=== PATIENT | female | born 1945 | race Caucasian/White ===

== ENCOUNTER 2018-05-18 19:21 | Inpatient (IN) ==
--- NOTE | 2018-05-18 20:25 | XR ---
EXAM DATE: 05/18/2018 7:31 PM EDT AGE/SEX: 73 years / Female INDICATIONS: Short of breath. CLINICAL DATA: This is the patient's initial encounter. Patient reports that signs and symptoms have been present for 1 day and indicates a pain score of 0/10. MEDICAL/SURGICAL HISTORY: Non-responsive. . COMPARISON: No prior exams available for comparison. FINDINGS: Mild left base consolidation noted. No pleural effusion seen. No pneumothorax. Heart size within normal limits. Thoracic aorta is mildly tortuous. CONCLUSION: Mild left base consolidation. Electronically signed by: Kyler García MD 05/18/2018 8:24 PM EDT
[2018-05-18 20:28] LABS: Baso # (Auto) 0.1 th/mm3 (0.0-0.2); Baso % (Auto) 0.7 % (0.0-2.0); Eos % (Auto) 0.2 % (0.0-4.0); Hematocrit 36.1 % (35.0-46.0); Hemoglobin 11.9 gm/dL (11.6-15.3); Lymph % (Auto) 5.8 % (9.0-44.0); Mean Corpuscular HGB Conc 33.1 % (32.0-36.0); Mean Corpuscular Hemoglobin 30.9 pg (27.0-34.0); Mean Corpuscular Volume 93.6 fL (80.0-100.0); Mean Platelet Volume 9.9 fL (7.0-11.0); Neut # (Auto) 14.6 th/mm3 (1.8-7.7); Neut % (Auto) 87.3 % (16.0-70.0); Platelet Count 238 th/mm3 (150-450); Red Blood Count 3.86 mil/mm3 (4.00-5.30); Red Cell Distribution Width 16.6 % (11.6-17.2); White Blood Count 16.7 th/mm3 (4.0-11.0)
[2018-05-18] MEDS ORDERED: Azithromycin Inj 500 MG in Sodium Chlor 0.9% Inj 250 ML IV.SIG ONE (20:41)
[2018-05-18 20:49] LABS: Calcium 8.8 mg/dL (8.5-10.1); Carbon Dioxide 23.5 meq/L (21.0-32.0); Potassium 5.3 meq/L (3.5-5.1)
--- NOTE | 2018-05-18 20:49 | ED ---
HPI General Chief Complaint: Shortness of Breath/Dyspnea Stated Complaint: [facility] [place] Time Seen by Provider: 05/18/18 19:31 Source: patient, EMS and RN notes reviewed Mode of arrival: EMS Limitations: altered mental status History of Present Illness 73-year-old female that presents to the ED via [facility] for evaluation of shortness of breath. Patient lives in an [place]. Patient apparently was found to have a low oxygenation in the 80s. Patient has a chronic history of COPD. She uses inhalers. Apparently EVAC gave her inhalers as well as oxygen. She uses 2 L of oxygen at home. She apparently was still low even after breathing treatments. The brought her here for evaluation. Patient oxygenation per EVAC was in the 90s low 90s. Patient herself does not complain of anything but she does have a history of dementia. Per history I was given by EVAC she has been more confused than usual. He has been having cough and congestion. Symptoms started today. Patient was given Solu-Medrol on the way here. No other medical issues. No chest pain. Patient herself does not really complain of anything and is a hard historian. Related Data Allergies Allergy/AdvReac Type Severity Reaction Status Date / Time penicillin G Allergy Unknown Rash Unverified 05/18/18 19:30 Review of Systems ROS: all other systems reviewed are negative PMFSH History History Provided By: Patient Medical History Medical History COPD (chronic obstructive pulmonary disease) (Acute) Dementia (Acute) Diabetes (Acute) Hypertension (Acute) Rheumatoid arthritis (Acute) Social History Social History Substance History: No History of Abuse Smoking Status: Former smoker How Often Do You Have a Drink Containing Alcohol: Never Recent Travel in [facility] within the Last 8 Weeks: No Recent Out of Country Travel within the Last 8 Weeks: No Exam Narrative Exam Narrative: GENERAL: Well groomed in some distress. SKIN: Focused skin assessment warm/dry. HEAD: Atraumatic. Normocephalic. EYES: Pupils equal and round. No scleral icterus. No injection or drainage. ENT: No nasal bleeding or discharge. Mucous membranes pink and moist. Tongue is midline. No uvula deviation. NECK: Trachea midline. No JVD. CARDIOVASCULAR: Regular rate and rhythm. No murmur appreciated. RESPIRATORY: No accessory muscle use. Clear to auscultation. Breath sounds equal bilaterally. GASTROINTESTINAL: Abdomen soft, non-tender, nondistended. Hepatic and splenic margins not palpable. MUSCULOSKELETAL: No obvious deformities. No clubbing. No cyanosis. No edema. Full range of the upper and lower extremities bilaterally. 2+ pulses bilaterally. NEUROLOGICAL: Awake and alert. No obvious cranial nerve deficits. Motor grossly within normal limits. Normal speech. PSYCHIATRIC: Appropriate mood and affect; insight and judgment normal. Course Initial Documented Vital Signs Temperature 99.9 F H 05/18/18 19:31 Pulse Rate 121 H 05/18/18 19:31 Respiratory Rate 22 05/18/18 19:31 Blood Pressure 147/67 H 05/18/18 19:31 Pulse Oximetry 94 L 05/18/18 19:31 Last Documented Vital Signs Temperature 99.9 F H 05/18/18 19:31 Pulse Rate 111 H 05/18/18 21:41 Respiratory Rate 21 05/18/18 21:41 Blood Pressure 105/58 L 05/18/18 21:41 Pulse Oximetry 97 05/18/18 21:41 Medical Decision Making YOBANI Attestation YOBANI supervised visit: Yes Attestation: I, Dr. Wei, have reviewed the advance practice practitioner's documentation and am in agreement, met with the patient face to face, made the diagnosis, and the medical decision making was done by me. The patient was initially evaluated by Carl, the YOBANI. Please see their complete history and physical. *My assessment and Findings: The patient presents with a history of shortness of breath noted by her assisted living facility staff prior to arrival. The patient unfortunately is a poor historian with a history of dementia. The patient's O2 saturations were noted to be in the 80s prior to arrival. On arrival, patient was noted to have increased work of breathing, tachypnea in spite of nebulizer treatments, therefore the patient was placed on BiPAP. The patient is DNR. The patient after reassessment on BiPAP reports that her shortness of breath is improved. She denies having any complaints of chest pain or pressure. During the course of the patient's emergency department visit, the patient's history, examination, and differential diagnosis were reviewed with the patient. The patient was placed on a conveyor monitor with oximetry and frequent blood pressure monitoring. The patient had IV access obtained and blood work sent for analysis. The patient was initially provided normal saline IV fluid bolus, albuterol nebulizer treatment, placement on BiPAP. The patient's laboratory studies were reviewed and remarkable for a white count of 16.7, hemoglobin 11.9, platelets 237 with 87.3 Neutrophils ABG done prior to BiPAP administration reveals a PO2 of 8.7, pH is 7.35, PCO2 42, PO2 66, hemoglobin 11.8, bicarb 23. Chemistry is remarkable for a potassium of 5.3, BUN 30, creatinine 1.83, lactic acid is 4.1. The patient will be continued on IV fluid resuscitation. The chest x-ray reveals mild left base consolidation. The patient on reexamination on BiPAP is improved regarding her shortness of breath, however she is tachycardic with a heart rate in the 120s and a blood pressure systolic 195/130. This appears to be atrial flutter. The patient will be given a dose of Cardizem IV. The patient's results were discussed with the patient, including the plan of care. I explained that further testing and/ or monitoring is indicated based on the patient's history, examination, and/ or laboratory findings. Therefore, I recommended admission for additional evaluation. The patient expressed understanding and was agreeable with this plan. The patient was admitted to the hospital in guarded condition and sent to a bed under the care of the [facility] service. [facility] Narrative Medical decision making narrative: 73-year-old female that presents to the ED for evaluation of shortness of breath. Patient was properly examined and was found to have signs and symptoms concerning for COPD exacerbation. Labs and imaging were ordered. Labs and imaging were positive for pneumonia and what appears to be respiratory distress. Patient was put on BiPAP as she could not do well with the oxygen and breathing treatments. She seems to be doing better. Chest x-ray did show pneumonia and elevated white blood cell count as well as lactic acidosis. Patient was started on antibiotics. ABG was recheck and oxygenation appears to have improved but patient started to become more acidotic. Settings for the BiPAP were changed from 10/5 to 15/5. Patient was given IV fluids as well. Overall patient herself looks better. Because of her possible pneumonia and lactic acidosis and need for BiPAP recommendations for admission. My attending Dr. Wei herself evaluate the patient agrees the patient can be admitted to medicine. Dr. Stark agreed to admission to her service. Medical Screen Exam Complete: Yes Emergency Medical Condition: Yes Differential Diagnosis Differential Diagnosis: Pneumonia versus COPD exacerbation versus respiratory failure versus respiratory distress Medical Records Medical records reviewed: Yes I reviewed the patient's medical records. Lab Data Lab results reviewed: Yes I reviewed the patient's lab results. Lab results narrative: Lactic acid elevated Result diagrams: 05/18/18 19:44 05/18/18 19:44 Lab Results 05/18/18 05/18/18 05/18/18 Range/Units 19:44 19:44 19:44 WBC 16.7 H (4.0-11.0) th/mm3 RBC 3.86 L (4.00-5.30) mil/mm3 Hgb 11.9 (11.6-15.3) gm/dL Hct 36.1 (35.0-46.0) % MCV 93.6 (80.0-100.0) fL MCH 30.9 (27.0-34.0) pg MCHC 33.1 (32.0-36.0) % RDW 16.6 (11.6-17.2) % Plt Count 238 (150-450) th/mm3 MPV 9.9 (7.0-11.0) fL Neut % (Auto) 87.3 H (16.0-70.0) % Lymph % (Auto) 5.8 L (9.0-44.0) % [place] % (Auto) 6.0 (0.0-8.0) % Eos % (Auto) 0.2 (0.0-4.0) % Baso % (Auto) 0.7 (0.0-2.0) % Neut # (Auto) 14.6 H (1.8-7.7) th/mm3 Lymph # (Auto) 1.0 (1.0-4.8) th/mm3 [place] # (Auto) 1.0 H (0.0-0.9) th/mm3 Eos # (Auto) 0.0 (0.0-0.4) th/mm3 Baso # (Auto) 0.1 (0.0-0.2) th/mm3 WBC Differential . Differential Comment Auto diff final Puncture Site Patient Temperature O2 Saturation (90-100) % ABG pH (7.380-7.420) ABG pCO2 (38-42) mmHg ABG pO2 (61-120) mmHg ABG HCO3 (22-26) mmol/L ABG O2 Content (12.0-20.0) Vol % ABG Base Excess (-2-2) mmol/L ABG Methemoglobin (0-2) % Laz Test Hemoglobin (12.0-16.0) G/DL Carboxyhemoglobin (0-4) % O2 Delivery Device Liter Flow L/M Vent Setting Inspired O2 % Critical Value Sodium 136 (136-145) meq/L Potassium 5.3 H (3.5-5.1) meq/L Chloride 99 (98-107) meq/L Carbon Dioxide 23.5 (21.0-32.0) meq/L Anion Gap 14 (5-15) meq/L BUN 30 H (7-18) mg/dL Creatinine 1.83 H (0.50-1.00) mg/dL Estimated GFR 27 L (>89) mL/min Random Glucose 251 H (74-106) mg/dL Lactic Acid 4.1 H* (0.4-2.0) mmol/L Calcium 8.8 (8.5-10.1) mg/dL 05/18/18 05/18/18 Range/Units 20:00 21:14 WBC (4.0-11.0) th/mm3 RBC (4.00-5.30) mil/mm3 Hgb (11.6-15.3) gm/dL Hct (35.0-46.0) % MCV (80.0-100.0) fL MCH (27.0-34.0) pg MCHC (32.0-36.0) % RDW (11.6-17.2) % Plt Count (150-450) th/mm3 MPV (7.0-11.0) fL Neut % (Auto) (16.0-70.0) % Lymph % (Auto) (9.0-44.0) % [place] % (Auto) (0.0-8.0) % Eos % (Auto) (0.0-4.0) % Baso % (Auto) (0.0-2.0) % Neut # (Auto) (1.8-7.7) th/mm3 Lymph # (Auto) (1.0-4.8) th/mm3 [place] # (Auto) (0.0-0.9) th/mm3 Eos # (Auto) (0.0-0.4) th/mm3 Baso # (Auto) (0.0-0.2) th/mm3 WBC Differential Differential Comment Puncture Site Right radial Left radial Patient Temperature 98.6 98.6 O2 Saturation 87 L* 91 (90-100) % ABG pH 7.35 L 7.27 L* (7.380-7.420) ABG pCO2 42 44 H (38-42) mmHg ABG pO2 66 82 (61-120) mmHg ABG HCO3 23 20 L (22-26) mmol/L ABG O2 Content 14.6 14.7 (12.0-20.0) Vol % ABG Base Excess -1.9 -6.0 L (-2-2) mmol/L ABG Methemoglobin 0.6 0.7 (0-2) % Laz Test Present Present Hemoglobin 11.8 L 11.4 L (12.0-16.0) G/DL Carboxyhemoglobin 1.7 1.4 (0-4) % O2 Delivery Device Mask Bipap Liter Flow 8.00 L/M Vent Setting Ipap10/epap5 Inspired O2 50 % Critical Value Yes Yes Sodium (136-145) meq/L Potassium (3.5-5.1) meq/L Chloride (98-107) meq/L Carbon Dioxide (21.0-32.0) meq/L Anion Gap (5-15) meq/L BUN (7-18) mg/dL Creatinine (0.50-1.00) mg/dL Estimated GFR (>89) mL/min Random Glucose (74-106) mg/dL Lactic Acid (0.4-2.0) mmol/L Calcium (8.5-10.1) mg/dL Imaging Data Attestation: I personally reviewed and interpreted this imaging study as follows : Radiologist's impression: Chest X-Ray 05/18/18 19:31 CONCLUSION: Mild left base consolidation. ECG Data Attestation: I personally reviewed and interpreted this ECG as follows: Interpretation: The patient had an EKG done that shows what appears to be atrial flutter with a heart rate of 127, QRS duration 119ms with a moderate intraventricular conduction delay, QTC [address] segment elevation. Discharge Plan Discharge Disposition Patient Disposition: 30 Still Patient Discharge Details Diagnosis: Respiratory failure, COPD exacerbation, Pneumonia Physicians Team ED Provider: Joie Wei ED Midlevel Provider: Carl Olivera Primary Care Provider: Carlos Broussard Attending Provider: Antonia Stark Status ED Status: Admitted Patient
[2018-05-18] MEDS ORDERED: Sod Chloride 0.9% Inj 1,000 ML IV.SIG SCH ×2 (20:56→21:30)
[2018-05-18 21:07] LABS: ABG Base Excess -1.9 mmol/L (-2-2); ABG PCO2 42 mmHg (38-42); ABG PO2 66 mmHg (61-120)
[2018-05-18 21:48] LABS: ABG PCO2 44 mmHg (38-42); ABG PO2 82 mmHg (61-120)
[2018-05-18] MEDS ORDERED: Dextrose 50% in Water 50 ML Vial IV.PUSH PRN (23:14)
[2018-05-18] MEDS ORDERED: Bisacodyl 10 MG Supp RECTAL PRN (23:15)
[2018-05-18] MEDS ORDERED: Acetaminophen 325 MG Tablet PO PRN (23:15)
[2018-05-18] MEDS ORDERED: MethylPREDNISolone Sod Succinate Inj 125 MG/2 ML Vial IV.PUSH ONE (23:19)
[2018-05-18] MEDS ORDERED: Vancomycin Consult Pharmacy OTHER PRN (23:26)
--- NOTE | 2018-05-18 23:34 | P.HP ---
History of Present Illness Service: [facility] Primary Care Physician: Carlos Broussard MD History of Present Illness: 73-year-old female with past medical history significant for COPD, dementia, diabetes mellitus, hypertension and rheumatoid arthritis presents to the emergency department for increased work of breathing and confusion. The patient 's daughter reports that staff from [facility] called and stated that her mother had been confused, short of breath and had increased work of breathing despite multiple breathing treatments at the [facility]. The patient denies any fever/chills. No chest pain. No abdominal pain. No nausea/vomiting/diarrhea. No lateralizing signs/symptoms. Cough is at baseline. Patient remains hypoxic despite 8 L nasal cannula and was placed on BiPAP in the emergency department with good response. Inpatient Certification: I certify that the inpatient services were ordered in accordance with Medicare regulations governing the order. This includes certification that hospital inpatient services are reasonable and necessary and in the case of services not specified as inpatient-only under 42 CFR 419.22(n), that they are appropriately provided as inpatient services in accordance to with the 2-midnight benchmark under 43 CFR 412.3(e) Estimated Total Length of Stay (Days): 2 Plans for Post Hospital Care: SNF Review of Systems All other systems reviewed negative except as stated in HPI PMFSH - History History Provided By: Patient - Medical History Medical History: Medical History (Last Reviewed 05/18/18 @ 20:51 by DULCE Hare) COPD (chronic obstructive pulmonary disease) Dementia Diabetes Hypertension Rheumatoid arthritis - Surgical History Surgical History: Surgical History (Last Updated 05/18/18 @ 23:23 by Antonia Stark MD) History of hip surgery Hx of cholecystectomy - Family History Family History: Family History (Last Updated 05/18/18 @ 23:23 by Antonia Stark MD) Other Diabetes mellitus - Tobacco History Smoking Status: Former smoker - Alcohol History How Often Do You Have a Drink Containing Alcohol: Never - Substance Use History Substance History: No History of Abuse - Travel History Recent Travel in the [place] Within the Last 8 Weeks: No Recent Travel Out of the Country Within the Last 8 Weeks: No - Immunization History Tetanus Immunization: Unsure Hx Influenza Vaccine This Season: No Medications and Allergies Active Medications: Active Medications Sodium Chloride (Ns Inj) 1,000 mls @ 0 mls/hr IV.SIG BOLUS CHARISSE Last Infusion: 05/18/18 22:07 Dose: Infused Sodium Chloride (Ns Inj) 1,000 mls @ 0 mls/hr IV.SIG BOLUS CHARISSE Last Infusion: 05/18/18 23:16 Dose: Infused Allergies Allergy/AdvReac Type Severity Reaction Status Date / Time penicillin G Allergy Unknown Rash Unverified 05/18/18 19:30 Exam Vital signs: Vital Signs 05/18/18 19:31 05/18/18 19:43 05/18/18 19:53 Temperature 99.9 F H Pulse Rate 121 H 122 H 124 H Respiratory Rate 22 22 22 Blood Pressure 147/67 H Pulse Oximetry 94 L 05/18/18 20:03 05/18/18 20:30 05/18/18 20:34 Temperature Pulse Rate 123 H 126 H Respiratory Rate 20 22 Blood Pressure 125/56 L Pulse Oximetry 96 96 05/18/18 21:00 05/18/18 21:31 05/18/18 21:41 Temperature Pulse Rate 126 H 111 H Respiratory Rate 20 21 Blood Pressure 195/131 H 105/58 L Pulse Oximetry 97 97 97 Intake & Output 05/18/18 05/18/18 05/19/18 06:59 18:59 06:59 Intake Total 2099 Balance 2099 Weight 74.843 kg Intake: IV 2099 NS Inj 1,000 ML @ Wide Open IV. 1999 SIG BOLUS CHARISSE Rx#:[id number] Rocephin Inj 1,000 MG In NS Inj 100 / 100 100 ML @ 200 mls/hr IV.SIG ONCE ONE Rx#:[id number] Narrative: Gen.: No acute distress Head: Normocephalic. Atraumatic. EENT: Pupils equal round and reactive to light. Nose without drainage. Airway intact. Throat without injection. Cardiovascular: Regular rate and rhythm. No murmurs, rubs or gallops. Respiratory: Lungs clear to auscultation bilaterally. Extremely poor air movement. Abdomen: Soft, nontender, nondistended. No peritoneal signs. Musculoskeletal: No gross deformities. No edema. Skin: No obvious rashes or erythema. Neuro: Sensory and motor grossly intact. Cranial nerves II through XII grossly intact. Results - Labs CBC & Chem 7: 05/18/18 19:44 05/18/18 19:44 Labs: Laboratory Results - last 24 hr 05/18/18 05/18/1805/18/18 19:44 19:44 19:44 WBC 16.7 H RBC 3.86 L Hgb 11.9 Hct 36.1 MCV 93.6 MCH 30.9 MCHC 33.1 RDW 16.6 Plt Count 238 MPV 9.9 Neut % (Auto) 87.3 H Lymph % (Auto) 5.8 L [place] % (Auto) 6.0 Eos % (Auto) 0.2 Baso % (Auto) 0.7 Neut # (Auto) 14.6 H Lymph # (Auto) 1.0 [place] # (Auto) 1.0 H Eos # (Auto) 0.0 Baso # (Auto) 0.1 WBC Differential . Differential Comment Auto diff final Puncture Site Patient Temperature O2 Saturation ABG pH ABG pCO2 ABG pO2 ABG HCO3 ABG O2 Content ABG Base Excess ABG Methemoglobin Laz Test Hemoglobin Carboxyhemoglobin O2 Delivery Device Liter Flow Vent Setting Inspired O2 Critical Value Sodium 136 Potassium 5.3 H Chloride 99 Carbon Dioxide 23.5 Anion Gap 14 BUN 30 H Creatinine 1.83 H Estimated GFR 27 L Random Glucose 251 H Lactic Acid 4.1 H* Calcium 8.8 05/18/18 05/18/18 20:00 21:14 WBC RBC Hgb Hct MCV MCH MCHC RDW Plt Count MPV Neut % (Auto) Lymph % (Auto) [place] % (Auto) Eos % (Auto) Baso % (Auto) Neut # (Auto) Lymph # (Auto) [place] # (Auto) Eos # (Auto) Baso # (Auto) WBC Differential Differential Comment Puncture Site Right radial Left radial Patient Temperature 98.6 98.6 O2 Saturation 87 L* 91 ABG pH 7.35 L 7.27 L* ABG pCO2 42 44 H ABG pO2 66 82 ABG HCO3 23 20 L ABG O2 Content 14.6 14.7 ABG Base Excess -1.9 -6.0 L ABG Methemoglobin 0.6 0.7 Laz Test Present Present Hemoglobin 11.8 L 11.4 L Carboxyhemoglobin 1.7 1.4 O2 Delivery Device Mask Bipap Liter Flow 8.00 Vent Setting Ipap10/epap5 Inspired O2 50 Critical Value Yes Yes Sodium Potassium Chloride Carbon Dioxide Anion Gap BUN Creatinine Estimated GFR Random Glucose Lactic Acid Calcium - Imaging Impressions Chest X-Ray 05/18/18 19:31 CONCLUSION: Mild left base consolidation. Caprini VTE Risk Assessment Caprini VTE Risk Assessment: Moderate/High Risk (score >= 2) Caprini Risk Assessment Model: Point Value = 1 Point Value = 2 Point Value = 3 Point Value = 5 Age 41-60 Minor surgery BMI > 25 kg/m2 Swollen legs Varicose veins or History of unexplained or recurrent spontaneous Oral contraceptives or hormone replacement Sepsis (< 1 month) Serious lung disease, including pneumonia (< 1 month) Abnormal pulmonary function Acute myocardial infarction Congestive heart failure (< 1 month) History of inflammatory bowel disease Medical patient at bed rest Age 61-74 Arthroscopic surgery Major open surgery (> 45 min) Laparoscopic surgery (> 45 min) Malignancy Confined to bed (> 72 hours) Immobilizing plaster cast Central venous access Age >= 75 History of VTE Family history of VTE Factor V Leiden Prothrombin [id number] Lupus anticoagulant Anticardiolipin antibodies Elevated serum homocysteine Heparin-induced thrombocytopenia Other congenital or acquired thrombophilia Stroke (< 1 month) Elective arthroplasty Hip, pelvis, or leg fracture Acute spinal cord injury (< 1 month) Prophylaxis Regimen: Total Risk Factor Score Risk Level Prophylaxis Regimen 0-1 Low Early ambulation 2 Moderate Order ONE of the following: *Sequential Compression Device (SCD) *Heparin 5000 units SQ BID 3-4 Higher Order ONE of the following medications: *Heparin 5000 units SQ TID *Enoxaparin/Lovenox 40 mg SQ daily (WT < 150 kg, CrCl > 30 mL/min) *Enoxaparin/Lovenox 30 mg SQ daily (WT < 150 kg, CrCl > 10-29 mL/min) *Enoxaparin/Lovenox 30 mg SQ BID (WT < 150 kg, CrCl > 30 mL/min) AND/OR *Sequential Compression Device (SCD) 5 or more Highest Order ONE of the following medications: *Heparin 5000 units SQ TID (Preferred with Epidurals) *Enoxaparin/Lovenox 40 mg SQ daily (WT < 150 kg, CrCl > 30 mL/min) *Enoxaparin/Lovenox 30 mg SQ daily (WT < 150 kg, CrCl > 10-29 mL/min) *Enoxaparin/Lovenox 30 mg SQ BID (WT < 150 kg, CrCl > 30 mL/min) AND *Sequential Compression Device (SCD) Assessment and Plan - Plan Assessment/plan: 1. Shortness of breath/COPD exacerbation/healthcare associated pneumonia/sepsis Patient with leukocytosis, elevated lactic acid, tachycardia and hypoxia Chest x-ray significant for left base consolidation, personally reviewed Vancomycin, aztreonam and azithromycin given penicillin allergy Continue home BiPAP, wean as tolerated Duo nebs IV steroids IV fluids Repeat lactic acid pending 2. Diabetes mellitus Sliding scale insulin Monitor blood glucose 3. Hypertension/dementia/rheumatoid arthritis Continue home medications once reconciled 4. Acute kidney injury Creatinine 1.83, no recent baseline for comparison Likely chronic component Monitor renal function IV fluid hydration FEN: Regular diet Electrolytes: Monitor and replete as needed NS at 84 cc/hour Heparin
[2018-05-19] MEDS ORDERED: Sod Chloride 0.9% Inj 1,000 ML IV.SIG SCH (00:15)
[2018-05-19] MEDS: Heparin - SQ 10,000 UNITS/ML Vial SQ SCH ×3 (00:20→22:40)
[2018-05-19] MEDS: Aztreonam Inj 2 GM in Sodium Chloride 0.9% Inj 100 ML IV.SIG SCH ×3 (00:21→17:13)
[2018-05-19] MEDS ORDERED: Sodium Bicarbonate 8.4% Inj 50 MEQ/50 ML Syringe IV.PUSH ONE (00:46)
[2018-05-19] MEDS: Sod Chloride 0.9% Inj 1,000 ML IV.CONT SCH ×3 (00:58→12:23)
[2018-05-19] MEDS ORDERED: Vancomycin Inj 1,000 MG in Sodium Chlor 0.9% Inj 250 ML IV.SIG ONE (01:00)
[2018-05-19 01:48] LABS: ABG Base Excess -9.9 mmol/L (-2-2); ABG PCO2 45 mmHg (38-42); ABG PO2 92 mmHg (61-120)
[2018-05-19 03:33] LABS: ABG Base Excess -9.1 mmol/L (-2-2); ABG PCO2 40 mmHg (38-42); ABG PO2 59 mmHG (61-120)
[2018-05-19] MEDS: Insulin NovoLOG Aspart Correctional Sugar Inj SQ SCH ×5 (04:02→20:41)
[2018-05-19] MEDS ORDERED: Morphine Inj 4 MG/ML Vial IV.PUSH PRN (05:00)
[2018-05-19 05:34] LABS: Baso % (Auto) 0.2 % (0.0-2.0); Eos % (Auto) 0.2 % (0.0-4.0); Hemoglobin 10.1 gm/dL (11.6-15.3); Lymph # (Auto) 0.4 th/mm3 (1.0-4.8); Lymph % (Auto) 3.3 % (9.0-44.0); Mean Corpuscular Hemoglobin 30.5 pg (27.0-34.0); Mean Corpuscular Volume 99.4 fL (80.0-100.0); Mean Platelet Volume 9.2 fL (7.0-11.0); Mono # (Auto) 0.2 th/mm3 (0.0-0.9); Mono % (Auto) 1.8 % (0.0-8.0); Neut # (Auto) 11.6 th/mm3 (1.8-7.7); Neut % (Auto) 94.5 % (16.0-70.0); Platelet Count 162 th/mm3 (150-450); Red Blood Count 3.32 mil/mm3 (4.00-5.30); Red Cell Distribution Width 16.9 % (11.6-17.2); White Blood Count 12.3 th/mm3 (4.0-11.0)
[2018-05-19 05:37] LABS: Mean Corpuscular HGB Conc 30.7 % (32.0-36.0)
[2018-05-19 05:55] LABS: Calcium 6.9 mg/dL (8.5-10.1); Potassium 4.8 meq/L (3.5-5.1)
[2018-05-19] MEDS ORDERED: MethylPREDNISolone Sod Succinate Inj 40 MG/ML Vial IV.PUSH SCH (06:00)
[2018-05-19 06:10] LABS: Total Protein 6.1 g/dL (6.4-8.2)
[2018-05-19 06:25] LABS: ABG Base Excess -5.4 mmol/L (-2-2); ABG PCO2 43 mmHg (38-42); ABG PO2 64 mmHG (61-120)
[2018-05-19] MEDS: Insulin Detemir Inj 1,000 UNIT/10 ML Vial SQ SCH ×3 (07:00→20:40)
[2018-05-19] MEDS ORDERED: clonazePAM 0.5 MG Tablet PO SCH (09:00)
[2018-05-19] MEDS: Senna/Docusate Sodium 8.6/50 MG Tablet PO SCH ×2 (10:39→20:39)
[2018-05-19] MEDS: Sertraline 100 MG Tablet PO SCH (10:40)
--- NOTE | 2018-05-19 10:47 | P.PNIM ---
Subjective Interval history: The patient was resting comfortably in bed. She complained of some right leg tenderness after a fall a few days ago. She said her breathing was under control. She did not want the facemask. Her family was at the bedside and their questions were answered. Also discussed with nursing. Physical Exam Vital signs: Vital Signs 05/18/18 19:31 05/18/18 19:43 05/18/18 19:53 Temperature 99.9 F H Pulse Rate 121 H 122 H 124 H Respiratory Rate 22 22 22 Blood Pressure 147/67 H Pulse Oximetry 94 L 05/18/18 20:03 05/18/18 20:30 05/18/18 20:34 Temperature Pulse Rate 123 H 126 H Respiratory Rate 20 22 Blood Pressure 125/56 L Pulse Oximetry 96 96 05/18/18 21:00 05/18/18 21:31 05/18/18 21:41 Temperature Pulse Rate 126 H 111 H Respiratory Rate 20 21 Blood Pressure 195/131 H 105/58 L Pulse Oximetry 97 97 97 05/19/18 00:03 05/19/18 00:20 05/19/18 00:27 Temperature Pulse Rate 103 H 98 H Respiratory Rate Blood Pressure 109/55 L 106/50 L Pulse Oximetry 97 99 98 05/19/18 01:20 05/19/18 01:30 05/19/18 01:45 Temperature 97 F L Pulse Rate 102 H Respiratory Rate 22 Blood Pressure 101/70 Pulse Oximetry 100 90 L 93 L 05/19/18 02:00 05/19/18 02:48 05/19/18 03:00 Temperature 98.4 F Pulse Rate 102 H 94 H Respiratory Rate 20 Blood Pressure 107/56 L Pulse Oximetry 93 L 91 L 05/19/18 04:00 05/19/18 05:00 05/19/18 06:00 Temperature Pulse Rate 90 90 88 Respiratory Rate Blood Pressure Pulse Oximetry 05/19/18 07:00 05/19/18 08:00 05/19/18 08:32 Temperature Pulse Rate 86 Respiratory Rate Blood Pressure Pulse Oximetry 99 99 98 Intake & Output 05/18/18 05/19/18 05/19/18 18:59 06:59 18:59 Intake Total 3700 / 3700 Balance 3700 / 3700 Weight 74.843 kg Intake: IV 3700 / 3700 Azactam Inj 2 GM In NS Inj 100 100 / 100 ML @ 200 mls/hr IV.SIG Q8H [facility] Rx#:[id number] NS Inj 1,000 ML @ Wide Open IV. 3000 / 3000 SIG BOLUS [facility] Rx#:[id number] Vancomycin Inj 1,000 MG In NS 250 / 250 Inj 250 ML @ 250 mls/hr IV.SIG ONCE ONE Rx#:[id number] Rocephin Inj 1,000 MG In NS Inj 100 / 100 100 ML @ 200 mls/hr IV.SIG ONCE ONE Rx#:[id number] Other: # Incontinent Voids 1 # Bowel Movements 0 Narrative: Gen.: No acute distress Head: Normocephalic. Atraumatic. EENT: Pupils equal round and reactive to light. Nose without drainage. Airway intact. Throat without injection. Cardiovascular: Regular rate and rhythm. No murmurs, rubs or gallops. Respiratory: Mild wheezing. Poor air movement. Abdomen: Soft, nontender, nondistended. No peritoneal signs. Musculoskeletal: No gross deformities. No edema. Skin: No obvious rashes or erythema. Neuro: Sensory and motor grossly intact. Cranial nerves II through XII grossly intact. Results - Labs CBC & Chem 7: 05/19/18 04:12 05/19/18 04:12 Laboratory Results - last 24 hr 05/18/18 05/18/18 05/18/18 19:44 19:44 19:44 WBC 16.7 H RBC 3.86 L Hgb 11.9 Hct 36.1 MCV 93.6 MCH 30.9 MCHC 33.1 RDW 16.6 Plt Count 238 MPV 9.9 Neut % (Auto) 87.3 H Lymph % (Auto) 5.8 L [place] % (Auto) 6.0 Eos % (Auto) 0.2 Baso % (Auto) 0.7 Neut # (Auto) 14.6 H Lymph # (Auto) 1.0 [place] # (Auto) 1.0 H Eos # (Auto) 0.0 Baso # (Auto) 0.1 WBC Differential . Differential Comment Auto diff final Puncture Site Patient Temperature O2 Saturation ABG pH ABG pCO2 ABG pO2 ABG HCO3 ABG O2 Content ABG Base Excess ABG Methemoglobin Laz Test Hemoglobin Carboxyhemoglobin O2 Delivery Device Liter Flow Vent Setting Inspired O2 Critical Value Sodium 136 Potassium 5.3 H Chloride 99 Carbon Dioxide 23.5 Anion Gap 14 BUN 30 H Creatinine 1.83 H Estimated GFR 27 L POC Glucose Random Glucose 251 H Lactic Acid 4.1 H* Calcium 8.8 Prot Corrected Calcium Total Protein 05/18/18 05/18/18 05/18/18 20:00 21:14 23:15 WBC RBC Hgb Hct MCV MCH MCHC RDW Plt Count MPV Neut % (Auto) Lymph % (Auto) [place] % (Auto) Eos % (Auto) Baso % (Auto) Neut # (Auto) Lymph # (Auto) [place] # (Auto) Eos # (Auto) Baso # (Auto) WBC Differential Differential Comment Puncture Site Right radial Left radial Patient Temperature 98.6 98.6 O2 Saturation 87 L* 91 ABG pH 7.35 L 7.27 L* ABG pCO2 42 44 H ABG pO2 66 82 ABG HCO3 23 20 L ABG O2 Content 14.6 14.7 ABG Base Excess -1.9 -6.0 L ABG Methemoglobin 0.6 0.7 Alz Test Present Present Hemoglobin 11.8 L 11.4 L Carboxyhemoglobin 1.7 1.4 O2 Delivery Device Mask Bipap Liter Flow 8.00 Vent Setting [id number] Inspired O2 50 Critical Value Yes Yes Sodium Potassium Chloride Carbon Dioxide Anion Gap BUN Creatinine Estimated GFR POC Glucose Random Glucose Lactic Acid 6.2 H* Calcium Prot Corrected Calcium Total Protein 05/19/18 05/19/18 05/19/18 00:07 03:17 03:29 WBC RBC Hgb Hct MCV MCH MCHC RDW Plt Count MPV Neut % (Auto) Lymph % (Auto) [place] % (Auto) Eos % (Auto) Baso % (Auto) Neut # (Auto) Lymph # (Auto) [place] # (Auto) Eos # (Auto) Baso # (Auto) WBC Differential Differential Comment Puncture Site Right radial Right radial Patient Temperature 98.6 98.6 O2 Saturation 92 82 L* ABG pH 7.20 L* 7.25 L* ABG pCO2 45 H 40 ABG pO2 92 59 L* ABG HCO3 17 L 17 L ABG O2 Content 13.5 11.5 L ABG Base Excess -9.9 L -9.1 L ABG Methemoglobin 0.6 1.5 Laz Test Present Present Hemoglobin 10.3 L 9.9 L Carboxyhemoglobin 1.1 1.1 O2 Delivery Device Bipap Bipap Liter Flow Vent Setting [id number] See comments Inspired O2 50 65 Critical Value Yes Yes Sodium Potassium Chloride Carbon Dioxide Anion Gap BUN Creatinine Estimated GFR POC Glucose 524 H* Random Glucose Lactic Acid Calcium Prot Corrected Calcium Total Protein 05/19/18 05/19/18 05/19/18 03:31 04:12 04:12 WBC 12.3 H RBC 3.32 L Hgb 10.1 L Hct 33.0 L MCV 99.4 D MCH 30.5 MCHC 30.7 L RDW 16.9 Plt Count 162 D MPV 9.2 Neut % (Auto) 94.5 H Lymph % (Auto) 3.3 L [place] % (Auto) 1.8 Eos % (Auto) 0.2 Baso % (Auto) 0.2 Neut # (Auto) 11.6 H Lymph # (Auto) 0.4 L [place] # (Auto) 0.2 Eos # (Auto) 0.0 Baso # (Auto) 0.0 WBC Differential . Differential Comment Auto diff final Puncture Site Patient Temperature O2 Saturation ABG pH ABG pCO2 ABG pO2 ABG HCO3 ABG O2 Content ABG Base Excess ABG Methemoglobin Laz Test Hemoglobin Carboxyhemoglobin O2 Delivery Device Liter Flow Vent Setting Inspired O2 Critical Value Sodium 143 Potassium 4.8 Chloride 108 H D Carbon Dioxide 18.0 L Anion Gap 17 H BUN 34 H Creatinine 2.34 H Estimated GFR 20 L POC Glucose 475 H* Random Glucose 536 H* D Lactic Acid Calcium 6.9 L* D Prot Corrected Calcium 7.4 L* Total Protein 6.1 L 05/19/18 05/19/18 05:45 06:45 WBC RBC Hgb Hct MCV MCH MCHC RDW Plt Count MPV Neut % (Auto) Lymph % (Auto) [place] % (Auto) Eos % (Auto) Baso % (Auto) Neut # (Auto) Lymph # (Auto) [place] # (Auto) Eos # (Auto) Baso # (Auto) WBC Differential Differential Comment Puncture Site Right radial Patient Temperature 98.6 O2 Saturation 87 L* ABG pH 7.29 L* ABG pCO2 43 H ABG pO2 64 ABG HCO3 20 L ABG O2 Content 12.2 ABG Base Excess -5.4 L ABG Methemoglobin 1.5 Laz Test Present Hemoglobin 10.0 L Carboxyhemoglobin 1.1 O2 Delivery Device Bipap Liter Flow Vent Setting Ipap 5, epap 15 Inspired O2 75 Critical Value Yes Sodium Potassium Chloride Carbon Dioxide Anion Gap BUN Creatinine Estimated GFR POC Glucose 517 H* Random Glucose Lactic Acid Calcium Prot Corrected Calcium Total Protein - Imaging Impressions Chest X-Ray 05/18/18 19:31 CONCLUSION: Mild left base consolidation. Assessment and Plan - Plan Shortness of breath/COPD exacerbation/healthcare associated pneumonia/sepsis Patient with leukocytosis, elevated lactic acid, tachycardia and hypoxia. Chest x-ray significant for left base consolidation. -Vancomycin, aztreonam and azithromycin given penicillin allergy. -Continue home BiPAP, wean as tolerated. -Duo nebs. -IV fluids. -the pt is DNR. Consider hospice if no improvement. Diabetes mellitus ? DKA. -Sliding scale and long acting insulin. -Monitor blood glucose. -transfer to ICU and start insulin gtt if no improvement. Hypertension/dementia/rheumatoid arthritis -Continue home medications. Acute kidney injury Creatinine 1.83, no recent baseline for comparison Likely chronic component Monitor renal function IV fluid hydration PPx: Heparin
[2018-05-19] MEDS: amLODIPine 10 MG Tablet PO SCH (11:07)
[2018-05-19] MEDS: Lisinopril 10 MG Tablet PO SCH (11:07)
[2018-05-19 13:45] LABS: Calcium 7.5 mg/dL (8.5-10.1); Carbon Dioxide 24.6 meq/L (21.0-32.0); Potassium 4.2 meq/L (3.5-5.1)
[2018-05-19] MEDS: clonazePAM 0.5 MG Tablet PO PRN (17:48)
[2018-05-19] MEDS ORDERED: Azithromycin Inj 500 MG in Sodium Chlor 0.9% Inj 250 ML IV.SIG SCH (20:00)
--- NOTE | 2018-05-19 20:19 | MB ---
cc: Tony Quintana MD DATE: 05/19/2018 REASON FOR CONSULTATION: Respiratory failure and pneumonia. HISTORY OF PRESENT ILLNESS: This is a 73-year-old lady who has been admitted through the emergency room with complaints of shortness of breath, hypoxemia and respiratory failure. The patient has been at the [facility] and apparently was previously treated for COPD, dementia, diabetes and hypertension, as well as rheumatoid arthritis. She was noted to have altered mental status and respiratory distress. Upon arrival in the emergency room, blood gases showed mild hypercapnia with hypoxemia and she was placed on a partial rebreather mask and subsequently on a BiPAP mask at 10/5 and 50%. The patient did improve over the next several hours and this morning, she has been switched to a nasal cannula at 5 liters. The patient is alert and cooperative, answers most questions appropriately. Denies chest pains, but does have a persistent cough and brings up very little mucus. Chest x-ray upon arrival did demonstrate a left basilar infiltrate and she is on IV Rocephin and Zithromax. PAST MEDICAL HISTORY: As mentioned above, significant for diabetes, dementia, hypertension, rheumatoid arthritis, COPD. PAST SURGICAL HISTORY: She has had a right hip surgery for fracture and a previous cholecystectomy. HABITS: The patient smoked 1 pack per day for over 50 years and then quit. Occasional alcohol use. FAMILY HISTORY: Noncontributory. REVIEW OF SYSTEMS: The patient has joint pains, wheezing, shortness of breath, epigastric distress and reflux. She has urinary frequency. She denies any headaches or blackout spells. No skin lesions. MEDICATIONS: 1. Levemir insulin 10 units at bedtime. 2. NovoLog insulin 3 units t.i.d. 3. Presently on heparin 5000 units subcutaneous b.i.d. 4. Aztreonam 2 grams IV every 8 hours. 5. Zithromax 500 mg daily. 6. Nebulized DuoNeb solution q.i.d. 7. Amlodipine 10 mg a day. FAMILY HISTORY: Essentially noncontributory. PHYSICAL EXAMINATION: GENERAL: This obese, elderly white female is alert and face is flushed. VITAL SIGNS: Blood pressure is 130/70, pulse is 112, respirations 22, temperature 99.2. HEENT: Head is normocephalic. Pupils are reactive. Tongue is dry. Throat is injected. Nasal mucosa is edematous. NECK: Supple, no bruits or thyroid enlargement or lymphadenopathy. CHEST: Equal movements with crackles at both lung bases with diffuse wheezes bilaterally. HEART: Regular, S1 and S2 with no murmur, no S3. ABDOMEN: Soft, protuberant without masses. No organomegaly or tenderness. Bowel sounds are active. EXTREMITIES: No edema. There is scar from previous surgery on the right hip area. No calf tenderness on either side. Reflexes are 1+ with no gross motor deficits. Cranial nerves grossly intact. SKIN: Dry and warm. ASSESSMENT: 1. Left basilar pneumonia and hypoxemia. 2. Acute kidney injury with chronic kidney disease. 3. Diabetes mellitus type 2. 4. Chronic obstructive pulmonary disease with acute exacerbation. 5. Hypertension. 6. Rheumatoid arthritis. 7. Exogenous obesity and possible sleep apnea. PLAN: The patient will be maintained on O2 at 4 liters nasal cannula. We will also place on BiPAP at night, and she will be continued on IV fluids for hydration at 75 mL an hour. Continue with IV Zithromax 500 mg daily and aztreonam 2 grams IV every 12 hours. A followup chest x-ray to be done in a.m. Sputum will be sent for Gram stain and culture. The patient will be maintained on insulin per sliding scale. The patient will be sent for a pulmonary function study when she is clinically stable and we will try to wean her oxygen down to [address]. [address] Stark for this consultation. MD SANDY Holman/lilia , 06:54 PM , 07:10 PM
[2018-05-19] MEDS: Mirtazapine 15 MG Tablet PO SCH (20:39)
[2018-05-19] MEDS: Melatonin 5 MG Tablet PO SCH (20:40)
[2018-05-19] MEDS: Azithromycin Inj 500 MG in Sodium Chlor 0.9% Inj 250 ML IV.SIG SCH (20:42)
--- NOTE | 2018-05-19 21:15 | ECG ---
Date Performed: 05/18/2018 Time Performed: 21:02:06 PTAGE: 73 years EKG: SINUS TACHYCARDIA WITH PACS MARKED LEFT AXIS DEVIATION MODERATE INTRAVENTRICULAR CONDUCTION DELAY MINIMAL ST DEPRESSION ABNORMAL ECG Compared to PREVIOUS TRACING , ST, left axis and IVCD present. DOCTOR: Henrique Edmondson Interpretating Date/Time 05/19/2018 21:14:03
[2018-05-20] MEDS: Aztreonam Inj 2 GM in Sodium Chloride 0.9% Inj 100 ML IV.SIG SCH ×3 (00:39→16:08)
[2018-05-20] MEDS: Sod Chloride 0.9% Inj 1,000 ML IV.CONT SCH ×2 (03:19→04:14)
[2018-05-20] MEDS: Insulin NovoLOG Aspart Correctional Sugar Inj SQ SCH ×4 (03:27→17:47)
[2018-05-20 05:12] LABS: Baso % (Auto) 0.2 % (0.0-2.0); Hematocrit 31.7 % (35.0-46.0); Lymph # (Auto) 0.4 th/mm3 (1.0-4.8); Mean Corpuscular HGB Conc 31.5 % (32.0-36.0); Mean Corpuscular Volume 95.5 fL (80.0-100.0); Mean Platelet Volume 9.9 fL (7.0-11.0); Mono # (Auto) 0.6 th/mm3 (0.0-0.9); Mono % (Auto) 2.9 % (0.0-8.0); Neut # (Auto) 21.2 th/mm3 (1.8-7.7); Neut % (Auto) 94.9 % (16.0-70.0); Platelet Count 183 th/mm3 (150-450); Red Blood Count 3.32 mil/mm3 (4.00-5.30); Red Cell Distribution Width 17.3 % (11.6-17.2); White Blood Count 22.4 th/mm3 (4.0-11.0)
[2018-05-20 05:45] LABS: Calcium 7.4 mg/dL (8.5-10.1); Carbon Dioxide 26.2 meq/L (21.0-32.0); Phosphorus 2.4 mg/dL (2.5-4.9); Potassium 4.4 meq/L (3.5-5.1); Vancomycin,Random 11.7 Comment
[2018-05-20 05:59] LABS: Total Protein 5.9 g/dL (6.4-8.2)
[2018-05-20] MEDS ORDERED: Sodium Chloride 0.9% 2 ML Flush PRN IV.FLUSH (08:31)
[2018-05-20] MEDS: amLODIPine 10 MG Tablet PO SCH (09:30)
[2018-05-20] MEDS: Senna/Docusate Sodium 8.6/50 MG Tablet PO SCH ×2 (09:30→22:24)
[2018-05-20] MEDS: Insulin Detemir Inj 1,000 UNIT/10 ML Vial SQ SCH ×2 (09:32→22:25)
[2018-05-20] MEDS: Lisinopril 10 MG Tablet PO SCH (09:35)
[2018-05-20] MEDS: Sodium Chloride 0.9% 2 ML Flush BID IV.FLUSH SCH ×2 (09:36→22:24)
[2018-05-20] MEDS: Sertraline 100 MG Tablet PO SCH (09:36)
--- NOTE | 2018-05-20 10:28 | P.PNIM ---
Subjective Interval history: The patient was resting in bed. She was on nasal cannula. She says she was having some right-sided hip pain that would shoot down to her right knee. She said she choked on her food earlier. Discussed with nursing. Physical Exam Vital signs: Vital Signs 05/19/18 11:00 05/19/18 12:00 05/19/18 13:00 Temperature 98.2 F Pulse Rate 92 H 90 91 H Respiratory Rate 18 Blood Pressure 123/69 Pulse Oximetry 96 05/19/18 13:05 05/19/18 14:00 05/19/18 15:00 Temperature Pulse Rate 96 H 98 H Respiratory Rate Blood Pressure Pulse Oximetry 100 05/19/18 16:00 05/19/18 17:00 05/19/18 18:00 Temperature 98.3 F Pulse Rate 92 H 92 H 88 Respiratory Rate Blood Pressure 123/69 Pulse Oximetry 94 L 05/19/18 19:00 05/19/18 19:43 05/19/18 19:46 Temperature Pulse Rate 92 H 94 H Respiratory Rate 22 Blood Pressure Pulse Oximetry 99 05/19/18 20:00 05/19/18 21:00 05/19/18 22:00 Temperature 98.6 F Pulse Rate 94 H 110 H 102 H Respiratory Rate 20 Blood Pressure 118/62 Pulse Oximetry 100 05/19/18 23:00 05/20/18 00:00 05/20/18 00:10 Temperature 96.7 F L Pulse Rate 90 86 Respiratory Rate 16 Blood Pressure 124/73 Pulse Oximetry 100 100 05/20/18 04:00 05/20/18 04:51 05/20/18 07:40 Temperature 96.5 F L Pulse Rate 78 Respiratory Rate 16 Blood Pressure 115/60 Pulse Oximetry 100 94 L 87 L 05/20/18 07:52 05/20/18 08:03 Temperature 98.1 F Pulse Rate 86 Respiratory Rate 17 Blood Pressure 122/73 Pulse Oximetry 95 95 Intake & Output 05/19/18 05/20/18 05/20/18 18:59 06:59 18:59 Intake Total 1820 / 1820 1690 / 1690 500 / 500 Output Total 300 / 300 Balance 1820 / 1820 1390 / 1390 500 / 500 Weight 74.8 kg Intake: IV 1200 / 1200 1450 / 1450 500 / 500 NS Inj 1,000 ML @ 125 mls/hr IV 1000 / 1000 1000 / 1000 500 / 500 .CONT .Q8H [facility] Rx#:[id number] Azithromycin Inj 500 MG In NS 250 / 250 Inj 250 ML @ 250 mls/hr IV.SIG Q24H [facility] Rx#:[id number] Azactam Inj 2 GM In NS Inj 100 100 / 100 200 / 200 ML @ 200 mls/hr IV.SIG Q8H [facility] Rx#:[id number] Vancomycin Inj 500 MG In NS Inj 100 / 100 100 ML @ 200 mls/hr IV.SIG ONCE ONE Rx#:[id number] Oral 620 / 620 240 / 240 Output: Urine Amount (Catheter) 300 / 300 Indwelling Urethral Catheter 300 / 300 Other: # Voids 3 3 # Incontinent Voids 1 Date of Last Bowel Movement 05/19/18 # Bowel Movements 0 Narrative: Gen.: No acute distress Head: Normocephalic. Atraumatic. EENT: Pupils equal round and reactive to light. Nose without drainage. Airway intact. Throat without injection. Cardiovascular: Regular rate and rhythm. No murmurs, rubs or gallops. Respiratory: Diffuse wheezing. Poor air movement. Abdomen: Soft, nontender, nondistended. No peritoneal signs. Musculoskeletal: No gross deformities. No edema. Skin: No obvious rashes or erythema. Neuro: Sensory and motor grossly intact. Cranial nerves II through XII grossly intact. - Urinary Catheter Management Indwelling Urethral Catheter Cath placed during this visit: no Results - Labs CBC & Chem 7: 05/20/18 04:31 05/20/18 04:31 Laboratory Results - last 24 hr 05/19/18 05/19/18 05/19/18 10:38 12:49 19:54 WBC RBC Hgb Hct MCV MCH MCHC RDW Plt Count MPV Neut % (Auto) Lymph % (Auto) [place] % (Auto) Eos % (Auto) Baso % (Auto) Neut # (Auto) Lymph # (Auto) [place] # (Auto) Eos # (Auto) Baso # (Auto) WBC Differential Differential Comment Sodium 142 Potassium 4.2 Chloride 107 Carbon Dioxide 24.6 Anion Gap 10 BUN 38 H Creatinine 2.08 H Estimated GFR 23 L POC Glucose 446 H Random Glucose 389 H D Lactic Acid 2.3 H Calcium 7.5 L Prot Corrected Calcium Phosphorus Magnesium Total Protein Random Vancomycin 05/19/18 05/20/18 05/20/18 20:07 03:15 04:31 WBC RBC Hgb Hct MCV MCH MCHC RDW Plt Count MPV Neut % (Auto) Lymph % (Auto) [place] % (Auto) Eos % (Auto) Baso % (Auto) Neut # (Auto) Lymph # (Auto) [place] # (Auto) Eos # (Auto) Baso # (Auto) WBC Differential Differential Comment Sodium 147 H Potassium 4.4 Chloride 114 H Carbon Dioxide 26.2 Anion Gap 7 BUN 43 H Creatinine 1.37 H Estimated GFR 38 L POC Glucose 283 H 191 H Random Glucose 166 H D Lactic Acid Calcium 7.4 L* Prot Corrected Calcium 8.1 L Phosphorus 2.4 L Magnesium 2.0 Total Protein 5.9 L Random Vancomycin 11.7 05/20/18 05/20/18 04:31 08:07 WBC 22.4 H RBC 3.32 L Hgb 10.0 L Hct 31.7 L MCV 95.5 D MCH 30.0 MCHC 31.5 L RDW 17.3 H Plt Count 183 MPV 9.9 Neut % (Auto) 94.9 H Lymph % (Auto) 2.0 L [place] % (Auto) 2.9 Eos % (Auto) 0.0 Baso % (Auto) 0.2 Neut # (Auto) 21.2 H Lymph # (Auto) 0.4 L [place] # (Auto) 0.6 Eos # (Auto) 0.0 Baso # (Auto) 0.0 WBC Differential . Differential Comment Auto diff final Sodium Potassium Chloride Carbon Dioxide Anion Gap BUN Creatinine Estimated GFR POC Glucose 135 H Random Glucose Lactic Acid Calcium Prot Corrected Calcium Phosphorus Magnesium Total Protein Random Vancomycin Microbiology 05/18/18 19:39 Blood - Peripheral Aerobic Blood Culture - Preliminary No growth in 1 day 05/18/18 19:39 Blood - Peripheral Anaerobic Blood Culture - Preliminary No growth in 1 day 05/18/18 19:44 Blood - Peripheral Aerobic Blood Culture - Preliminary No growth in 1 day 05/18/18 19:44 Blood - Peripheral Anaerobic Blood Culture - Preliminary No growth in 1 day Assessment and Plan - Plan Shortness of breath/COPD exacerbation/healthcare associated pneumonia/sepsis Patient with leukocytosis, elevated lactic acid, tachycardia and hypoxia. Chest x-ray significant for left base consolidation. Pulmonology consult appreciated. -Vancomycin, aztreonam and azithromycin given penicillin allergy. -Continue home BiPAP, wean as tolerated. -Duo nebs. -IV fluids. -repeat CXR. -PT, incentive spirometry. -the pt is DNR. Consider hospice if no improvement. Aspiration Nursing concerned that the pt choked on her food 05/20. -NPO except for meds. -speech therapy eval. -antibiotics. Diabetes mellitus Glucose better controlled now that steroids have been d/c. -Sliding scale and long acting insulin BID. Adjust as needed. Hypertension/dementia/rheumatoid arthritis -Continue home medications. Acute kidney injury Creatinine 1.83, no recent baseline for comparison. Improved with IVFs. -Monitor renal function -IV fluid hydration PPx: Heparin Discharge Planning: Await clinical improvement
--- NOTE | 2018-05-20 11:08 | XR ---
EXAM DATE: 05/20/2018 10:22 AM EDT AGE/SEX: 73 years / Female INDICATIONS: Dyspnea. CLINICAL DATA: This is the patient's initial encounter. Patient reports that signs and symptoms have been present for 3 days and indicates a pain score of 0/10. MEDICAL/SURGICAL HISTORY: Chronic obstructive pulmonary disease. diabetes,hypertension,dementia None. COMPARISON: [facility] [place], CHEST 1V SINGLE AP, 05/18/2018. . FINDINGS: Bibasilar and right perihilar patchiness is noted consistent with probable pneumonia. Clinical correl ation is recommended. The heart is enlarged. CONCLUSION: 1. Bibasilar and right perihilar patchiness is noted consistent with probable pneumonia. Clinical co rrelation is recommended. 2. Cardiomegaly. Electronically signed by: Levy Escamilla MD 05/20/2018 11:07 AM EDT
--- NOTE | 2018-05-20 11:15 | US ---
EXAM DATE: 05/20/2018 12:00 AM EDT AGE/SEX: 73 years / Female INDICATIONS: Increased lab values. CLINICAL DATA: This is the patient's initial encounter. Patient reports that signs and symptoms have been present for 1 day and indicates a pain score of 0/10. MEDICAL/SURGICAL HISTORY: Chronic obstructive pulmonary disease. Diabetes. Hypertension. Dem entia. Rheumatoid arthritis. Cholecystectomy. Hip surgery. COMPARISON: No prior exams available for comparison. MEASUREMENTS: Right Kidney:__9.4 x 4.4 x 5.2 cm Left Kidney:__9.1 x 4.4 x 4.1 cm FINDINGS: Right Kidney: Increased echotexture. No mass or hydronephrosis. Left Kidney: Increased echotexture. No mass or hydronephrosis. Bladder: Decompressed. Not well evaluated. Other: None. CONCLUSION: 1. Small echogenic kidneys consistent with probable medical renal disease. Electronically signed by: Levy Escamilla MD 05/20/2018 11:13 AM EDT
[2018-05-20] MEDS ORDERED: Vancomycin Inj 1,250 MG in Sodium Chlor 0.9% Inj 250 ML IV.SIG ONE (12:00)
[2018-05-20] MEDS: Sodium Chloride 0.45 % Inj 1,000 ML IV.CONT SCH (12:52)
[2018-05-20] MEDS: Heparin - SQ 10,000 UNITS/ML Vial SQ SCH (12:53)
[2018-05-20 15:14] LABS: Bacteria,Urine Occasional /hpf; Bilirubin,Urine Negative (Negative); Clarity,Urine Hazy (Clear); Color,Urine Yellow (Yellw/Straw); Glucose,Urine (UA) Negative (Negative); Leukocyte Esterase,Urine Moderate (Negative); Nitrite,Urine Negative (Negative); Specific Gravity,Urine 1.017 (1.002-1.035); Squamous Epithelial Cell,Urine <1 /hpf (0-5)
[2018-05-20 15:56] LABS: Creatinine,Urine Random 95 mg/dL (27-300)
--- NOTE | 2018-05-20 17:41 | P.PN ---
Subjective Interval history: Feels better. Has no fever. Choked on some food today. Will have swallow study. O2 sat 97 on 5 L Still has a cough. WBC ic >22. Physical Exam Vital signs: Vital Signs 05/19/18 18:00 05/19/18 19:00 05/19/18 19:43 Temperature Pulse Rate 88 92 H 94 H Respiratory Rate 22 Blood Pressure Pulse Oximetry 05/19/18 19:46 05/19/18 20:00 05/19/18 21:00 Temperature 98.6 F Pulse Rate 94 H 110 H Respiratory Rate 20 Blood Pressure 118/62 Pulse Oximetry 99 100 05/19/18 22:00 05/19/18 23:00 05/20/18 00:00 Temperature 96.7 F L Pulse Rate 102 H 90 86 Respiratory Rate 16 Blood Pressure 124/73 Pulse Oximetry 100 05/20/18 00:10 05/20/18 04:00 05/20/18 04:51 Temperature 96.5 F L Pulse Rate 78 Respiratory Rate 16 Blood Pressure 115/60 Pulse Oximetry 100 100 94 L 05/20/18 07:00 05/20/18 07:40 05/20/18 07:52 Temperature Pulse Rate 77 Respiratory Rate Blood Pressure Pulse Oximetry 87 L 95 05/20/18 08:03 05/20/18 11:04 05/20/18 12:17 Temperature 98.1 F 97.8 F Pulse Rate 86 99 H Respiratory Rate 17 17 17 Blood Pressure 122/73 121/70 Pulse Oximetry 95 94 L 05/20/18 12:50 05/20/18 14:32 05/20/18 15:33 Temperature Pulse Rate 99 H 95 H Respiratory Rate 18 17 18 Blood Pressure Pulse Oximetry 95 05/20/18 16:00 05/20/18 16:12 Temperature 97.1 F L Pulse Rate 92 H 94 H Respiratory Rate 17 Blood Pressure 113/66 Pulse Oximetry 93 L Intake & Output 05/19/18 05/20/18 05/20/18 18:59 06:59 18:59 Intake Total 1820 / 1820 1690 / 1690 862.5 / 862.5 Output Total 300 / 300 Balance 1820 / 1820 1390 / 1390 862.5 / 862.5 Weight 74.8 kg Intake: IV 1200 / 1200 1450 / 1450 862.5 / 862.5 NS Inj 1,000 ML @ 125 mls/hr IV 1000 / 1000 1000 / 1000 500 / 500 .CONT .Q8H [facility] Rx#:[id number] Azithromycin Inj 500 MG In NS 250 / 250 Inj 250 ML @ 250 mls/hr IV.SIG Q24H [facility] Rx#:[id number] Azactam Inj 2 GM In NS Inj 100 100 / 100 200 / 200 100 / 100 ML @ 200 mls/hr IV.SIG Q8H [facility] Rx#:[id number] Vancomycin Inj 1,250 MG In NS 262.5 / 262.5 Inj 250 ML @ 250 mls/hr IV.SIG ONCE ONE Rx#:[id number] Vancomycin Inj 500 MG In NS Inj 100 / 100 100 ML @ 200 mls/hr IV.SIG ONCE ONE Rx#:[id number] Oral 620 / 620 240 / 240 Output: Urine Amount (Catheter) 300 / 300 Indwelling Urethral Catheter 300 / 300 Other: # Voids 3 3 # Incontinent Voids 1 Date of Last Bowel Movement 05/19/18 # Bowel Movements 0 Narrative: Gen.: Elderly W/F in No acute distress Head: Normocephalic. Atraumatic. EENT: Pupils equal round and reactive to light. Nose without drainage. Airway intact. Throat without injection. Cardiovascular: Regular rate and rhythm. No murmurs, rubs or gallops. Respiratory: Diffuse wheezing. Basal crackles. Poor air movement. Abdomen: Soft, nontender, nondistended. No peritoneal signs. Musculoskeletal: No gross deformities. Has healing abrasions over right arm and hand , and No edema. Skin: rash over arm. Neuro: Sensory and motor grossly intact. Cranial nerves II through XII grossly intact. - Urinary Catheter Management Indwelling Urethral Catheter Cath placed during this visit: yes Reason for continuing: Acute urinary retention Insertion date: 05/19/18 Results - Labs CBC & Chem 7: 05/20/18 04:31 05/20/18 04:31 Laboratory Results - last 24 hr 05/19/18 05/19/18 05/20/18 19:54 20:07 03:15 WBC RBC Hgb Hct MCV MCH MCHC RDW Plt Count MPV Neut % (Auto) Lymph % (Auto) [place] % (Auto) Eos % (Auto) Baso % (Auto) Neut # (Auto) Lymph # (Auto) [place] # (Auto) Eos # (Auto) Baso # (Auto) WBC Differential Differential Comment Sodium Potassium Chloride Carbon Dioxide Anion Gap BUN Creatinine Estimated GFR POC Glucose 283 H 191 H Random Glucose Lactic Acid 2.3 H Calcium Prot Corrected Calcium Phosphorus Magnesium Total Protein Urine Color Urine Clarity Urine pH Ur Specific [place] Urine Protein Urine Glucose (UA) Urine Ketones Urine Occult Blood Urine Nitrate Urine Bilirubin Urine Urobilinogen Ur Leukocyte Esterase Urine RBC Urine WBC Ur Squamous Epith Cells Urine Bacteria Micro UA Comment Ur Microscopic Review Urine Culture Comments Ur Random Creatinine Ur Random Sodium Random Vancomycin 05/20/18 05/20/18 05/20/18 04:31 04:31 08:07 WBC 22.4 H RBC 3.32 L Hgb 10.0 L Hct 31.7 L MCV 95.5 D MCH 30.0 MCHC 31.5 L RDW 17.3 H Plt Count 183 MPV 9.9 Neut % (Auto) 94.9 H Lymph % (Auto) 2.0 L [place] % (Auto) 2.9 Eos % (Auto) 0.0 Baso % (Auto) 0.2 Neut # (Auto) 21.2 H Lymph # (Auto) 0.4 L [place] # (Auto) 0.6 Eos # (Auto) 0.0 Baso # (Auto) 0.0 WBC Differential . Differential Comment Auto diff final Sodium 147 H Potassium 4.4 Chloride 114 H Carbon Dioxide 26.2 Anion Gap 7 BUN 43 H Creatinine 1.37 H Estimated GFR 38 L POC Glucose 135 H Random Glucose 166 H D Lactic Acid Calcium 7.4 L* Prot Corrected Calcium 8.1 L Phosphorus 2.4 L Magnesium 2.0 Total Protein 5.9 L Urine Color Urine Clarity Urine pH Ur Specific [place] Urine Protein Urine Glucose (UA) Urine Ketones Urine Occult Blood Urine Nitrate Urine Bilirubin Urine Urobilinogen Ur Leukocyte Esterase Urine RBC Urine WBC Ur Squamous Epith Cells Urine Bacteria Micro UA Comment Ur Microscopic Review Urine Culture Comments Ur Random Creatinine Ur Random Sodium Random Vancomycin 11.7 05/20/18 05/20/18 05/20/18 13:01 14:20 14:20 WBC RBC Hgb Hct MCV MCH MCHC RDW Plt Count MPV Neut % (Auto) Lymph % (Auto) [place] % (Auto) Eos % (Auto) Baso % (Auto) Neut # (Auto) Lymph # (Auto) [place] # (Auto) Eos # (Auto) Baso # (Auto) WBC Differential Differential Comment Sodium Potassium Chloride Carbon Dioxide Anion Gap BUN Creatinine Estimated GFR POC Glucose 187 H Random Glucose Lactic Acid Calcium Prot Corrected Calcium Phosphorus Magnesium Total Protein Urine Color Yellow Urine Clarity Hazy H Urine pH 5.0 Ur Specific [place] 1.017 Urine Protein 30 H Urine Glucose (UA) Negative Urine Ketones Negative Urine Occult Blood Moderate H Urine Nitrate Negative Urine Bilirubin Negative Urine Urobilinogen Less than 2 Ur Leukocyte Esterase Moderate H Urine RBC 34 H Urine WBC 33 H Ur Squamous Epith Cells <1 Urine Bacteria Occasional H Micro UA Comment Cath-culture ind Ur Microscopic Review Not Reportable Urine Culture Comments Cath-cult indicated Ur Random Creatinine 95 Ur Random Sodium 26 Random Vancomycin 05/20/18 16:22 WBC RBC Hgb Hct MCV MCH MCHC RDW Plt Count MPV Neut % (Auto) Lymph % (Auto) [place] % (Auto) Eos % (Auto) Baso % (Auto) Neut # (Auto) Lymph # (Auto) [place] # (Auto) Eos # (Auto) Baso # (Auto) WBC Differential Differential Comment Sodium Potassium Chloride Carbon Dioxide Anion Gap BUN Creatinine Estimated GFR POC Glucose 141 H Random Glucose Lactic Acid Calcium Prot Corrected Calcium Phosphorus Magnesium Total Protein Urine Color Urine Clarity Urine pH Ur Specific [place] Urine Protein Urine Glucose (UA) Urine Ketones Urine Occult Blood Urine Nitrate Urine Bilirubin Urine Urobilinogen Ur Leukocyte Esterase Urine RBC Urine WBC Ur Squamous Epith Cells Urine Bacteria Micro UA Comment Ur Microscopic Review Urine Culture Comments Ur Random Creatinine Ur Random Sodium Random Vancomycin Microbiology 05/18/18 19:39 Blood - Peripheral Aerobic Blood Culture - Preliminary No growth in 2 days 05/18/18 19:39 Blood - Peripheral Anaerobic Blood Culture - Preliminary No growth in 2 days 05/18/18 19:44 Blood - Peripheral Aerobic Blood Culture - Preliminary No growth in 2 days 05/18/18 19:44 Blood - Peripheral Anaerobic Blood Culture - Preliminary No growth in 2 days - Imaging Impressions Abdomen/Bladder Ultrasound 05/20/18 00:00 CONCLUSION: 1. Small echogenic kidneys consistent with probable medical renal disease. Chest X-Ray 05/20/18 10:22 CONCLUSION: 1. Bibasilar and right perihilar patchiness is noted consistent with probable pneumonia. Clinical correlation is recommended. 2. Cardiomegaly. Assessment and Plan - Assessment (1) Aspiration pneumonia Code(s): J69.0 - Pneumonitis due to inhalation of food and vomit Status: Acute (2) Dementia Code(s): F03.90 - Unspecified dementia without behavioral disturbance Status: Acute (3) Sepsis Code(s): A41.9 - Sepsis, unspecified organism Status: Acute (4) Respiratory failure Code(s): J96.90 - Respiratory failure, unspecified, unspecified whether with hypoxia or hypercapnia Status: Acute (5) COPD exacerbation Code(s): J44.1 - Chronic obstructive pulmonary disease with (acute) exacerbation Status: Acute (6) Pneumonia Code(s): J18.9 - Pneumonia, unspecified organism Status: Acute - Plan 1. Continue antibiotics Vanco/Azactam/Zithro 2. Duoneb nebs qid. 3. Wean O2 to 3 L N/C 4. Symbicort 160/4.5 mcg, 2puffs BID 5. CT chest and PFt in am 6. Add Solumedrol 40 mg BID X 2 days 7. CBC,BMP in am (4) Respiratory failure Qualifiers: Chronicity: acute Respiratory failure complication: hypoxia Qualified Code(s ): J96.01 - Acute respiratory failure with hypoxia (6) Pneumonia Qualifiers: Pneumonia type: due to unspecified organism Laterality: left Lung location: lower lobe of lung Qualified Code(s): J18.1 - Lobar pneumonia, unspecified organism
[2018-05-20] MEDS: Melatonin 5 MG Tablet PO SCH (22:24)
[2018-05-20] MEDS: Mirtazapine 15 MG Tablet PO SCH (22:24)
[2018-05-20] MEDS: Azithromycin Inj 500 MG in Sodium Chlor 0.9% Inj 250 ML IV.SIG SCH (22:25)
[2018-05-20] MEDS: MethylPREDNISolone Sod Succinate Inj 40 MG/ML Vial IV.PUSH SCH (22:27)
[2018-05-20] MEDS: clonazePAM 0.5 MG Tablet PO PRN (23:02)
[2018-05-21] MEDS: Insulin Detemir Inj 1,000 UNIT/10 ML Vial SQ SCH ×2 (03:03→09:27)
[2018-05-21] MEDS: Insulin NovoLOG Aspart Correctional Sugar Inj SQ SCH ×6 (03:03→21:02)
[2018-05-21] MEDS: Heparin - SQ 10,000 UNITS/ML Vial SQ SCH ×3 (03:04→23:10)
[2018-05-21] MEDS ORDERED: Atropine Inj 1 MG/10 ML Syringe ONE (04:25)
--- NOTE | 2018-05-21 06:01 | CT ---
EXAM DATE: 05/21/2018 4:41 AM EDT AGE/SEX: 73 years / Female INDICATIONS: Evaluate infiltrate. CLINICAL DATA: This is the patient's initial encounter. Patient reports that signs and symptoms have been present for 1 day and indicates a pain score of 5/10. MEDICAL/SURGICAL HISTORY: Diabetes mellitus type II. Chronic obstructive pulmonary disease. Demen tia. Cholecystectomy. RADIATION DOSE: 18.31 CTDI (mGy) COMPARISON: No prior exams available for comparison. TECHNIQUE: Multiple contiguous axial images were obtained through the chest without contrast. Image s were obtained in suspended respiration using multiple row detector helical technique. Using automa carmen exposure control and adjustment of the mA and/or kV according to patient size, radiation dose was kept as low as reasonably achievable to obtain optimal diagnostic quality images. DICOM format imag e data is available electronically for review and comparison. FINDINGS: There are centrilobular emphysematous changes in both upper lobes. There is bilateral lower lobe atel ectasis versus pneumonia right greater than left. Small bilateral pleural effusions are present right greater than left. Examination of the mediastinum demonstrates no abnormally enlarged lymph nodes by CT criteria. No axillary or hilar abnormalities are identified. Coronary artery calcifications are p resent. CONCLUSION: Bilateral lower lobe atelectasis versus pneumonia. Small bilateral effusions Electronically signed by: Sam Callejas MD 05/21/2018 6:00 AM EDT
[2018-05-21] MEDS: Sodium Chloride 0.45 % Inj 1,000 ML IV.CONT SCH (06:29)
[2018-05-21 07:17] LABS: Baso # (Auto) 0.1 th/mm3 (0.0-0.2); Baso % (Auto) 0.3 % (0.0-2.0); Hematocrit 32.3 % (35.0-46.0); Hemoglobin 10.3 gm/dL (11.6-15.3); Lymph # (Auto) 0.4 th/mm3 (1.0-4.8); Mean Corpuscular Hemoglobin 30.4 pg (27.0-34.0); Mean Corpuscular Volume 95.2 fL (80.0-100.0); Mean Platelet Volume 9.8 fL (7.0-11.0); Mono # (Auto) 0.4 th/mm3 (0.0-0.9); Mono % (Auto) 1.9 % (0.0-8.0); Neut # (Auto) 18.6 th/mm3 (1.8-7.7); Neut % (Auto) 95.8 % (16.0-70.0); Platelet Count 201 th/mm3 (150-450); Red Blood Count 3.39 mil/mm3 (4.00-5.30); Red Cell Distribution Width 17.4 % (11.6-17.2); White Blood Count 19.5 th/mm3 (4.0-11.0)
[2018-05-21 07:48] LABS: Calcium 7.5 mg/dL (8.5-10.1); Carbon Dioxide 22.8 meq/L (21.0-32.0); Potassium 4.9 meq/L (3.5-5.1)
[2018-05-21 07:50] LABS: Vancomycin,Random 17.5 Comment
[2018-05-21] MEDS: Sodium Chloride 0.9% 2 ML Flush BID IV.FLUSH SCH ×2 (09:22→20:55)
[2018-05-21] MEDS: amLODIPine 10 MG Tablet PO SCH (09:23)
[2018-05-21] MEDS: Sertraline 100 MG Tablet PO SCH (09:23)
[2018-05-21] MEDS: Lisinopril 10 MG Tablet PO SCH (09:26)
[2018-05-21] MEDS: Senna/Docusate Sodium 8.6/50 MG Tablet PO SCH ×2 (09:30→21:03)
[2018-05-21] MEDS: MethylPREDNISolone Sod Succinate Inj 40 MG/ML Vial IV.PUSH SCH ×2 (09:30→20:56)
[2018-05-21] MEDS: Aztreonam Inj 2 GM in Sodium Chloride 0.9% Inj 100 ML IV.SIG SCH ×5 (09:39→23:08)
--- NOTE | 2018-05-21 11:35 | P.PNIM ---
Subjective Interval history: The patient was resting in bed. She said she was tired. She denied any acute complaints. She said the arm rests on the bed were irritating. Physical Exam Vital signs: Vital Signs 05/20/18 12:17 05/20/18 12:50 05/20/18 14:32 Temperature 97.8 F Pulse Rate 99 H 99 H Respiratory Rate 17 18 17 Blood Pressure 121/70 Pulse Oximetry 94 L 95 05/20/18 15:33 05/20/18 16:00 05/20/18 16:12 Temperature 97.1 F L Pulse Rate 95 H 92 H 94 H Respiratory Rate 18 17 Blood Pressure 113/66 Pulse Oximetry 93 L 05/20/18 19:00 05/20/18 20:00 05/20/18 22:36 Temperature 98.3 F Pulse Rate 82 100 H Respiratory Rate 20 17 16 Blood Pressure 102/58 L Pulse Oximetry 96 98 05/21/18 00:00 05/21/18 04:00 05/21/18 08:00 Temperature 98.3 F 98.2 F 97.4 F L Pulse Rate 97 H 87 96 H Respiratory Rate 17 16 16 Blood Pressure 111/56 L 118/71 135/63 Pulse Oximetry 98 100 96 05/21/18 08:11 Temperature Pulse Rate 80 Respiratory Rate 18 Blood Pressure Pulse Oximetry 94 L Intake & Output 05/20/18 05/21/18 05/21/18 18:59 06:59 18:59 Intake Total 1442.5 / 1442.5 2030 / 2030 818 / 818 Output Total 450 / 450 950 / 950 Balance 992.5 / 992.5 1080 / 1080 818 / 818 Weight 75.8 kg Intake: IV 962.5 / 962.5 1350 / 1350 818 / 818 NS Inj 1,000 ML @ 125 mls/hr IV 500 / 500 .CONT .Q8H [facility] Rx#:[id number] 1/2 Normal Saline Inj 1,000 ML 1000 / 1000 818 / 818 @ 50 mls/hr IV.CONT .Q20H [facility] Rx#:[id number] Azithromycin Inj 500 MG In NS 250 / 250 Inj 250 ML @ 250 mls/hr IV.SIG Q24H [facility] Rx#:[id number] Azactam Inj 2 GM In NS Inj 100 200 / 200 100 / 100 ML @ 200 mls/hr IV.SIG Q8H [facility] Rx#:[id number] Vancomycin Inj 1,250 MG In NS 262.5 / 262.5 Inj 250 ML @ 250 mls/hr IV.SIG ONCE ONE Rx#:[id number] Oral 480 / 480 680 / 680 Output: Urine Amount (Catheter) 450 / 450 950 / 950 Indwelling Urethral Catheter 450 / 450 950 / 950 Other: Date of Last Bowel Movement 05/19/18 05/19/18 05/19/18 Narrative: Gen.: No acute distress Head: Normocephalic. Atraumatic. EENT: Pupils equal round and reactive to light. Nose without drainage. Airway intact. Throat without injection. Cardiovascular: Regular rate and rhythm. No murmurs, rubs or gallops. Respiratory: Diffuse wheezing. Poor air movement. Abdomen: Soft, nontender, nondistended. No peritoneal signs. Musculoskeletal: No gross deformities. 1-2+ edema. Neuro: Sensory and motor grossly intact. Cranial nerves II through XII grossly intact. - Urinary Catheter Management Indwelling Urethral Catheter Cath placed during this visit: yes Reason for continuing: Hourly intake/output Insertion date: 05/19/18 Results - Labs CBC & Chem 7: 05/21/18 06:50 05/21/18 06:50 Laboratory Results - last 24 hr 05/20/18 05/20/18 05/20/18 13:01 14:20 14:20 WBC RBC Hgb Hct MCV MCH MCHC RDW Plt Count MPV Neut % (Auto) Lymph % (Auto) [place] % (Auto) Eos % (Auto) Baso % (Auto) Neut # (Auto) Lymph # (Auto) [place] # (Auto) Eos # (Auto) Baso # (Auto) WBC Differential Differential Comment Sodium Potassium Chloride Carbon Dioxide Anion Gap BUN Creatinine Estimated GFR POC Glucose 187 H Random Glucose Calcium Urine Color Yellow Urine Clarity Hazy H Urine pH 5.0 Ur Specific [place] 1.017 Urine Protein 30 H Urine Glucose (UA) Negative Urine Ketones Negative Urine Occult Blood Moderate H Urine Nitrate Negative Urine Bilirubin Negative Urine Urobilinogen Less than 2 Ur Leukocyte Esterase Moderate H Urine RBC 34 H Urine WBC 33 H Ur Squamous Epith Cells <1 Urine Bacteria Occasional H Micro UA Comment Cath-culture ind Ur Microscopic Review Not Reportable Urine Culture Comments Cath-cult indicated Ur Random Creatinine 95 Ur Random Sodium 26 Random Vancomycin 05/20/18 05/20/18 05/21/18 16:22 22:41 03:09 WBC RBC Hgb Hct MCV MCH MCHC RDW Plt Count MPV Neut % (Auto) Lymph % (Auto) [place] % (Auto) Eos % (Auto) Baso % (Auto) Neut # (Auto) Lymph # (Auto) [place] # (Auto) Eos # (Auto) Baso # (Auto) WBC Differential Differential Comment Sodium Potassium Chloride Carbon Dioxide Anion Gap BUN Creatinine Estimated GFR POC Glucose 141 H 77 160 H Random Glucose Calcium Urine Color Urine Clarity Urine pH Ur Specific [place] Urine Protein Urine Glucose (UA) Urine Ketones Urine Occult Blood Urine Nitrate Urine Bilirubin Urine Urobilinogen Ur Leukocyte Esterase Urine RBC Urine WBC Ur Squamous Epith Cells Urine Bacteria Micro UA Comment Ur Microscopic Review Urine Culture Comments Ur Random Creatinine Ur Random Sodium Random Vancomycin 05/21/18 05/21/18 05/21/18 06:50 06:50 08:13 WBC 19.5 H RBC 3.39 L Hgb 10.3 L Hct 32.3 L MCV 95.2 MCH 30.4 MCHC 32.0 RDW 17.4 H Plt Count 201 MPV 9.8 Neut % (Auto) 95.8 H Lymph % (Auto) 2.0 L [place] % (Auto) 1.9 Eos % (Auto) 0.0 Baso % (Auto) 0.3 Neut # (Auto) 18.6 H Lymph # (Auto) 0.4 L [place] # (Auto) 0.4 Eos # (Auto) 0.0 Baso # (Auto) 0.1 WBC Differential . Differential Comment Auto diff final Sodium 142 Potassium 4.9 Chloride 111 H Carbon Dioxide 22.8 Anion Gap 8 BUN 37 H Creatinine 1.14 H Estimated GFR 46 L POC Glucose 170 H Random Glucose 167 H Calcium 7.5 L Urine Color Urine Clarity Urine pH Ur Specific [place] Urine Protein Urine Glucose (UA) Urine Ketones Urine Occult Blood Urine Nitrate Urine Bilirubin Urine Urobilinogen Ur Leukocyte Esterase Urine RBC Urine WBC Ur Squamous Epith Cells Urine Bacteria Micro UA Comment Ur Microscopic Review Urine Culture Comments Ur Random Creatinine Ur Random Sodium Random Vancomycin 17.5 05/21/18 09:21 WBC RBC Hgb Hct MCV MCH MCHC RDW Plt Count MPV Neut % (Auto) Lymph % (Auto) [place] % (Auto) Eos % (Auto) Baso % (Auto) Neut # (Auto) Lymph # (Auto) [place] # (Auto) Eos # (Auto) Baso # (Auto) WBC Differential Differential Comment Sodium Potassium Chloride Carbon Dioxide Anion Gap BUN Creatinine Estimated GFR POC Glucose 188 H Random Glucose Calcium Urine Color Urine Clarity Urine pH Ur Specific [place] Urine Protein Urine Glucose (UA) Urine Ketones Urine Occult Blood Urine Nitrate Urine Bilirubin Urine Urobilinogen Ur Leukocyte Esterase Urine RBC Urine WBC Ur Squamous Epith Cells Urine Bacteria Micro UA Comment Ur Microscopic Review Urine Culture Comments Ur Random Creatinine Ur Random Sodium Random Vancomycin Microbiology 05/18/18 19:39 Blood - Peripheral Aerobic Blood Culture - Preliminary No growth in 3 days 05/18/18 19:39 Blood - Peripheral Anaerobic Blood Culture - Preliminary No growth in 3 days 05/18/18 19:44 Blood - Peripheral Aerobic Blood Culture - Preliminary No growth in 3 days 05/18/18 19:44 Blood - Peripheral Anaerobic Blood Culture - Preliminary No growth in 3 days - Imaging Impressions Chest CT 05/21/18 00:00 CONCLUSION: Bilateral lower lobe atelectasis versus pneumonia. Small bilateral effusions Assessment and Plan - Plan Shortness of breath/COPD exacerbation/healthcare associated pneumonia/sepsis Patient with leukocytosis, elevated lactic acid, tachycardia and hypoxia. Chest x-ray significant for left base consolidation. Pulmonology consult appreciated. CT showed lower lobe atx vs consolidation and effusions. -Vancomycin, aztreonam and azithromycin given penicillin allergy. -Continue home BiPAP, wean as tolerated. -Duo nebs. -d/c IV fluids. -PT, incentive spirometry. -the pt is DNR. Consider hospice if no improvement. Aspiration Nursing concerned that the pt choked on her food 05/20. -diet per speech therapy. -antibiotics. Diabetes mellitus Glucose better controlled now that steroids have been d/c. -Sliding scale and long acting insulin BID. Adjust as needed. Edema S/t IVFs. -d/c IVFs. -Lasix 20 mg IV x 1 and monitor. Acute kidney injury Creatinine 1.83, no recent baseline for comparison. Improved with IVFs. -Monitor renal function off of fluids. -avoid nephrotoxins. PPx: Heparin Discharge Planning: Await clinical improvement
[2018-05-21] MEDS: Vancomycin Inj 1,250 MG in Sodium Chlor 0.9% Inj 250 ML IV.SIG SCH (16:05)
--- NOTE | 2018-05-21 16:47 | XR ---
EXAM DATE: 05/21/2018 4:01 PM EDT AGE/SEX: 73 years / Female INDICATIONS: Dyspnea. CLINICAL DATA: This is the patient's subsequent encounter. Patient reports that signs and symptoms h ave been present for 4 - 6 days and indicates a pain score of 0/10. MEDICAL/SURGICAL HISTORY: . Chronic obstructive pulmonary disease. diabetes,hypertension,nelida ia None. COMPARISON: [facility], CHEST 1V SINGLE AP, 05/20/2018. . FINDINGS: Interstitial prominence mainly in the lower lung zones. Streaky alveolar opacity in the bases. Cardia c contours are unchanged. CONCLUSION: No significant interval change Electronically signed by: Kyler Blood MD 05/21/2018 4:46 PM EDT
[2018-05-21] MEDS: Mirtazapine 15 MG Tablet PO SCH (20:54)
[2018-05-21] MEDS: Melatonin 5 MG Tablet PO SCH (20:54)
[2018-05-21] MEDS: Azithromycin Inj 500 MG in Sodium Chlor 0.9% Inj 250 ML IV.SIG SCH (21:00)
[2018-05-22] MEDS: Insulin NovoLOG Aspart Correctional Sugar Inj SQ SCH ×5 (04:23→20:47)
[2018-05-22] MEDS: Aztreonam Inj 2 GM in Sodium Chloride 0.9% Inj 100 ML IV.SIG SCH ×3 (09:14→23:10)
[2018-05-22] MEDS: Senna/Docusate Sodium 8.6/50 MG Tablet PO SCH ×2 (09:17→21:44)
[2018-05-22] MEDS: MethylPREDNISolone Sod Succinate Inj 40 MG/ML Vial IV.PUSH SCH (09:17)
[2018-05-22] MEDS: Insulin Detemir Inj 1,000 UNIT/10 ML Vial SQ SCH (09:18)
[2018-05-22] MEDS: amLODIPine 10 MG Tablet PO SCH (09:18)
[2018-05-22] MEDS: Sertraline 100 MG Tablet PO SCH (09:18)
[2018-05-22] MEDS: Lisinopril 10 MG Tablet PO SCH (09:21)
[2018-05-22] MEDS: Sodium Chloride 0.9% 2 ML Flush BID IV.FLUSH SCH ×2 (09:22→20:58)
--- NOTE | 2018-05-22 11:25 | P.PNIM ---
Subjective Interval history: The patient stated that her breathing was about the same. She denied any pain. Discussed with nursing, who reported that the patient desaturates with movement. Physical Exam Vital signs: Vital Signs 05/21/18 11:30 05/21/18 13:00 05/21/18 13:01 Temperature 97.8 F Pulse Rate 86 114 H 82 Respiratory Rate 16 16 Blood Pressure 117/67 Pulse Oximetry 91 L 05/21/18 14:00 05/21/18 15:00 05/21/18 16:00 Temperature 98.1 F Pulse Rate 105 H 105 H 105 H Respiratory Rate 24 Blood Pressure 145/54 H Pulse Oximetry 81 L 05/21/18 16:07 05/21/18 19:00 05/21/18 19:16 Temperature Pulse Rate 107 H 100 H Respiratory Rate 16 Blood Pressure Pulse Oximetry 92 L 05/21/18 20:00 05/21/18 21:00 05/21/18 22:00 Temperature 98.3 F Pulse Rate 100 H 106 H 106 H Respiratory Rate 20 Blood Pressure 139/76 Pulse Oximetry 95 05/21/18 23:00 05/21/18 23:35 05/22/18 00:00 Temperature Pulse Rate 98 H 94 H Respiratory Rate 20 Blood Pressure 122/74 Pulse Oximetry 92 L 94 L 05/22/18 01:00 05/22/18 02:00 05/22/18 03:00 Temperature Pulse Rate 94 H 90 83 Respiratory Rate Blood Pressure Pulse Oximetry 05/22/18 04:00 05/22/18 05:00 05/22/18 06:00 Temperature Pulse Rate 90 80 82 Respiratory Rate 18 Blood Pressure 126/76 Pulse Oximetry 100 05/22/18 07:00 05/22/18 07:32 05/22/18 07:40 Temperature Pulse Rate 96 H 97 H Respiratory Rate 18 Blood Pressure Pulse Oximetry 98 96 05/22/18 08:00 05/22/18 09:00 05/22/18 10:00 Temperature 98.8 F Pulse Rate 80 102 H 101 H Respiratory Rate 16 Blood Pressure 142/79 H Pulse Oximetry 98 Intake & Output 05/21/18 05/22/18 05/22/18 18:59 06:59 18:59 Intake Total 1967 / 1967 1012 / 1012 Output Total 1450 / 1450 1200 / 1200 Balance 518 / 518 -188 / -188 Weight 75.8 kg Intake: IV 1268 / 1268 532 / 532 1/2 Normal Saline Inj 1,000 ML 818 / 818 @ 50 mls/hr IV.CONT .Q20H [facility] Rx#:[id number] Azithromycin Inj 500 MG In NS 250 / 250 Inj 250 ML @ 250 mls/hr IV.SIG Q24H [facility] Rx#:[id number] Azactam Inj 2 GM In NS Inj 100 200 / 200 100 / 100 ML @ 200 mls/hr IV.SIG Q8H [facility] Rx#:[id number] Vancomycin Inj 1,250 MG In NS 250 / 250 Inj 250 ML @ 250 mls/hr IV.SIG Q24H [facility] Rx#:[id number] Oral 700 / 700 480 / 480 Output: Urine Amount (Catheter) 1450 / 1450 1200 / 1200 Indwelling Urethral Catheter 1450 / 1450 1200 / 1200 Other: Date of Last Bowel Movement 05/19/18 05/19/18 05/19/18 # Bowel Movements 0 0 Narrative: Gen.: No acute distress Head: Normocephalic. Atraumatic. EENT: Pupils equal round and reactive to light. Nose without drainage. Airway intact. Throat without injection. Cardiovascular: Regular rate and rhythm. No murmurs, rubs or gallops. Respiratory: Mild crackles. Poor air movement. Abdomen: Soft, nontender, nondistended. No peritoneal signs. Musculoskeletal: No gross deformities. 1-2+ edema. Neuro: Sensory and motor grossly intact. Cranial nerves II through XII grossly intact. - Urinary Catheter Management Indwelling Urethral Catheter Cath placed during this visit: yes Reason for continuing: Hourly intake/output Insertion date: 05/19/18 Results - Labs CBC & Chem 7: 05/21/18 06:50 05/21/18 06:50 Laboratory Results - last 24 hr 05/21/18 05/21/18 05/21/18 12:38 17:08 20:30 POC Glucose 224 H 168 H 202 H 05/22/18 05/22/18 03:53 07:43 POC Glucose 147 H 130 H Microbiology 05/18/18 19:39 Blood - Peripheral Aerobic Blood Culture - Preliminary No growth in 4 days 05/18/18 19:39 Blood - Peripheral Anaerobic Blood Culture - Preliminary No growth in 4 days 05/18/18 19:44 Blood - Peripheral Aerobic Blood Culture - Preliminary No growth in 4 days 05/18/18 19:44 Blood - Peripheral Anaerobic Blood Culture - Preliminary No growth in 4 days 05/20/18 14:20 Catheterized Urine Urine Culture - Preliminary No growth in 24 hours - Imaging Impressions Chest X-Ray 05/21/18 16:01 CONCLUSION: No significant interval change Assessment and Plan - Plan Shortness of breath/COPD exacerbation/healthcare associated pneumonia/sepsis Patient with leukocytosis, elevated lactic acid, tachycardia and hypoxia. Chest x-ray significant for left base consolidation. Pulmonology consult appreciated. CT showed lower lobe atx vs consolidation and effusions. Still desaturating with minimal exertion. -Vancomycin, aztreonam and azithromycin given penicillin allergy. -Continue BiPAP, wean as tolerated. -Duonebs. -d/c IV fluids. Start IV Lasix. -PT daily, incentive spirometry. -pulmonology following. -the pt is DNR. Consider hospice if no improvement. Aspiration Nursing concerned that the pt choked on her food 05/20. -diet per speech therapy. -antibiotics as above. Diabetes mellitus Glucose better controlled now that steroids have been d/c. -Sliding scale and long acting insulin BID. Adjust as needed. Edema S/t IVFs. -d/c IVFs. -Lasix 20 mg IV BID. Acute kidney injury Creatinine 1.83, no recent baseline for comparison. Improved with IVFs. -Monitor renal function while diuresing. -avoid nephrotoxins. PPx: Heparin Discharge Planning: Await clinical improvement
[2018-05-22] MEDS: Heparin - SQ 10,000 UNITS/ML Vial SQ SCH ×2 (11:49→23:12)
[2018-05-22 13:02] LABS: Hematocrit 32.5 % (35.0-46.0); Hemoglobin 10.4 gm/dL (11.6-15.3); Mean Corpuscular HGB Conc 32.1 % (32.0-36.0); Mean Corpuscular Hemoglobin 30.6 pg (27.0-34.0); Mean Corpuscular Volume 95.3 fL (80.0-100.0); Mean Platelet Volume 9.9 fL (7.0-11.0); Platelet Count 232 th/mm3 (150-450); Red Blood Count 3.41 mil/mm3 (4.00-5.30); Red Cell Distribution Width 17.3 % (11.6-17.2); White Blood Count 16.8 th/mm3 (4.0-11.0)
[2018-05-22 13:25] LABS: Calcium 7.9 mg/dL (8.5-10.1); Carbon Dioxide 26.2 meq/L (21.0-32.0); Magnesium 1.9 mg/dL (1.5-2.5); Phosphorus 2.9 mg/dL (2.5-4.9)
[2018-05-22 13:27] LABS: Potassium 5.6 meq/L (3.5-5.1)
[2018-05-22] MEDS ORDERED: Pharmacy Ordered Lab Info OTHER ONE (14:25)
[2018-05-22] MEDS: Vancomycin Inj 1,250 MG in Sodium Chlor 0.9% Inj 250 ML IV.SIG SCH (16:54)
[2018-05-22] MEDS: Melatonin 5 MG Tablet PO SCH (20:57)
[2018-05-22] MEDS: Mirtazapine 15 MG Tablet PO SCH (20:58)
[2018-05-22] MEDS: Azithromycin Inj 500 MG in Sodium Chlor 0.9% Inj 250 ML IV.SIG SCH (21:01)
[2018-05-23] MEDS: Insulin NovoLOG Aspart Correctional Sugar Inj SQ SCH ×4 (03:52→17:41)
[2018-05-23 07:08] LABS: Baso # (Auto) 0.1 th/mm3 (0.0-0.2); Baso % (Auto) 0.3 % (0.0-2.0); Eos # (Auto) 0.1 th/mm3 (0.0-0.4); Eos % (Auto) 0.3 % (0.0-4.0); Hematocrit 34.2 % (35.0-46.0); Lymph # (Auto) 1.3 th/mm3 (1.0-4.8); Lymph % (Auto) 7.3 % (9.0-44.0); Mean Corpuscular HGB Conc 32.1 % (32.0-36.0); Mean Corpuscular Hemoglobin 30.2 pg (27.0-34.0); Mean Corpuscular Volume 94.3 fL (80.0-100.0); Mean Platelet Volume 9.2 fL (7.0-11.0); Mono % (Auto) 5.4 % (0.0-8.0); Neut # (Auto) 15.7 th/mm3 (1.8-7.7); Neut % (Auto) 86.7 % (16.0-70.0); Platelet Count 253 th/mm3 (150-450); Red Blood Count 3.63 mil/mm3 (4.00-5.30); Red Cell Distribution Width 17.4 % (11.6-17.2); White Blood Count 18.1 th/mm3 (4.0-11.0)
[2018-05-23 07:39] LABS: Calcium 8.6 mg/dL (8.5-10.1); Carbon Dioxide 27.6 meq/L (21.0-32.0); Potassium 4.5 meq/L (3.5-5.1)
[2018-05-23 08:29] LABS: Lymphocytes 4 % (9-44); Monocytes 6 % (0-8); Myelocytes 3 % (0-0); Platelet Estimate Normal (Normal); Platelet Morphology Normal (Normal); RBC Morphology Normal (Normal); Tallied Nucleated RBC 1 (0-0)
[2018-05-23] MEDS: Sertraline 100 MG Tablet PO SCH (08:58)
[2018-05-23] MEDS: Lisinopril 10 MG Tablet PO SCH (08:59)
[2018-05-23] MEDS: amLODIPine 10 MG Tablet PO SCH (09:00)
[2018-05-23] MEDS ORDERED: MethylPREDNISolone Sod Succinate Inj 40 MG/ML Vial IV.PUSH SCH (09:00)
[2018-05-23] MEDS ORDERED: Insulin Detemir Inj 1,000 UNIT/10 ML Vial SQ SCH (09:00)
[2018-05-23] MEDS: Aztreonam Inj 2 GM in Sodium Chloride 0.9% Inj 100 ML IV.SIG SCH (10:21)
[2018-05-23] MEDS: Senna/Docusate Sodium 8.6/50 MG Tablet PO SCH ×2 (10:22→21:40)
[2018-05-23] MEDS: Heparin - SQ 10,000 UNITS/ML Vial SQ SCH (10:22)
[2018-05-23] MEDS: Sodium Chloride 0.9% 2 ML Flush BID IV.FLUSH SCH ×2 (10:23→21:40)
--- NOTE | 2018-05-23 13:13 | P.PNIM ---
Subjective Interval history: The patient feels constipated. She continues to have shortness of breath. She has not been eating much. Discussed with nursing at the bedside. Physical Exam Vital signs: Vital Signs 05/22/18 14:00 05/22/18 15:00 05/22/18 16:00 Temperature 98.3 F Pulse Rate 101 H 100 H 97 H Respiratory Rate 16 Blood Pressure 127/64 Pulse Oximetry 99 05/22/18 17:00 05/22/18 18:00 05/22/18 19:00 Temperature Pulse Rate 99 H 101 H 99 H Respiratory Rate Blood Pressure Pulse Oximetry 05/22/18 19:45 05/22/18 20:00 05/22/18 21:00 Temperature 98.5 F Pulse Rate 100 H 102 H Respiratory Rate 20 Blood Pressure 135/71 Pulse Oximetry 97 98 05/22/18 22:00 05/22/18 23:00 05/22/18 23:39 Temperature Pulse Rate 100 H 97 H 97 H Respiratory Rate 18 Blood Pressure 135/80 Pulse Oximetry 99 05/23/18 00:00 05/23/18 01:00 05/23/18 02:00 Temperature Pulse Rate 94 H 92 H 88 Respiratory Rate Blood Pressure Pulse Oximetry 05/23/18 03:00 05/23/18 03:54 05/23/18 04:00 Temperature Pulse Rate 86 85 90 Respiratory Rate 20 Blood Pressure 139/76 Pulse Oximetry 100 05/23/18 05:00 05/23/18 06:00 05/23/18 07:00 Temperature Pulse Rate 90 92 H 86 Respiratory Rate Blood Pressure Pulse Oximetry 05/23/18 08:00 05/23/18 09:04 05/23/18 12:00 Temperature 98.0 F 98.4 F Pulse Rate 104 H 108 H 113 H Respiratory Rate 20 15 18 Blood Pressure 156/91 H 160/102 H Pulse Oximetry 90 L 90 L 100 Intake & Output 05/22/18 05/23/18 05/23/18 18:59 06:59 18:59 Intake Total 1072.5 / 1072.5 690 / 690 Output Total 1700 / 1700 800 / 800 Balance -627.5 / -627.5 -110 / -110 Weight 76 kg Intake: IV 372.5 / 372.5 450 / 450 Azithromycin Inj 500 MG In NS 250 / 250 Inj 250 ML @ 250 mls/hr IV.SIG Q24H [facility] Rx#:[id number] Azactam Inj 2 GM In NS Inj 100 100 / 100 200 / 200 ML @ 200 mls/hr IV.SIG Q8H [facility] Rx#:[id number] Vancomycin Inj 1,250 MG In NS 272.5 / 272.5 Inj 250 ML @ 250 mls/hr IV.SIG Q24H [facility] Rx#:[id number] Oral 700 / 700 240 / 240 Output: Urine Amount (Catheter) 1700 / 1700 800 / 800 Indwelling Urethral Catheter 1700 / 1700 800 / 800 Other: Date of Last Bowel Movement 05/19/18 05/19/18 05/21/18 # Bowel Movements 0 # Incontinent Bowel Movements 0 Narrative: Gen.: No acute distress Head: Normocephalic. Atraumatic. EENT: Pupils equal round and reactive to light. Nose without drainage. Airway intact. Throat without injection. Cardiovascular: Regular rate and rhythm. No murmurs, rubs or gallops. Respiratory: Poor air movement. CTAB. Abdomen: Soft, nontender, nondistended. No peritoneal signs. Musculoskeletal: No gross deformities. 2+ edema. Neuro: Sensory and motor grossly intact. Cranial nerves II through XII grossly intact. - Urinary Catheter Management Indwelling Urethral Catheter Cath placed during this visit: yes Reason for continuing: Hourly intake/output Insertion date: 05/19/18 Results - Labs CBC & Chem 7: 05/23/18 05:52 05/23/18 05:52 Laboratory Results - last 24 hr 05/22/18 05/22/18 05/22/18 12:20 16:12 16:57 WBC RBC Hgb Hct MCV MCH MCHC RDW Plt Count MPV Prelim Diff (Auto) Neut % (Auto) Lymph % (Auto) [place] % (Auto) Eos % (Auto) Baso % (Auto) Neut # (Auto) Lymph # (Auto) [place] # (Auto) Eos # (Auto) Baso # (Auto) WBC Differential Seg Neuts % (Manual) Band Neuts % (Manual) Lymphocytes % (Manual) Monocytes % (Manual) Myelocytes % (Man) Abs Neuts (Manual) Nucleated RBCs/100 WBC Differential Comment Platelet Estimate Platelet Morphology RBC Morphology Sodium 140 Potassium 5.6 H Chloride 108 H Carbon Dioxide 26.2 Anion Gap 6 BUN 34 H Creatinine 1.04 H Estimated GFR 52 L POC Glucose 177 H Random Glucose 220 H Calcium 7.9 L Phosphorus 2.9 Magnesium 1.9 Vancomycin Trough 17.4 H 05/22/18 05/23/18 05/23/18 20:41 03:34 05:52 WBC RBC Hgb Hct MCV MCH MCHC RDW Plt Count MPV Prelim Diff (Auto) Neut % (Auto) Lymph % (Auto) [place] % (Auto) Eos % (Auto) Baso % (Auto) Neut # (Auto) Lymph # (Auto) [place] # (Auto) Eos # (Auto) Baso # (Auto) WBC Differential Seg Neuts % (Manual) Band Neuts % (Manual) Lymphocytes % (Manual) Monocytes % (Manual) Myelocytes % (Man) Abs Neuts (Manual) Nucleated RBCs/100 WBC Differential Comment Platelet Estimate Platelet Morphology RBC Morphology Sodium 144 Potassium 4.5 D Chloride 108 H Carbon Dioxide 27.6 Anion Gap 8 BUN 38 H Creatinine 1.08 H Estimated GFR 49 L POC Glucose 157 H 100 Random Glucose 40 L* D Calcium 8.6 Phosphorus Magnesium Vancomycin Trough 05/23/18 05/23/18 05/23/18 05:52 08:35 09:48 WBC 18.1 H RBC 3.63 L Hgb 11.0 L Hct 34.2 L MCV 94.3 MCH 30.2 MCHC 32.1 RDW 17.4 H Plt Count 253 MPV 9.2 Prelim Diff (Auto) Slide review pending Neut % (Auto) 86.7 H Lymph % (Auto) 7.3 L [place] % (Auto) 5.4 Eos % (Auto) 0.3 Baso % (Auto) 0.3 Neut # (Auto) 15.7 H Lymph # (Auto) 1.3 [place] # (Auto) 1.0 H Eos # (Auto) 0.1 Baso # (Auto) 0.1 WBC Differential Manual diff final Seg Neuts % (Manual) 77 H Band Neuts % (Manual) 10 H Lymphocytes % (Manual) 4 L Monocytes % (Manual) 6 Myelocytes % (Man) 3 H Abs Neuts (Manual) 16.3 H Nucleated RBCs/100 WBC 1 H Differential Comment . Platelet Estimate Normal Platelet Morphology Normal RBC Morphology Normal Sodium Potassium Chloride Carbon Dioxide Anion Gap BUN Creatinine Estimated GFR POC Glucose 46 L* 137 H Random Glucose Calcium Phosphorus Magnesium Vancomycin Trough 05/23/18 11:59 WBC RBC Hgb Hct MCV MCH MCHC RDW Plt Count MPV Prelim Diff (Auto) Neut % (Auto) Lymph % (Auto) [place] % (Auto) Eos % (Auto) Baso % (Auto) Neut # (Auto) Lymph # (Auto) [place] # (Auto) Eos # (Auto) Baso # (Auto) WBC Differential Seg Neuts % (Manual) Band Neuts % (Manual) Lymphocytes % (Manual) Monocytes % (Manual) Myelocytes % (Man) Abs Neuts (Manual) Nucleated RBCs/100 WBC Differential Comment Platelet Estimate Platelet Morphology RBC Morphology Sodium Potassium Chloride Carbon Dioxide Anion Gap BUN Creatinine Estimated GFR POC Glucose 113 H Random Glucose Calcium Phosphorus Magnesium Vancomycin Trough Microbiology 05/18/18 19:39 Blood - Peripheral Aerobic Blood Culture - Final No growth in 5 days 05/18/18 19:39 Blood - Peripheral Anaerobic Blood Culture - Final No growth in 5 days 05/18/18 19:44 Blood - Peripheral Aerobic Blood Culture - Final No growth in 5 days 05/18/18 19:44 Blood - Peripheral Anaerobic Blood Culture - Final No growth in 5 days 05/20/18 14:20 Catheterized Urine Urine Culture - Final No growth in 48 hours Assessment and Plan - Plan Shortness of breath/COPD exacerbation/healthcare associated pneumonia/sepsis Patient with leukocytosis, elevated lactic acid, tachycardia and hypoxia. Chest x-ray significant for left base consolidation. Pulmonology consult appreciated. CT showed lower lobe atx vs consolidation and effusions. Still desaturating with minimal exertion. -Vancomycin, aztreonam and azithromycin given penicillin allergy. -Continue BiPAP, wean as tolerated. -Duonebs standing and as needed. -IV Lasix. -PT daily, incentive spirometry. -pulmonology following. -repeat CXR and ABG 05/23. -the pt is DNR. Consider hospice if no improvement. Aspiration Nursing concerned that the pt choked on her food 05/20. -diet per speech therapy. -antibiotics as above. Diabetes mellitus Now with hypoglycemia. -Sliding scale. -long acting insulin on hold. Adjust as needed. -regular diet. Edema S/t IVFs.. -Lasix 20 mg IV BID. Acute kidney injury Creatinine 1.83, no recent baseline for comparison. -Monitor renal function while diuresing. Improved. -avoid nephrotoxins. PPx: Heparin Discharge Planning: Await clinical improvement
[2018-05-23 13:21] LABS: ABG PCO2 42 mmHg (38-42); ABG PO2 79 mmHG (61-120)
--- NOTE | 2018-05-23 13:36 | XR ---
EXAM DATE: 05/23/2018 1:03 PM EDT AGE/SEX: 73 years / Female INDICATIONS: Shortness of breath. CLINICAL DATA: This is the patient's initial encounter. Patient reports that signs and symptoms have been present for 1 day and indicates a pain score of Nonresponsive. MEDICAL/SURGICAL HISTORY: Chronic obstructive pulmonary disease. Diabetes. Hypertension. Dem entia. None. COMPARISON: [facility] [place] 1[place] SING[place] 05/21/2018. . FINDINGS: There continue be some mild infiltrates in both lung bases. Otherwise, the lung feliz remain stable and grossly clear. No definite new infiltrates are demonstrated. The heart size is stable. No signifi cant pleural effusions are seen. There is no evidence of pneumothorax. The bony structures are stable . CONCLUSION: Stable mild bibasal infiltrates. Otherwise, no other new or significant changes compared to the prior study. Electronically signed by: Sixto Martin MD 05/23/2018 1:35 PM EDT
[2018-05-23] MEDS: Vancomycin Inj 1,250 MG in Sodium Chlor 0.9% Inj 250 ML IV.SIG SCH (16:10)
[2018-05-23] MEDS: Mirtazapine 15 MG Tablet PO SCH (21:11)
[2018-05-23] MEDS: Melatonin 5 MG Tablet PO SCH (21:12)
[2018-05-23] MEDS: clonazePAM 0.5 MG Tablet PO PRN (21:12)
[2018-05-24] MEDS: Insulin NovoLOG Aspart Correctional Sugar Inj SQ SCH ×6 (02:25→20:58)
[2018-05-24] MEDS: Heparin - SQ 10,000 UNITS/ML Vial SQ SCH ×3 (02:26→23:08)
[2018-05-24 06:57] LABS: Calcium 8.7 mg/dL (8.5-10.1); Carbon Dioxide 30.4 meq/L (21.0-32.0); Potassium 4.7 meq/L (3.5-5.1)
[2018-05-24] MEDS: MethylPREDNISolone Sod Succinate Inj 40 MG/ML Vial IV.PUSH SCH (08:51)
[2018-05-24] MEDS: levoFLOXacin 500 MG Tablet PO SCH (08:52)
[2018-05-24] MEDS: amLODIPine 10 MG Tablet PO SCH (08:52)
[2018-05-24] MEDS: Sertraline 100 MG Tablet PO SCH (08:52)
[2018-05-24] MEDS: Lisinopril 10 MG Tablet PO SCH (08:52)
[2018-05-24] MEDS: Sodium Chloride 0.9% 2 ML Flush BID IV.FLUSH SCH ×2 (08:53→20:58)
[2018-05-24] MEDS: Senna/Docusate Sodium 8.6/50 MG Tablet PO SCH ×2 (08:53→21:53)
--- NOTE | 2018-05-24 15:31 | P.PNIM ---
Subjective Interval history: The patient said that she was not interested in hospice at this time. She said she will try to eat more and be more active. She had no acute complaints. Discussed with nursing. Physical Exam Vital signs: Vital Signs 05/23/18 16:00 05/23/18 17:00 05/23/18 18:00 Temperature 98.2 F Pulse Rate 114 H 108 H 112 H Respiratory Rate 20 Blood Pressure 165/89 H Pulse Oximetry 100 05/23/18 19:00 05/23/18 19:22 05/23/18 20:00 Temperature 98.5 F Pulse Rate 108 H 104 H Respiratory Rate 18 22 Blood Pressure 148/86 H Pulse Oximetry 100 05/23/18 21:00 05/23/18 21:25 05/23/18 22:00 Temperature Pulse Rate 114 H 114 H 118 H Respiratory Rate 18 Blood Pressure Pulse Oximetry 98 05/23/18 23:00 05/24/18 00:00 05/24/18 01:00 Temperature 98.5 F Pulse Rate 106 H 104 H 100 H Respiratory Rate 20 Blood Pressure 157/96 H Pulse Oximetry 97 05/24/18 02:00 05/24/18 03:00 05/24/18 03:55 Temperature 98.7 F Pulse Rate 100 H 99 H 104 H Respiratory Rate 20 Blood Pressure 153/81 H Pulse Oximetry 97 05/24/18 03:56 05/24/18 05:00 05/24/18 05:53 Temperature Pulse Rate 98 H 99 H 98 H Respiratory Rate Blood Pressure Pulse Oximetry 05/24/18 07:30 05/24/18 07:45 05/24/18 08:00 Temperature 98.7 F Pulse Rate 98 H 100 H Respiratory Rate 24 18 Blood Pressure 154/86 H Pulse Oximetry 96 96 96 05/24/18 10:10 05/24/18 13:00 Temperature Pulse Rate 111 H Respiratory Rate 18 24 Blood Pressure Pulse Oximetry Intake & Output 05/23/18 05/24/18 05/24/18 18:59 06:59 18:59 Intake Total 560 / 560 742.5 / 742.5 Output Total 1625 / 1625 1575 / 1575 Balance -1065 / -1065 -832.5 / -832.5 Weight 73.8 kg Intake: IV 100 / 100 262.5 / 262.5 Vancomycin Inj 1,250 MG In NS 262.5 / 262.5 Inj 250 ML @ 250 mls/hr IV.SIG Q24H [facility] Rx#:[id number] Oral 460 / 460 480 / 480 Output: Urine 1575 / 1575 Urine Amount (Catheter) 1625 / 1625 Indwelling Urethral Catheter 162 / 162 Other: Date of Last Bowel Movement 05/21/18 05/23/18 05/23/18 # Bowel Movements 1 Narrative: Gen.: No acute distress Head: Normocephalic. Atraumatic. EENT: Pupils equal round and reactive to light. Nose without drainage. Airway intact. Throat without injection. Cardiovascular: Regular rate and rhythm. No murmurs, rubs or gallops. Respiratory: Poor air movement. Abdomen: Soft, nontender, nondistended. No peritoneal signs. Musculoskeletal: No gross deformities. 2+ edema. Neuro: Awake and alert. Sensory and motor grossly intact. Cranial nerves II through XII grossly intact. - Urinary Catheter Management Indwelling Urethral Catheter Cath placed during this visit: yes Reason for continuing: Hourly intake/output Insertion date: 05/19/18 Results - Labs CBC & Chem 7: 05/23/18 05:52 05/24/18 05:38 Laboratory Results - last 24 hr 05/23/18 05/23/18 05/23/18 17:36 20:58 21:38 Sodium Potassium Chloride Carbon Dioxide Anion Gap BUN Creatinine Estimated GFR POC Glucose 289 H 173 H Random Glucose Calcium Stl C.difficile DNA Amp Negative St C. diff Tox Epid 027 Negative 05/24/18 05/24/18 05/24/18 02:36 05:38 08:49 Sodium 142 Potassium 4.7 Chloride 103 Carbon Dioxide 30.4 Anion Gap 9 BUN 29 H Creatinine 0.96 Estimated GFR 57 L POC Glucose 159 H 171 H Random Glucose 155 H D Calcium 8.7 Stl C.difficile DNA Amp St C. diff Tox Epid 027 05/24/18 11:39 Sodium Potassium Chloride Carbon Dioxide Anion Gap BUN Creatinine Estimated GFR POC Glucose 187 H Random Glucose Calcium Stl C.difficile DNA Amp St C. diff Tox Epid 027 Assessment and Plan - Plan Shortness of breath/COPD exacerbation/healthcare associated pneumonia/sepsis Patient with leukocytosis, elevated lactic acid, tachycardia and hypoxia. Chest x-ray significant for left base consolidation. Pulmonology consult appreciated. CT showed lower lobe atx vs consolidation and effusions. Still desaturating with minimal exertion. Repeat CXR 05/23 stable. -Vancomycin, aztreonam and azithromycin given penicillin allergy. -Continue BiPAP, wean as tolerated. -Duonebs standing and as needed. -IV Lasix x 1. -PT daily, incentive spirometry. -pulmonology following. -the pt is DNR. Consider hospice if no improvement. Pt would not like to pursue hospice at this time. Aspiration Nursing concerned that the pt choked on her food 05/20. -diet per speech therapy. -antibiotics as above. Diabetes mellitus Now with hypoglycemia. -Sliding scale. -long acting insulin on hold. Adjust as needed. Stable. -regular diet. Edema S/t IVFs.. -Lasix 20 mg IV daily at this time. Acute kidney injury Creatinine 1.83, no recent baseline for comparison. -Monitor renal function while diuresing. Improved. -avoid nephrotoxins. PPx: Heparin Discharge Planning: Await clinical improvement
[2018-05-24] MEDS: Vancomycin Inj 1,250 MG in Sodium Chlor 0.9% Inj 250 ML IV.SIG SCH (16:15)
[2018-05-24] MEDS: Melatonin 5 MG Tablet PO SCH (20:58)
[2018-05-24] MEDS: Mirtazapine 15 MG Tablet PO SCH (20:59)
[2018-05-25] MEDS: Insulin NovoLOG Aspart Correctional Sugar Inj SQ SCH ×5 (03:10→20:56)
[2018-05-25] MEDS: Sertraline 100 MG Tablet PO SCH (09:37)
[2018-05-25] MEDS: levoFLOXacin 500 MG Tablet PO SCH (09:39)
[2018-05-25] MEDS: Lisinopril 10 MG Tablet PO SCH (09:40)
[2018-05-25] MEDS: amLODIPine 10 MG Tablet PO SCH (09:41)
[2018-05-25] MEDS: MethylPREDNISolone Sod Succinate Inj 40 MG/ML Vial IV.PUSH SCH (09:45)
[2018-05-25] MEDS: Sodium Chloride 0.9% 2 ML Flush BID IV.FLUSH SCH ×2 (09:45→21:01)
[2018-05-25] MEDS: Senna/Docusate Sodium 8.6/50 MG Tablet PO SCH ×2 (09:46→20:57)
[2018-05-25] MEDS: Heparin - SQ 10,000 UNITS/ML Vial SQ SCH ×2 (12:16→23:33)
--- NOTE | 2018-05-25 13:39 | P.PNIM ---
Subjective Interval history: The patient was resting in bed. She was mildly confused. She did not have any acute complaints. She said she wanted to sleep. Discussed with nursing. Physical Exam Vital signs: Vital Signs 05/24/18 14:00 05/24/18 15:00 05/24/18 16:00 Temperature 98.6 F Pulse Rate 112 H 107 H 100 H Respiratory Rate 18 Blood Pressure 125/79 Pulse Oximetry 98 05/24/18 17:00 05/24/18 18:00 05/24/18 19:00 Temperature Pulse Rate 100 H 108 H 104 H Respiratory Rate Blood Pressure Pulse Oximetry 05/24/18 19:27 05/24/18 19:39 05/24/18 20:00 Temperature 98.8 F Pulse Rate 101 H 100 H Respiratory Rate 20 18 Blood Pressure 124/67 Pulse Oximetry 99 95 100 05/24/18 20:33 05/24/18 21:00 05/24/18 22:00 Temperature Pulse Rate 100 H 98 H Respiratory Rate Blood Pressure Pulse Oximetry 99 05/24/18 23:00 05/25/18 00:00 05/25/18 01:00 Temperature 98 F Pulse Rate 96 H 93 H 92 H Respiratory Rate 18 Blood Pressure 124/66 Pulse Oximetry 99 05/25/18 01:59 05/25/18 03:00 05/25/18 03:43 Temperature 98.3 F Pulse Rate 96 H 92 H 92 H Respiratory Rate 18 Blood Pressure 132/76 Pulse Oximetry 99 05/25/18 04:00 05/25/18 05:00 05/25/18 06:00 Temperature Pulse Rate 89 87 99 H Respiratory Rate Blood Pressure Pulse Oximetry 05/25/18 07:00 05/25/18 07:34 05/25/18 08:00 Temperature 98.4 F Pulse Rate 102 H 102 H 103 H Respiratory Rate Blood Pressure 142/79 H Pulse Oximetry 100 100 05/25/18 09:00 05/25/18 10:00 05/25/18 11:00 Temperature 98.8 F Pulse Rate 108 H 106 H 97 H Respiratory Rate 13 Blood Pressure 131/73 Pulse Oximetry 99 05/25/18 13:26 Temperature Pulse Rate 105 H Respiratory Rate 18 Blood Pressure Pulse Oximetry Intake & Output 05/24/18 05/25/18 05/25/18 18:59 06:59 18:59 Intake Total 1002.5 / 1002.5 120 / 120 Output Total 1200 / 1200 1000 / 1000 300 / 300 Balance -197.5 / -197.5 -880 / -880 -300 / -300 Weight 74.7 kg Intake: IV 262.5 / 262.5 Vancomycin Inj 1,250 MG In NS 262.5 / 262.5 Inj 250 ML @ 250 mls/hr IV.SIG Q24H [facility] Rx#:[id number] Oral 740 / 740 120 / 120 Output: Urine Amount (Catheter) 1200 / 1200 1000 / 1000 300 / 300 Indwelling Urethral Catheter 1200 / 1200 1000 / 1000 300 / 300 Other: Date of Last Bowel Movement 05/23/18 # Bowel Movements 0 Narrative: Gen.: No acute distress Head: Normocephalic. Atraumatic. EENT: Pupils equal round and reactive to light. Nose without drainage. Airway intact. Throat without injection. Cardiovascular: Tachycardic. No murmurs, rubs or gallops. Respiratory: Poor air movement. Abdomen: Soft, nontender, nondistended. No peritoneal signs. Musculoskeletal: No gross deformities. 2+ edema. Neuro: Awake and alert. Sensory and motor grossly intact. Cranial nerves II through XII grossly intact. - Urinary Catheter Management Indwelling Urethral Catheter Cath placed during this visit: yes Reason for continuing: Hourly intake/output Insertion date: 05/19/18 Results - Labs CBC & Chem 7: 05/23/18 05:52 05/25/18 06:03 Laboratory Results - last 24 hr 05/24/18 05/24/18 05/25/18 17:22 20:47 03:04 Creatinine Estimated GFR POC Glucose 300 H 336 H 171 H 05/25/18 05/25/18 05/25/18 06:03 06:49 12:10 Creatinine 1.05 H Estimated GFR 51 L POC Glucose 154 H 365 H Assessment and Plan - Plan Shortness of breath/COPD exacerbation/healthcare associated pneumonia/sepsis Patient with leukocytosis, elevated lactic acid, tachycardia and hypoxia. Chest x-ray significant for left base consolidation. Pulmonology consult appreciated. CT showed lower lobe atx vs consolidation and effusions. Still desaturating with minimal exertion. Repeat CXR 05/23 stable. -Vancomycin, aztreonam and azithromycin changed to vancomycin and PO Levaquin per pulmonology. -Continue BiPAP/ NRB, wean as tolerated. -Duonebs standing and as needed. -IV Lasix 20 mg daily based on Is and Os. -PT daily, incentive spirometry. -the pt is DNR. Family initially open to hospice if the patient hasn't improved in a few days. Will consult palliative care 05/25. Aspiration Nursing concerned that the pt choked on her food 05/20. -diet per speech therapy. -antibiotics as above. Diabetes mellitus Has had episodes of hypoglycemia. -Sliding scale. -long acting insulin resumed at low dose of 5 units daily. Adjust as needed. Edema S/t IVFs. -Lasix IV based on Is and Os. Acute kidney injury Creatinine 1.83, no recent baseline for comparison. -Monitor renal function while diuresing. Improved. -avoid nephrotoxins. PPx: Heparin Discharge Planning: The pt remains critically ill, requiring NRB constantly. Will consult palliative care for clarification on goals of care. Continue current treatment.
--- NOTE | 2018-05-25 15:01 | P.CONPAL ---
Consult Service: Palliative Care Requesting Physician: Daren Drake Reason for Consult: a. To assist with evaluation and management of symptoms including: Dyspnea, confusion b. To assist medical decision maker(s) with: better understanding of current medical conditions; weighing benefits/burdens of medical treatment options; making medical treatment decisions. Primary Care Provider: Carlos Broussard MD History of Present Illness History of Present Illness: This is a 73-year-old female with a chronic history of COPD, dementia, diabetes , hypertension and rheumatoid arthritis who was brought to the ED via [facility] from her [facility] for evaluation of dyspnea, cough, congestion and increased confusion. Presenting oxygen saturation was in the 80s. She was given supplemental oxygenation and Solu-Medrol during transport she is chronically on 2 L O2. Clinical findings on admission * Chest x-ray showed mild left base consolidation, mildly tortuous thoracic aorta, normal sized heart, no pneumothorax no pleural effusion. * EKG showed sinus tachycardia with PACs, marked left axis deviation, moderate intraventricular conduction delay, minimal ST depression. * WBC 16.7, hemoglobin 11.9, hematocrit 36.1, platelets 238, sodium 136, potassium 5.3, BUN 30, Creatinine 1.83, lactic acid 4.1, pH 7.35, PCO2 42, PaO2 66, HCO3 23, but base excess -1.9, saturation 87% on 8 L via mask. She is seen in room 243, on an 100% nonrebreather, saturating 97%. Per my discussion with the nurse her saturation dips to the 70s within 60 seconds of taking off the mask. She was previously tried on BiPAP, however her saturations dipped into the 80s with BiPAP support. Dyspnea is moderate, continuous, exacerbated by activity or reduction in oxygen, improved with rest and oxygen supplementation. She is currently awake, alert, knows she is in the hospital, not oriented to time or purpose. She can provide some remote history but for all recent history, she defers to her daughter Zena. Her confusion is mild, persistent, chronic with no relieving factors, worsens with hypoxia. She lives in an [facility] and states "I do not like it there. I would rather be in the hospital." Her coloring is somewhat ashen and she is tremulous and generally weak. She states she does not really walk anymore, and this is confirmed by the daughter who states that her mother mostly stays in the wheelchair at the [facility]. The nurse reports she was confused this morning but is improving through the day. Past medical history COPD Dementia Diabetes Hypertension Rheumatoid arthritis Surgical history Right intro trochanteric hip fracture with ORIF, intramedullary nailing Cholecystectomy Social history Former smoker 40-50 yrs x 1-2 ppd No alcohol use No illicit drug use Family history Dad in his 30's of trauma. Mom at 81 from COPD. . Function/Cognitive Trajectory: She has progressively declined over the last several years. She was moved to [place] from [place] by her daughter but wanted to live in a care home and so was placed at [facility] by her daughter, Zena. She no longer walks but generally sits in a wheelchair. Her cognition wavers intermittently, sometimes clear sometimes with memory loss. She was admitted this time with pneumonia, suspicious for aspiration. In August 2013 she was seen by neuropsychology and diagnosed with cerebral vascular dementia. Her memory today remains intermittent. Per her daughter, she did not realize she was in the hospital this morning but this afternoon is oriented to place. . Review of Systems Respiratory: Reports shortness of breath Neurologic: Reports confusion PMFSH - History History Provided By: Patient, Family Member - Medical History Medical History: Medical History (Last Reviewed 05/25/18 @ 09:55 by Britta Ramirez) COPD (chronic obstructive pulmonary disease) Dementia Diabetes Hypertension Rheumatoid arthritis - Surgical History Surgical History: Surgical History (Last Reviewed 05/25/18 @ 09:55 by Britta Ramirez) History of hip surgery Hx of cholecystectomy - Family History Family History: Family History (Last Reviewed 05/25/18 @ 09:55 by Britta Ramirez) Other Diabetes mellitus - Tobacco History Second Hand Smoke Exposure: No Tobacco Use In Past 30 Days: No Smoking Status: Former smoker - Alcohol History How Often Do You Have a Drink Containing Alcohol: Never - Substance Use History Substance History: No History of Abuse - Travel History Recent Travel in the [place] Within the Last 8 Weeks: No Recent Travel Out of the Country Within the Last 8 Weeks: No - Immunization History Tetanus Immunization: Unsure Hx Influenza Vaccine This Season: No Medications and Allergies Active Medications: Active Medications Acetaminophen (Tylenol) 650 mg PO Q4H PRN PRN Reason: Temp > 100.4 Al Hydroxide/Mg Hydroxide (Milk Of Magnesia Liq) 30 ml PO Q12H PRN PRN Reason: Mild Constipation Last Admin: 05/23/18 12:51 Dose: 30 ml Albuterol (Duoneb Neb (Prn)) 1 ampul NEB Q4HR NEB PRN PRN Reason: SOB/Wheezing Last Admin: 05/21/18 16:05 Dose: 1 ampul Albuterol (Duoneb Neb (Porsha)) 1 ampul NEB TID NEB [facility] Last Admin: 05/25/18 13:24 Dose: 1 ampul Amlodipine Besylate (Norvasc) 10 mg PO DAILY [facility] Last Admin: 05/25/18 09:41 Dose: 10 mg Bisacodyl (Dulcolax Supp) 10 mg RECTAL DAILY PRN PRN Reason: SEVERE CONSITIPATION Clonazepam (Klonopin) 0.5 mg PO TID PRN PRN Reason: ANXIETY Last Admin: 05/23/18 21:12 Dose: 0.5 mg Dextrose (D50w Vial) 50 ml IV.PUSH UNSCH PRN PRN Reason: PER HYPOGLYCEMIA PROTOCOL Last Admin: 05/23/18 08:45 Dose: 50 ml Diphenhydramine HCl (Benadryl) 25 mg PO Q4H PRN PRN Reason: ITCHING Glucagon (Glucagon Inj) 1 mg OTHER PRN PRN PRN Reason: for Hypoglycemia Protocol Heparin Sodium (Porcine) (Heparin Inj) 5,000 units SQ Q12H [facility] Last Admin: 05/25/18 12:16 Dose: 5,000 units Vancomycin HCl 1,250 mg/ (Sodium Chloride) 262.5 mls @ 250 mls/hr IV.SIG Q24H [facility] Last Infusion: 05/24/18 17:41 Dose: Infused Insulin Aspart (Novolog Insulin Correctional Sugar Inj) 0 unit SQ ACHS AND 3AM PORSHA; Protocol Last Admin: 05/25/18 12:16 Dose: 9 unit Insulin Detemir (Levemir Inj) 5 unit SQ DAILY PORSHA Lactulose (Lactulose Liq) 30 ml PO DAILY PRN PRN Reason: SEVERE CONSITIPATION Levofloxacin (Levaquin) 500 mg PO DAILY [facility] Last Admin: 05/25/18 09:39 Dose: 500 mg Lisinopril (Prinivil) 10 mg PO DAILY [facility] Last Admin: 05/25/18 09:40 Dose: 10 mg Lorazepam (Ativan Inj) 1 mg IV.PUSH Q2H PRN PRN Reason: agitation Melatonin (Melatonin) 5 mg PO HS [facility] Last Admin: 05/24/18 20:58 Dose: 5 mg Methylprednisolone Sodium Succinate (Solumedrol Inj) 20 mg IV.PUSH DAILY [facility] Last Admin: 05/25/18 09:45 Dose: 20 mg Mirtazapine (Remeron) 30 mg PO HS [facility] Last Admin: 05/24/18 20:59 Dose: 30 mg Morphine Sulfate (Morphine Inj) 4 mg IV.PUSH Q3H PRN PRN Reason: pain 6-10 Ondansetron HCl (Zofran Inj) 4 mg IV.PUSH Q6H PRN PRN Reason: NAUSEA OR VOMITING Senna/Docusate Sodium (Cony-Colace) 1 tab PO BID [facility] Last Admin: 05/25/18 09:46 Dose: 1 tab Sennosides (Senokot) 17.2 mg PO Q12H PRN PRN Reason: Moderate Constipation Sertraline HCl (Zoloft) 125 mg PO DAILY [facility] Last Admin: 05/25/18 09:37 Dose: 125 mg Sodium Chloride (Ns Flush) 2 ml IV.FLUSH BID [facility] Last Admin: 05/25/18 09:45 Dose: 2 ml Sodium Chloride (Ns Flush) 2 ml IV.FLUSH PRN PRN PRN Reason: FLUSH AFTER USING IV ACCESS Tramadol HCl (Ultram) 50 mg PO TID [facility] Last Admin: 05/25/18 12:20 Dose: 50 mg Allergies Allergy/AdvReac Type Severity Reaction Status Date / Time penicillin G Allergy Unknown Rash Verified 05/19/18 04:48 Home Medications Medication Instructions Recorded Confirmed Type amlodipine 10 mg PO DAILY 05/18/18 05/18/18 History clonazepam [Klonopin] 0.5 mg PO TID 05/18/18 05/18/18 History docusate sodium 100 mg PO DAILY 05/18/18 05/18/18 History insulin detemir U-100 [Levemir 28 unit SUBCUT AC 05/18/18 05/18/18 History FlexTouch U-100 Insuln] lisinopril 10 mg PO DAILY 05/18/18 05/18/18 History melatonin 3 mg PO HS 05/18/18 05/18/18 History mirtazapine [Remeron] 30 mg PO HS 05/18/18 05/18/18 History nitroglycerin 0.4 mg SUBLINGUAL Q5-15M PRN 05/18/18 05/18/18 History ondansetron HCl [Zofran] 4 mg PO DAILY 05/18/18 05/18/18 History ranitidine HCl 75 mg PO BID 05/18/18 05/18/18 History sertraline 125 mg PO DAILY 05/18/18 05/18/18 History sucralfate 1 g PO BID 05/18/18 05/18/18 History tramadol 50 mg PO TID 05/18/18 05/18/18 History Advance Directives Living Will: Yes Healthcare Surrogate: Yes Health Care Surrogate Name and Number: Irene Rea Physical Exam Vital Signs: Vital Signs - 24 hr 05/24/18 15:00 05/24/18 16:00 05/24/18 17:00 Temperature 98.6 F Pulse Rate 107 H 100 H 100 H Respiratory Rate 18 Blood Pressure 125/79 Pulse Oximetry 98 05/24/18 18:00 05/24/18 19:00 05/24/18 19:27 Temperature Pulse Rate 108 H 104 H 101 H Respiratory Rate 20 Blood Pressure Pulse Oximetry 99 05/24/18 19:39 05/24/18 20:00 05/24/18 20:33 Temperature 98.8 F Pulse Rate 100 H Respiratory Rate 18 Blood Pressure 124/67 Pulse Oximetry 95 100 99 05/24/18 21:00 05/24/18 22:00 05/24/18 23:00 Temperature Pulse Rate 100 H 98 H 96 H Respiratory Rate Blood Pressure Pulse Oximetry 05/25/18 00:00 05/25/18 01:00 05/25/18 01:59 Temperature 98 F Pulse Rate 93 H 92 H 96 H Respiratory Rate 18 Blood Pressure 124/66 Pulse Oximetry 99 05/25/18 03:00 05/25/18 03:43 05/25/18 04:00 Temperature 98.3 F Pulse Rate 92 H 92 H 89 Respiratory Rate 18 Blood Pressure 132/76 Pulse Oximetry 99 05/25/18 05:00 05/25/18 06:00 05/25/18 07:00 Temperature Pulse Rate 87 99 H 102 H Respiratory Rate Blood Pressure Pulse Oximetry 05/25/18 07:34 05/25/18 08:00 05/25/18 09:00 Temperature 98.4 F Pulse Rate 102 H 103 H 108 H Respiratory Rate Blood Pressure 142/79 H Pulse Oximetry 100 100 05/25/18 10:00 05/25/18 11:00 05/25/18 13:26 Temperature 98.8 F Pulse Rate 106 H 97 H 105 H Respiratory Rate 13 18 Blood Pressure 131/73 Pulse Oximetry 99 I&O: Intake & Output 05/23/18 05/24/18 05/25/18 05/26/18 06:59 06:59 06:59 06:59 Intake Total 1762.5 / 1762.5 1302.5 / 1302.5 1122.5 / 1122.5 Output Total 2500 / 2500 3200 / 3200 2200 / 2200 300 / 300 Balance -737.5 / -737.5 -1897.5 / -1897.5 -1077.5 / -1077.5 -300 / -300 Weight 167 lb 8.821 oz 162 lb 11.218 oz 164 lb 10.965 oz Physical Exam: CONSTITUTIONAL/GENERAL: This is a thin, elderly patient, in no apparent distress. TUBES/LINES/DRAINS: PIV SKIN: Multiple abrasions and healing scratches on bilateral upper extremities. Ecchymoses on upper extremities. No wounds seen anteriorly. Skin temperature appropriate. Not diaphoretic. HEAD: Atraumatic. Normocephalic. EYES: Pupils equal and round and reactive. Extraocular motions intact. No scleral icterus. No injection or drainage. Fundi not examined. ENT: Hearing grossly normal. Nose without bleeding or purulent drainage. Throat without visible erythema, exudates, masses, or lesions. NECK: Trachea midline. Supple, nontender. No palpable thyroid enlargement or nodularity. CARDIOVASCULAR: Regular rate and rhythm without murmurs, gallops, or rubs. No JVD. Peripheral pulses symmetric. RESPIRATORY/CHEST: Dyspneic, wheezy, mild accessory muscle use GASTROINTESTINAL: Abdomen soft, non-tender, nondistended. No hepato-splenomegaly , or palpable masses. No guarding. Bowel sounds present. GENITOURINARY: Without palpable bladder distension. MUSCULOSKELETAL: Extremities without clubbing, cyanosis, or edema. No joint tenderness or effusion noted. No calf tenderness. No mottling or clubbing. LYMPHATICS: No palpable cervical or supraclavicular adenopathy. NEUROLOGICAL: Awake and alert. Motor and sensory grossly within normal limits. Follows commands. Oriented to person and place. Moves all extremities. PSYCHIATRIC: No obvious anxiety/depression. no apparent hallucinations or other psychotic thought process. . Diagnostic Tests Laboratory: Laboratory Results - last 72 hr 05/22/18 05/22/18 05/22/18 16:12 16:57 20:41 WBC RBC Hgb Hct MCV MCH MCHC RDW Plt Count MPV Prelim Diff (Auto) Neut % (Auto) Lymph % (Auto) [place] % (Auto) Eos % (Auto) Baso % (Auto) Neut # (Auto) Lymph # (Auto) [place] # (Auto) Eos # (Auto) Baso # (Auto) WBC Differential Seg Neuts % (Manual) Band Neuts % (Manual) Lymphocytes % (Manual) Monocytes % (Manual) Myelocytes % (Man) Abs Neuts (Manual) Nucleated RBCs/100 WBC Differential Comment Platelet Estimate Platelet Morphology RBC Morphology Puncture Site Patient Temperature O2 Saturation ABG pH ABG pCO2 ABG pO2 ABG HCO3 ABG O2 Content ABG Base Excess ABG Methemoglobin Laz Test Hemoglobin Carboxyhemoglobin O2 Delivery Device Liter Flow Critical Value Sodium Potassium Chloride Carbon Dioxide Anion Gap BUN Creatinine Estimated GFR POC Glucose 177 H 157 H Random Glucose Calcium Stl C.difficile DNA Amp St C. diff Tox Epid 027 Vancomycin Trough 17.4 H 05/23/18 05/23/18 05/23/18 03:34 05:52 05:52 WBC 18.1 H RBC 3.63 L Hgb 11.0 L Hct 34.2 L MCV 94.3 MCH 30.2 MCHC 32.1 RDW 17.4 H Plt Count 253 MPV 9.2 Prelim Diff (Auto) Slide review pending Neut % (Auto) 86.7 H Lymph % (Auto) 7.3 L [place] % (Auto) 5.4 Eos % (Auto) 0.3 Baso % (Auto) 0.3 Neut # (Auto) 15.7 H Lymph # (Auto) 1.3 [place] # (Auto) 1.0 H Eos # (Auto) 0.1 Baso # (Auto) 0.1 WBC Differential Manual diff final Seg Neuts % (Manual) 77 H Band Neuts % (Manual) 10 H Lymphocytes % (Manual) 4 L Monocytes % (Manual) 6 Myelocytes % (Man) 3 H Abs Neuts (Manual) 16.3 H Nucleated RBCs/100 WBC 1 H Differential Comment . Platelet Estimate Normal Platelet Morphology Normal RBC Morphology Normal Puncture Site Patient Temperature O2 Saturation ABG pH ABG pCO2 ABG pO2 ABG HCO3 ABG O2 Content ABG Base Excess ABG Methemoglobin Laz Test Hemoglobin Carboxyhemoglobin O2 Delivery Device Liter Flow Critical Value Sodium 144 Potassium 4.5 D Chloride 108 H Carbon Dioxide 27.6 Anion Gap 8 BUN 38 H Creatinine 1.08 H Estimated GFR 49 L POC Glucose 100 Random Glucose 40 L* D Calcium 8.6 Stl C.difficile DNA Amp St C. diff Tox Epid 027 Vancomycin Trough 05/23/18 05/23/18 05/23/18 08:35 09:48 11:59 WBC RBC Hgb Hct MCV MCH MCHC RDW Plt Count MPV Prelim Diff (Auto) Neut % (Auto) Lymph % (Auto) [place] % (Auto) Eos % (Auto) Baso % (Auto) Neut # (Auto) Lymph # (Auto) [place] # (Auto) Eos # (Auto) Baso # (Auto) WBC Differential Seg Neuts % (Manual) Band Neuts % (Manual) Lymphocytes % (Manual) Monocytes % (Manual) Myelocytes % (Man) Abs Neuts (Manual) Nucleated RBCs/100 WBC Differential Comment Platelet Estimate Platelet Morphology RBC Morphology Puncture Site Patient Temperature O2 Saturation ABG pH ABG pCO2 ABG pO2 ABG HCO3 ABG O2 Content ABG Base Excess ABG Methemoglobin Laz Test Hemoglobin Carboxyhemoglobin O2 Delivery Device Liter Flow Critical Value Sodium Potassium Chloride Carbon Dioxide Anion Gap BUN Creatinine Estimated GFR POC Glucose 46 L* 137 H 113 H Random Glucose Calcium Stl C.difficile DNA Amp St C. diff Tox Epid 027 Vancomycin Trough 05/23/18 05/23/18 05/23/18 13:00 17:36 20:58 WBC RBC Hgb Hct MCV MCH MCHC RDW Plt Count MPV Prelim Diff (Auto) Neut % (Auto) Lymph % (Auto) [place] % (Auto) Eos % (Auto) Baso % (Auto) Neut # (Auto) Lymph # (Auto) [place] # (Auto) Eos # (Auto) Baso # (Auto) WBC Differential Seg Neuts % (Manual) Band Neuts % (Manual) Lymphocytes % (Manual) Monocytes % (Manual) Myelocytes % (Man) Abs Neuts (Manual) Nucleated RBCs/100 WBC Differential Comment Platelet Estimate Platelet Morphology RBC Morphology Puncture Site Right radial Patient Temperature 98.6 O2 Saturation 93 ABG pH 7.41 ABG pCO2 42 ABG pO2 79 ABG HCO3 26 ABG O2 Content 15.9 ABG Base Excess 2.0 ABG Methemoglobin 1.5 Laz Test Y Hemoglobin 12.2 Carboxyhemoglobin 1.1 O2 Delivery Device Prb Liter Flow 15.00 Critical Value No Sodium Potassium Chloride Carbon Dioxide Anion Gap BUN Creatinine Estimated GFR POC Glucose 289 H Random Glucose Calcium Stl C.difficile DNA Amp Negative St C. diff Tox Epid 027 Negative Vancomycin Trough 05/23/18 05/24/18 05/24/18 21:38 02:36 05:38 WBC RBC Hgb Hct MCV MCH MCHC RDW Plt Count MPV Prelim Diff (Auto) Neut % (Auto) Lymph % (Auto) [place] % (Auto) Eos % (Auto) Baso % (Auto) Neut # (Auto) Lymph # (Auto) [place] # (Auto) Eos # (Auto) Baso # (Auto) WBC Differential Seg Neuts % (Manual) Band Neuts % (Manual) Lymphocytes % (Manual) Monocytes % (Manual) Myelocytes % (Man) Abs Neuts (Manual) Nucleated RBCs/100 WBC Differential Comment Platelet Estimate Platelet Morphology RBC Morphology Puncture Site Patient Temperature O2 Saturation ABG pH ABG pCO2 ABG pO2 ABG HCO3 ABG O2 Content ABG Base Excess ABG Methemoglobin Laz Test Hemoglobin Carboxyhemoglobin O2 Delivery Device Liter Flow Critical Value Sodium 142 Potassium 4.7 Chloride 103 Carbon Dioxide 30.4 Anion Gap 9 BUN 29 H Creatinine 0.96 Estimated GFR 57 L POC Glucose 173 H 159 H Random Glucose 155 H D Calcium 8.7 Stl C.difficile DNA Amp St C. diff Tox Epid 027 Vancomycin Trough 05/24/18 05/24/18 05/24/18 08:49 11:39 17:22 WBC RBC Hgb Hct MCV MCH MCHC RDW Plt Count MPV Prelim Diff (Auto) Neut % (Auto) Lymph % (Auto) [place] % (Auto) Eos % (Auto) Baso % (Auto) Neut # (Auto) Lymph # (Auto) [place] # (Auto) Eos # (Auto) Baso # (Auto) WBC Differential Seg Neuts % (Manual) Band Neuts % (Manual) Lymphocytes % (Manual) Monocytes % (Manual) Myelocytes % (Man) Abs Neuts (Manual) Nucleated RBCs/100 WBC Differential Comment Platelet Estimate Platelet Morphology RBC Morphology Puncture Site Patient Temperature O2 Saturation ABG pH ABG pCO2 ABG pO2 ABG HCO3 ABG O2 Content ABG Base Excess ABG Methemoglobin Laz Test Hemoglobin Carboxyhemoglobin O2 Delivery Device Liter Flow Critical Value Sodium Potassium Chloride Carbon Dioxide Anion Gap BUN Creatinine Estimated GFR POC Glucose 171 H 187 H 300 H Random Glucose Calcium Stl C.difficile DNA Amp St C. diff Tox Epid 027 Vancomycin Trough 05/24/18 05/25/18 05/25/18 20:47 03:04 06:03 WBC RBC Hgb Hct MCV MCH MCHC RDW Plt Count MPV Prelim Diff (Auto) Neut % (Auto) Lymph % (Auto) [place] % (Auto) Eos % (Auto) Baso % (Auto) Neut # (Auto) Lymph # (Auto) [place] # (Auto) Eos # (Auto) Baso # (Auto) WBC Differential Seg Neuts % (Manual) Band Neuts % (Manual) Lymphocytes % (Manual) Monocytes % (Manual) Myelocytes % (Man) Abs Neuts (Manual) Nucleated RBCs/100 WBC Differential Comment Platelet Estimate Platelet Morphology RBC Morphology Puncture Site Patient Temperature O2 Saturation ABG pH ABG pCO2 ABG pO2 ABG HCO3 ABG O2 Content ABG Base Excess ABG Methemoglobin Laz Test Hemoglobin Carboxyhemoglobin O2 Delivery Device Liter Flow Critical Value Sodium Potassium Chloride Carbon Dioxide Anion Gap BUN Creatinine 1.05 H Estimated GFR 51 L POC Glucose 336 H 171 H Random Glucose Calcium Stl C.difficile DNA Amp St C. diff Tox Epid 027 Vancomycin Trough 05/25/18 05/25/18 06:49 12:10 WBC RBC Hgb Hct MCV MCH MCHC RDW Plt Count MPV Prelim Diff (Auto) Neut % (Auto) Lymph % (Auto) [place] % (Auto) Eos % (Auto) Baso % (Auto) Neut # (Auto) Lymph # (Auto) [place] # (Auto) Eos # (Auto) Baso # (Auto) WBC Differential Seg Neuts % (Manual) Band Neuts % (Manual) Lymphocytes % (Manual) Monocytes % (Manual) Myelocytes % (Man) Abs Neuts (Manual) Nucleated RBCs/100 WBC Differential Comment Platelet Estimate Platelet Morphology RBC Morphology Puncture Site Patient Temperature O2 Saturation ABG pH ABG pCO2 ABG pO2 ABG HCO3 ABG O2 Content ABG Base Excess ABG Methemoglobin Laz Test Hemoglobin Carboxyhemoglobin O2 Delivery Device Liter Flow Critical Value Sodium Potassium Chloride Carbon Dioxide Anion Gap BUN Creatinine Estimated GFR POC Glucose 154 H 365 H Random Glucose Calcium Stl C.difficile DNA Amp St C. diff Tox Epid 027 Vancomycin Trough Result Diagrams: 05/28/18 05:07 05/28/18 05:07 Microbiology: Microbiology 05/18/18 19:39 Aerobic Blood Culture - Final Blood - Peripheral No growth in 5 days Anaerobic Blood Culture - Final No growth in 5 days 05/18/18 19:44 Aerobic Blood Culture - Final Blood - Peripheral No growth in 5 days Anaerobic Blood Culture - Final No growth in 5 days 05/20/18 14:20 Urine Culture - Final Catheterized Urine No growth in 48 hours Imaging: Chest X-Ray 05/18/18 19:31 CONCLUSION: Mild left base consolidation. Abdomen/Bladder Ultrasound 05/20/18 00:00 CONCLUSION: 1. Small echogenic kidneys consistent with probable medical renal disease. Chest X-Ray 05/20/18 10:22 CONCLUSION: 1. Bibasilar and right perihilar patchiness is noted consistent with probable pneumonia. Clinical correlation is recommended. 2. Cardiomegaly. Chest CT 05/21/18 00:00 CONCLUSION: Bilateral lower lobe atelectasis versus pneumonia. Small bilateral effusions Chest X-Ray 05/21/18 16:01 CONCLUSION: No significant interval change Chest X-Ray 05/23/18 13:03 CONCLUSION: Stable mild bibasal infiltrates. Otherwise, no other new or significant changes compared to the prior study. Patient/Family Conference Present at Family Conference: Spoke with her daughter, Chapis, via telephone and reviewed palliative care purpose and focus, reviewed below listed items, past medical, surgical, social, psychosocial, family history and patient's current clinical presentation. Reviewed past imaging studies and answered all questions to the best of my ability. Irene had multiple questions regarding hospice which were explored extensively. She would like to meet tomorrow with palliative care to review her mother's progress as she will be out of town through Thursday and available only by phone. She has also requested an information consult from hospice to establish contact she works through these decisions. Contact information was provided to the daughter for any further questions or concerns. . Family Conference Location: Telephone Issues Discussed: * Palliative care role, purpose, approach * Additional medical, psychosocial, and spiritual history * Patients general health, functional status, and cognitive changes in the months leading up to the current hospitalization * Patient/family understanding of the current medical problems * Patient/family understanding of prognosis * Patients goals of care as best understood from advance directives and/or conversations and/or values * Current medical treatment options and benefits/burdens of those options * Likely scenarios comparing ongoing aggressive care with a transition to comfort measures only * Questions answered to the best of my ability * Palliative care contact information provided Assessment and Plan - Symptom Scale (1) Dyspnea 0-10 Scale: Unable to quantify (Patient confused) (2) Confusion 0-10 Scale: Unable to quantify (Patient confused) Pertinent Non-Medical Issues: Psychosocial: She was born in [place], [place] and spent the majority of her life there. She was and had 3 children but has since been . Spiritual: Denominational angela. Legal: Living will and healthcare surrogate scanned into [employer]. Ethical issues impacting care: None noted. . Important Contacts: Daughter: Chapis Rea . Prognosis: Her prognosis is guarded. She does have acute COPD exacerbation, now compromised by left basilar pneumonia with hypoxemia. She also has acute on chronic kidney disease. She has a baseline dementia and her cognition wavers intermittently. At this evaluation she remains on a 100% nonrebreather adequate saturations, however desaturates quickly to the 70s with reduction in oxygen. She is receiving antibiotics and full respiratory support however is requiring more oxygen. On 05/21 she was on 3 L nasal cannula and since that time has required 10-12 L to maintain saturations. She is at risk for further complications and decline. Family has requested hospice information and we will meet tomorrow for further evaluation. . Code Status: No Code DNR Plan: PLAN: Legal decision maker: Goals: CODE STATUS: DO NOT RESUSCITATE SYMPTOMS: * Dyspnea: Likely pneumonia, questionable healthcare associated with sepsis. Remains on vancomycin and oral Levaquin. Requires BiPAP or nonrebreather intermittently as well as DuoNeb's both scheduled and PRN. Oxygenation requirements increasing since 05/21 when she was only requiring 3 L nasal cannula. Pulmonology following. * Confusion: Baseline dementia, worsening with acute illness, per my discussion with her daughter. Intermittent confusion, worsening at night. Possibly related to hypoxia. No further recommendations at this time. SUMMARY This is a 73-year-old female with a history of COPD admitted with pneumonia and sepsis. In addition to her history of COPD she also has a history of chronic kidney disease and dementia and is starting to experience the trajectory of decline. Family is considering adding hospice services and and information consultation has been requested to assist the family in decision-making. Palliative care will continue to follow the patient during hospital course as condition evolves, to assist patient/decision-maker with understanding of their medical conditions, weighing benefits/burdens of treatment options, for clarification of goals of treatment. Additionally will assist with any symptoms of palliative concern. . Appreciation Thank you for the opportunity to participate in the care of Siri Corral. Attestation Attestation: To help prompt me to consider important information that might be impacting today's encounter and assessment, information from prior notes written by myself or my colleagues may have been "brought forward" into today's note. My signature on this note, however, is an attestation that I personally performed the exam, history, and/or decision-making noted today, and, unless otherwise indicated, the interactions with patient, family, and staff as well as the review of records all occurred today. I also attest that the listed assessment and stated plan reflect my best clinical judgment today based on the combination of historical information, prior notes, and today's exam/ interactions. When time spent is documented, it refers only to time spent today by the signer, or if indicated, combined time spent today by collaborating physician/nurse practitioner. .
[2018-05-25] MEDS: Vancomycin Inj 1,250 MG in Sodium Chlor 0.9% Inj 250 ML IV.SIG SCH (16:50)
[2018-05-25] MEDS: Melatonin 5 MG Tablet PO SCH (20:57)
[2018-05-25] MEDS: Mirtazapine 15 MG Tablet PO SCH (20:57)
[2018-05-26] MEDS: Insulin NovoLOG Aspart Correctional Sugar Inj SQ SCH ×5 (04:11→20:48)
[2018-05-26] MEDS: Insulin Detemir Inj 1,000 UNIT/10 ML Vial SQ SCH (09:31)
[2018-05-26] MEDS: levoFLOXacin 500 MG Tablet PO SCH (09:32)
[2018-05-26] MEDS: MethylPREDNISolone Sod Succinate Inj 40 MG/ML Vial IV.PUSH SCH (09:32)
[2018-05-26] MEDS: amLODIPine 10 MG Tablet PO SCH (09:32)
[2018-05-26] MEDS: Lisinopril 10 MG Tablet PO SCH (09:33)
[2018-05-26] MEDS: Senna/Docusate Sodium 8.6/50 MG Tablet PO SCH ×2 (09:33→20:48)
[2018-05-26] MEDS: Sertraline 100 MG Tablet PO SCH (09:33)
[2018-05-26] MEDS: Sodium Chloride 0.9% 2 ML Flush BID IV.FLUSH SCH ×2 (09:34→20:48)
[2018-05-26 10:27] LABS: Hematocrit 33.2 % (35.0-46.0); Hemoglobin 10.8 gm/dL (11.6-15.3); Mean Corpuscular HGB Conc 32.5 % (32.0-36.0); Mean Corpuscular Hemoglobin 30.6 pg (27.0-34.0); Mean Corpuscular Volume 94.1 fL (80.0-100.0); Mean Platelet Volume 9.5 fL (7.0-11.0); Platelet Count 191 th/mm3 (150-450); Red Blood Count 3.53 mil/mm3 (4.00-5.30); Red Cell Distribution Width 16.8 % (11.6-17.2); White Blood Count 9.7 th/mm3 (4.0-11.0)
[2018-05-26] MEDS: Heparin - SQ 10,000 UNITS/ML Vial SQ SCH ×2 (10:55→22:26)
[2018-05-26 11:04] LABS: Calcium 8.7 mg/dL (8.5-10.1); Magnesium 1.7 mg/dL (1.5-2.5)
--- NOTE | 2018-05-26 13:38 | P.PNIM ---
Subjective Interval history: Discussed with RN. The patient keeps removing the nonrebreather mask which caused her oxygen saturation to drop. She reports to me that she is feeling tired. We discussed the need to be compliant with oxygen. Physical Exam Vital signs: Vital Signs 05/25/18 14:00 05/25/18 15:00 05/25/18 16:00 Temperature 98.2 F Pulse Rate 98 H 93 H 95 H Respiratory Rate 18 18 Blood Pressure 116/65 Pulse Oximetry 96 05/25/18 17:36 05/25/18 18:00 05/25/18 19:00 Temperature Pulse Rate 94 H Respiratory Rate 18 Blood Pressure Pulse Oximetry 97 05/25/18 19:21 05/25/18 19:26 05/25/18 19:33 Temperature 97.9 F Pulse Rate 92 H 93 H Respiratory Rate 20 18 Blood Pressure 114/62 Pulse Oximetry 99 05/25/18 19:40 05/25/18 20:00 05/25/18 21:00 Temperature Pulse Rate 94 H 94 H 94 H Respiratory Rate Blood Pressure Pulse Oximetry 98 05/25/18 22:00 05/25/18 23:00 05/25/18 23:31 Temperature 98.1 F Pulse Rate 88 88 90 Respiratory Rate 21 Blood Pressure 124/64 Pulse Oximetry 99 05/26/18 00:07 05/26/18 01:00 05/26/18 02:00 Temperature Pulse Rate 89 90 92 H Respiratory Rate Blood Pressure Pulse Oximetry 05/26/18 03:00 05/26/18 04:04 05/26/18 04:13 Temperature 97.8 F Pulse Rate 90 96 H 97 H Respiratory Rate 19 Blood Pressure 136/68 Pulse Oximetry 97 05/26/18 05:00 05/26/18 06:00 05/26/18 07:00 Temperature Pulse Rate 86 80 95 H Respiratory Rate Blood Pressure Pulse Oximetry 05/26/18 07:53 05/26/18 07:55 05/26/18 08:00 Temperature 98.3 F Pulse Rate 91 H 95 H Respiratory Rate 18 16 Blood Pressure 123/60 Pulse Oximetry 92 L 96 05/26/18 09:00 05/26/18 10:00 05/26/18 11:00 Temperature Pulse Rate 91 H 90 95 H Respiratory Rate Blood Pressure Pulse Oximetry 05/26/18 11:36 05/26/18 12:00 05/26/18 12:40 Temperature 98 F Pulse Rate 92 H 100 H 90 Respiratory Rate 16 20 Blood Pressure 126/63 Pulse Oximetry 98 05/26/18 13:00 Temperature Pulse Rate 105 H Respiratory Rate Blood Pressure Pulse Oximetry Intake & Output 05/25/18 05/26/18 05/26/18 18:59 06:59 18:59 Intake Total 740 / 740 662.5 / 662.5 Output Total 1300 / 1300 1200 / 1200 Balance -560 / -560 -537.5 / -537.5 Weight 74.6 kg Intake: IV 262.5 / 262.5 Vancomycin Inj 1,250 MG In NS 262.5 / 262.5 Inj 250 ML @ 250 mls/hr IV.SIG Q24H [facility] Rx#:[id number] Oral 740 / 740 400 / 400 Output: Urine 1000 / 1000 Urine Amount (Catheter) 300 / 300 1200 / 1200 Indwelling Urethral Catheter 300 / 300 1200 / 1200 Other: Date of Last Bowel Movement 05/23/18 Narrative: GENERAL: Elderly female in mild respiratory distress. CARDIOVASCULAR: Normal rate and regular rhythm without murmurs, gallops, or rubs. RESPIRATORY: Poor air movement. Diffuse rhonchi. GASTROINTESTINAL: Abdomen soft, non-tender, non-distended. Normal active bowel sounds MUSCULOSKELETAL: 2+ bilateral lower extremity edema NEURO: Alert & Oriented to self and place. Moves all ext x4 PSYCH: Appropriate mood and affect. - Urinary Catheter Management Indwelling Urethral Catheter Cath placed during this visit: yes Reason for continuing: Terminally ill/Comfort care Insertion date: 05/19/18 Results - Labs CBC & Chem 7: 05/26/18 10:10 05/26/18 10:10 Laboratory Results - last 24 hr 05/25/18 05/25/18 05/26/18 16:45 20:52 04:07 WBC RBC Hgb Hct MCV MCH MCHC RDW Plt Count MPV Sodium Potassium Chloride Carbon Dioxide Anion Gap BUN Creatinine Estimated GFR POC Glucose 406 H 264 H 346 H Random Glucose Calcium Magnesium 05/26/18 05/26/18 05/26/18 07:52 10:10 10:10 WBC 9.7 RBC 3.53 L Hgb 10.8 L Hct 33.2 L MCV 94.1 MCH 30.6 MCHC 32.5 RDW 16.8 Plt Count 191 MPV 9.5 Sodium 141 Potassium 4.0 Chloride 100 Carbon Dioxide 34.0 H Anion Gap 7 BUN 28 H Creatinine 0.94 Estimated GFR 58 L POC Glucose 172 H Random Glucose 198 H Calcium 8.7 Magnesium 1.7 05/26/18 11:24 WBC RBC Hgb Hct MCV MCH MCHC RDW Plt Count MPV Sodium Potassium Chloride Carbon Dioxide Anion Gap BUN Creatinine Estimated GFR POC Glucose 255 H Random Glucose Calcium Magnesium Assessment and Plan - Plan 73-year-old female with: Acute respiratory failure secondary to COPD exacerbation/healthcare associated pneumonia/sepsis Patient with leukocytosis, elevated lactic acid, tachycardia and hypoxia. Chest x-ray significant for left base consolidation. Pulmonology consult appreciated. CT showed lower lobe atx vs consolidation and effusions. Still desaturating with minimal exertion. Repeat CXR 05/23 stable. -Continue Levaquin and vancomycin -Continue BiPAP/ NRB, wean as tolerated. She has been refusing BiPAP. -Duonebs standing and as needed. -IV Lasix 20 mg daily based on Is and Os. -PT daily, incentive spirometry. -the pt is DNR. Family initially open to hospice if the patient hasn't improved in a few days. Appreciate palliative care assistance. Hospice consulted for information and will discuss with the patient and her family today. Aspiration Nursing concerned that the pt choked on her food 05/20. -diet per speech therapy. -antibiotics as above. Diabetes mellitus Has had episodes of hypoglycemia. -Sliding scale. -long acting insulin at low dose of 5 units daily. Adjust as needed. Edema S/t IVFs. -Lasix IV based on Is and Os. Acute kidney injury -Renal functions normalized -Monitor renal function while diuresing. -avoid nephrotoxins. PPx: Heparin Discharge Planning: Patient remains severely hypoxemic requiring nonrebreather. They do not want to escalate care, wished to remain a DNR. Hospice services consulted.
[2018-05-26] MEDS: Vancomycin Inj 1,250 MG in Sodium Chlor 0.9% Inj 250 ML IV.SIG SCH (16:08)
[2018-05-26] MEDS: Mirtazapine 15 MG Tablet PO SCH (20:47)
[2018-05-26] MEDS: Melatonin 5 MG Tablet PO SCH (20:48)
[2018-05-27] MEDS: Insulin NovoLOG Aspart Correctional Sugar Inj SQ SCH ×5 (03:11→21:23)
[2018-05-27] MEDS: Insulin Detemir Inj 1,000 UNIT/10 ML Vial SQ SCH (08:46)
[2018-05-27] MEDS: amLODIPine 10 MG Tablet PO SCH (08:47)
[2018-05-27] MEDS: levoFLOXacin 500 MG Tablet PO SCH (08:47)
[2018-05-27] MEDS: Senna/Docusate Sodium 8.6/50 MG Tablet PO SCH ×2 (08:47→21:23)
[2018-05-27] MEDS: Lisinopril 10 MG Tablet PO SCH (08:47)
[2018-05-27] MEDS: MethylPREDNISolone Sod Succinate Inj 40 MG/ML Vial IV.PUSH SCH (08:47)
[2018-05-27] MEDS: Sertraline 100 MG Tablet PO SCH (08:47)
[2018-05-27] MEDS: Sodium Chloride 0.9% 2 ML Flush BID IV.FLUSH SCH ×2 (08:48→21:24)
[2018-05-27] MEDS: Heparin - SQ 10,000 UNITS/ML Vial SQ SCH ×2 (11:00→22:43)
[2018-05-27 12:04] LABS: Hematocrit 35.4 % (35.0-46.0); Hemoglobin 11.4 gm/dL (11.6-15.3); Mean Corpuscular HGB Conc 32.3 % (32.0-36.0); Mean Corpuscular Hemoglobin 30.5 pg (27.0-34.0); Mean Corpuscular Volume 94.6 fL (80.0-100.0); Mean Platelet Volume 9.7 fL (7.0-11.0); Platelet Count 203 th/mm3 (150-450); Red Blood Count 3.75 mil/mm3 (4.00-5.30); Red Cell Distribution Width 17.3 % (11.6-17.2); White Blood Count 11.5 th/mm3 (4.0-11.0)
[2018-05-27 12:27] LABS: Calcium 8.6 mg/dL (8.5-10.1); Carbon Dioxide 34.9 meq/L (21.0-32.0)
--- NOTE | 2018-05-27 14:18 | P.PNPAL ---
Reason for Visit Reason for visit: a. To assist with evaluation and management of symptoms including: Dyspnea, confusion b. To assist medical decision maker(s) with: better understanding of current medical conditions; weighing benefits/burdens of medical treatment options; making medical treatment decisions. Subjective Subjective/Interval History: Patient seen today for follow-up of symptom management for dyspnea and confusion and goals of medical treatment. She remains dyspneic, but noncompliant with the oxygen mask. She frequently pulls it off with near immediate decrease in her saturations. In spite of frequent reminders, she refuses to be compliant with the mask. Due to her worsening respiratory function, physical therapy was held for today. She has been intermittently refusing BiPAP. This is complicated by intermittent aspiration. Patient was seen by hospice at the family's request after discussion with the hospice nurse it was determined that goals were not yet consistent with hospice, however the patient does remain DO NOT RESUSCITATE status. Her dyspnea is severe, constant, worsening with any exertion, significant compromise of her oxygen saturations without aggressive oxygenation. She is intermittently confused, oriented to self and place. She appears to have poor insight into her condition and poor safety awareness. Her confusion is mild, constant, exacerbated by removing her oxygen as she becomes hypoxic so quickly with frequent cough, mild tachypnea and intermittent tachycardia. . Family/Friend Interactions: No family is at bedside at this time. Her daughter is out of town until Thursday. . Advance Directives Health Care Surrogate Name and Number: Irene Rea Objective Vital Signs: Vital Signs 05/26/18 14:00 05/26/18 15:00 05/26/18 16:00 Temperature 98 F Pulse Rate 94 H 94 H 92 H Respiratory Rate 16 Blood Pressure 126/63 Pulse Oximetry 98 05/26/18 17:00 05/26/18 18:00 05/26/18 19:00 Temperature Pulse Rate 100 H 103 H 98 H Respiratory Rate Blood Pressure Pulse Oximetry 05/26/18 19:16 05/26/18 20:00 05/26/18 21:00 Temperature 98.4 F Pulse Rate 94 H 92 H Respiratory Rate 14 Blood Pressure 124/66 Pulse Oximetry 99 99 05/26/18 22:00 05/26/18 23:00 05/27/18 00:00 Temperature 98.2 F Pulse Rate 86 97 H 81 Respiratory Rate 16 Blood Pressure 121/66 Pulse Oximetry 100 05/27/18 01:00 05/27/18 02:00 05/27/18 03:00 Temperature Pulse Rate 81 82 91 H Respiratory Rate Blood Pressure Pulse Oximetry 05/27/18 04:00 05/27/18 05:00 05/27/18 06:00 Temperature 98.0 F Pulse Rate 89 90 102 H Respiratory Rate 16 Blood Pressure 121/65 Pulse Oximetry 99 05/27/18 07:00 05/27/18 08:00 05/27/18 08:30 Temperature 97.9 F Pulse Rate 90 85 Respiratory Rate 17 Blood Pressure 125/64 Pulse Oximetry 100 100 05/27/18 09:00 05/27/18 10:00 05/27/18 11:00 Temperature Pulse Rate 100 H 105 H 109 H Respiratory Rate Blood Pressure Pulse Oximetry 05/27/18 11:37 05/27/18 12:00 05/27/18 12:55 Temperature 98 F Pulse Rate 103 H 108 H Respiratory Rate 16 Blood Pressure 134/74 Pulse Oximetry 99 100 05/27/18 13:00 05/27/18 13:45 Temperature Pulse Rate 105 H Respiratory Rate Blood Pressure Pulse Oximetry 97 Intake & Output 05/26/18 05/27/18 05/27/18 18:59 06:59 18:59 Intake Total 840 / 840 502.5 / 502.5 Output Total 550 / 550 250 / 250 Balance 290 / 290 252.5 / 252.5 Weight 162 lb 4.163 oz Intake: IV 262.5 / 262.5 Vancomycin Inj 1,250 MG In NS 262.5 / 262.5 Inj 250 ML @ 250 mls/hr IV.SIG Q24H [facility] Rx#:[id number] Oral 840 / 840 240 / 240 Output: Urine Amount (Catheter) 550 / 550 250 / 250 Indwelling Urethral Catheter 550 / 550 250 / 250 Physical Exam: CONSTITUTIONAL/GENERAL: This is a thin, elderly patient, in no apparent distress. TUBES/LINES/DRAINS: PIV CARDIOVASCULAR: Regular rate and rhythm without murmurs, gallops, or rubs. No JVD. Peripheral pulses symmetric. RESPIRATORY/CHEST: Dyspneic, wheezy, mild accessory muscle use GASTROINTESTINAL: Abdomen soft, non-tender, nondistended. No hepato-splenomegaly , or palpable masses. No guarding. Bowel sounds present. GENITOURINARY: Without palpable bladder distension. MUSCULOSKELETAL: Extremities without clubbing, cyanosis, or edema. No joint tenderness or effusion noted. No calf tenderness. No mottling or clubbing. LYMPHATICS: No palpable cervical or supraclavicular adenopathy. NEUROLOGICAL: Awake and alert. Motor and sensory grossly within normal limits. Oriented to person and place. Moves all extremities. PSYCHIATRIC: Confused. Noncompliant with therapy. . Diagnostic Tests Laboratory: Laboratory Results - last 72 hr 05/24/18 05/24/18 05/25/18 17:22 20:47 03:04 WBC RBC Hgb Hct MCV MCH MCHC RDW Plt Count MPV Sodium Potassium Chloride Carbon Dioxide Anion Gap BUN Creatinine Estimated GFR POC Glucose 300 H 336 H 171 H Random Glucose Calcium Magnesium 05/25/18 05/25/18 05/25/18 06:03 06:49 12:10 WBC RBC Hgb Hct MCV MCH MCHC RDW Plt Count MPV Sodium Potassium Chloride Carbon Dioxide Anion Gap BUN Creatinine 1.05 H Estimated GFR 51 L POC Glucose 154 H 365 H Random Glucose Calcium Magnesium 05/25/18 05/25/18 05/26/18 16:45 20:52 04:07 WBC RBC Hgb Hct MCV MCH MCHC RDW Plt Count MPV Sodium Potassium Chloride Carbon Dioxide Anion Gap BUN Creatinine Estimated GFR POC Glucose 406 H 264 H 346 H Random Glucose Calcium Magnesium 05/26/18 05/26/18 05/26/18 07:52 10:10 10:10 WBC 9.7 RBC 3.53 L Hgb 10.8 L Hct 33.2 L MCV 94.1 MCH 30.6 MCHC 32.5 RDW 16.8 Plt Count 191 MPV 9.5 Sodium 141 Potassium 4.0 Chloride 100 Carbon Dioxide 34.0 H Anion Gap 7 BUN 28 H Creatinine 0.94 Estimated GFR 58 L POC Glucose 172 H Random Glucose 198 H Calcium 8.7 Magnesium 1.7 05/26/18 05/26/18 05/26/18 11:24 16:37 20:36 WBC RBC Hgb Hct MCV MCH MCHC RDW Plt Count MPV Sodium Potassium Chloride Carbon Dioxide Anion Gap BUN Creatinine Estimated GFR POC Glucose 255 H 405 H 359 H Random Glucose Calcium Magnesium 05/27/18 05/27/18 05/27/18 03:10 05:14 07:47 WBC RBC Hgb Hct MCV MCH MCHC RDW Plt Count MPV Sodium Potassium Chloride Carbon Dioxide Anion Gap BUN Creatinine 0.94 Estimated GFR 58 L POC Glucose 101 140 H Random Glucose Calcium Magnesium 05/27/18 05/27/18 05/27/18 11:04 11:23 11:23 WBC 11.5 H RBC 3.75 L Hgb 11.4 L Hct 35.4 MCV 94.6 MCH 30.5 MCHC 32.3 RDW 17.3 H Plt Count 203 MPV 9.7 Sodium 143 Potassium 5.0 D Chloride 99 Carbon Dioxide 34.9 H Anion Gap 9 BUN 28 H Creatinine 1.00 Estimated GFR 54 L POC Glucose 241 H Random Glucose 241 H Calcium 8.6 Magnesium Result Diagrams: 05/27/18 11:23 05/27/18 11:23 Microbiology: Microbiology 05/18/18 19:39 Blood - Peripheral Aerobic Blood Culture - Final No growth in 5 days 05/18/18 19:39 Blood - Peripheral Anaerobic Blood Culture - Final No growth in 5 days 05/18/18 19:44 Blood - Peripheral Aerobic Blood Culture - Final No growth in 5 days 05/18/18 19:44 Blood - Peripheral Anaerobic Blood Culture - Final No growth in 5 days 05/20/18 14:20 Catheterized Urine Urine Culture - Final No growth in 48 hours Imaging: Chest X-Ray 05/18/18 19:31 CONCLUSION: Mild left base consolidation. Abdomen/Bladder Ultrasound 05/20/18 00:00 CONCLUSION: 1. Small echogenic kidneys consistent with probable medical renal disease. Chest X-Ray 05/20/18 10:22 CONCLUSION: 1. Bibasilar and right perihilar patchiness is noted consistent with probable pneumonia. Clinical correlation is recommended. 2. Cardiomegaly. Chest CT 05/21/18 00:00 CONCLUSION: Bilateral lower lobe atelectasis versus pneumonia. Small bilateral effusions Chest X-Ray 05/21/18 16:01 CONCLUSION: No significant interval change Chest X-Ray 05/23/18 13:03 CONCLUSION: Stable mild bibasal infiltrates. Otherwise, no other new or significant changes compared to the prior study. Assessment and Plan - Disease Oriented Problem List (1) Respiratory failure (2) COPD exacerbation (3) Aspiration pneumonia (4) Dementia (5) Sepsis Pertinent Non-Medical Issues: Psychosocial: She was born in [place], [place] and spent the majority of her life there. She was and had 3 children but has since been . Spiritual: Zoroastrianism angela. Legal: Living will and healthcare surrogate scanned into [employer]. Ethical issues impacting care: None noted. . Important Contacts: Daughter: Chapis Rea . Prognosis: Her prognosis is guarded. She does have acute COPD exacerbation, now compromised by left basilar pneumonia with hypoxemia. She also has acute on chronic kidney disease. She has a baseline dementia and her cognition wavers intermittently. At this evaluation she remains on a 100% nonrebreather adequate saturations, however desaturates quickly to the 70s with reduction in oxygen. She is receiving antibiotics and full respiratory support however is requiring more oxygen. On 05/21 she was on 3 L nasal cannula and since that time has required 10-12 L to maintain saturations. She is at risk for further complications and decline. Family has requested hospice information and we will meet tomorrow for further evaluation. . Code Status: No Code DNR Plan: PLAN: Legal decision maker: Goals: CODE STATUS: DO NOT RESUSCITATE SYMPTOMS: * Dyspnea: Likely aspiration pneumonia versus healthcare associated with sepsis. Remains on vancomycin and oral Levaquin. Requires BiPAP or nonrebreather intermittently as well as DuoNeb's both scheduled and PRN. Oxygenation requirements increasing since 05/21 when she was only requiring 3 L nasal cannula. Pulmonology following. Family declining hospice at this time. * Confusion: Baseline dementia, worsening with acute illness, per my discussion with her daughter. Intermittent confusion, worsening at night. Possibly related to hypoxia. No further recommendations at this time. Palliative care will continue to follow the patient during hospital course as condition evolves, to assist patient/decision-maker with understanding of their medical conditions, weighing benefits/burdens of treatment options, for clarification of goals of treatment. Additionally will assist with any symptoms of palliative concern. . Attestation Attestation: To help prompt me to consider important information that might be impacting today's encounter and assessment, information from prior notes written by myself or my colleagues may have been "brought forward" into today's note. My signature on this note, however, is an attestation that I personally performed the exam, history, and/or decision-making noted today, and, unless otherwise indicated, the interactions with patient, family, and staff as well as the review of records all occurred today. I also attest that the listed assessment and stated plan reflect my best clinical judgment today based on the combination of historical information, prior notes, and today's exam/ interactions. When time spent is documented, it refers only to time spent today by the signer, or if indicated, combined time spent today by collaborating physician/nurse practitioner. .
--- NOTE | 2018-05-27 14:27 | P.PNIM ---
Subjective Interval history: Patient continues to be hypoxemic requiring a nonrebreather. She has been refusing BiPAP Physical Exam Vital signs: Vital Signs 05/26/18 15:00 05/26/18 16:00 05/26/18 17:00 Temperature 98 F Pulse Rate 94 H 92 H 100 H Respiratory Rate 16 Blood Pressure 126/63 Pulse Oximetry 98 05/26/18 18:00 05/26/18 19:00 05/26/18 19:16 Temperature Pulse Rate 103 H 98 H Respiratory Rate Blood Pressure Pulse Oximetry 99 05/26/18 20:00 05/26/18 21:00 05/26/18 22:00 Temperature 98.4 F Pulse Rate 94 H 92 H 86 Respiratory Rate 14 Blood Pressure 124/66 Pulse Oximetry 99 05/26/18 23:00 05/27/18 00:00 05/27/18 01:00 Temperature 98.2 F Pulse Rate 97 H 81 81 Respiratory Rate 16 Blood Pressure 121/66 Pulse Oximetry 100 05/27/18 02:00 05/27/18 03:00 05/27/18 04:00 Temperature 98.0 F Pulse Rate 82 91 H 89 Respiratory Rate 16 Blood Pressure 121/65 Pulse Oximetry 99 05/27/18 05:00 05/27/18 06:00 05/27/18 07:00 Temperature Pulse Rate 90 102 H 90 Respiratory Rate Blood Pressure Pulse Oximetry 05/27/18 08:00 05/27/18 08:30 05/27/18 09:00 Temperature 97.9 F Pulse Rate 85 100 H Respiratory Rate 17 Blood Pressure 125/64 Pulse Oximetry 100 100 05/27/18 10:00 05/27/18 11:00 05/27/18 11:37 Temperature 98 F Pulse Rate 105 H 109 H 103 H Respiratory Rate 16 Blood Pressure 134/74 Pulse Oximetry 99 05/27/18 12:00 05/27/18 12:55 05/27/18 13:00 Temperature Pulse Rate 108 H 105 H Respiratory Rate Blood Pressure Pulse Oximetry 100 05/27/18 13:45 Temperature Pulse Rate Respiratory Rate Blood Pressure Pulse Oximetry 97 Intake & Output 05/26/18 05/27/18 05/27/18 18:59 06:59 18:59 Intake Total 840 / 840 502.5 / 502.5 Output Total 550 / 550 250 / 250 Balance 290 / 290 252.5 / 252.5 Weight 73.6 kg Intake: IV 262.5 / 262.5 Vancomycin Inj 1,250 MG In NS 262.5 / 262.5 Inj 250 ML @ 250 mls/hr IV.SIG Q24H [facility] Rx#:[id number] Oral 840 / 840 240 / 240 Output: Urine Amount (Catheter) 550 / 550 250 / 250 Indwelling Urethral Catheter 550 / 550 250 / 250 Narrative: GENERAL: Elderly female in mild respiratory distress. CARDIOVASCULAR: Normal rate and regular rhythm without murmurs, gallops, or rubs. RESPIRATORY: Poor air movement. Diffuse rhonchi. GASTROINTESTINAL: Abdomen soft, non-tender, non-distended. Normal active bowel sounds MUSCULOSKELETAL: 2+ bilateral lower extremity edema NEURO: Alert & Oriented to self and place. Moves all ext x4 PSYCH: Appropriate mood and affect. - Urinary Catheter Management Indwelling Urethral Catheter Cath placed during this visit: yes Reason for continuing: Terminally ill/Comfort care Insertion date: 05/19/18 Results - Labs CBC & Chem 7: 05/27/18 11:23 05/27/18 11:23 Laboratory Results - last 24 hr 05/26/18 05/26/18 05/27/18 16:37 20:36 03:10 WBC RBC Hgb Hct MCV MCH MCHC RDW Plt Count MPV Sodium Potassium Chloride Carbon Dioxide Anion Gap BUN Creatinine Estimated GFR POC Glucose 405 H 359 H 101 Random Glucose Calcium 05/27/18 05/27/18 05/27/18 05:14 07:47 11:04 WBC RBC Hgb Hct MCV MCH MCHC RDW Plt Count MPV Sodium Potassium Chloride Carbon Dioxide Anion Gap BUN Creatinine 0.94 Estimated GFR 58 L POC Glucose 140 H 241 H Random Glucose Calcium 05/27/18 05/27/18 11:23 11:23 WBC 11.5 H RBC 3.75 L Hgb 11.4 L Hct 35.4 MCV 94.6 MCH 30.5 MCHC 32.3 RDW 17.3 H Plt Count 203 MPV 9.7 Sodium 143 Potassium 5.0 D Chloride 99 Carbon Dioxide 34.9 H Anion Gap 9 BUN 28 H Creatinine 1.00 Estimated GFR 54 L POC Glucose Random Glucose 241 H Calcium 8.6 Assessment and Plan - Plan 73-year-old female with: Acute respiratory failure secondary to COPD exacerbation/healthcare associated pneumonia/sepsis Patient with leukocytosis, elevated lactic acid, tachycardia and hypoxia. Chest x-ray significant for left base consolidation. Pulmonology consult appreciated. CT showed lower lobe atx vs consolidation and effusions. Still desaturating with minimal exertion. Repeat CXR 05/23 stable. -Continue Levaquin and vancomycin -Continue BiPAP/ NRB, wean as tolerated. She has been refusing BiPAP. -Duonebs standing and as needed. -IV Lasix 20 mg daily based on Is and Os. -PT daily, incentive spirometry. -the pt is DNR. Family initially open to hospice if the patient hasn't improved in a few days. Appreciate palliative care assistance. Hospice consulted for information discussed with the family. They declined hospice services at this point. -Follow-up chest x-ray in a.m. Aspiration Nursing concerned that the pt choked on her food 05/20. -diet per speech therapy. -antibiotics as above. Diabetes mellitus Has had episodes of hypoglycemia. -Sliding scale. -long acting insulin at low dose of 5 units daily. Adjust as needed. Edema S/t IVFs. -Lasix IV based on Is and Os. Acute kidney injury -Renal functions normalized -Monitor renal function while diuresing. -avoid nephrotoxins. PPx: Heparin Discharge Planning: Patient remains severely hypoxemic requiring nonrebreather. Family do not want to escalate care, wished to remain a DNR. Hospice services consulted but family is declining for now.
[2018-05-27] MEDS: Vancomycin Inj 1,250 MG in Sodium Chlor 0.9% Inj 250 ML IV.SIG SCH (14:47)
--- NOTE | 2018-05-27 17:32 | P.PN ---
Subjective Interval history: She remains belligerent. Refuses all attempts to give O2 or Labs. Physical Exam Vital signs: Vital Signs 05/26/18 18:00 05/26/18 19:00 05/26/18 19:16 Temperature Pulse Rate 103 H 98 H Respiratory Rate Blood Pressure Pulse Oximetry 99 05/26/18 20:00 05/26/18 21:00 05/26/18 22:00 Temperature 98.4 F Pulse Rate 94 H 92 H 86 Respiratory Rate 14 Blood Pressure 124/66 Pulse Oximetry 99 05/26/18 23:00 05/27/18 00:00 05/27/18 01:00 Temperature 98.2 F Pulse Rate 97 H 81 81 Respiratory Rate 16 Blood Pressure 121/66 Pulse Oximetry 100 05/27/18 02:00 05/27/18 03:00 05/27/18 04:00 Temperature 98.0 F Pulse Rate 82 91 H 89 Respiratory Rate 16 Blood Pressure 121/65 Pulse Oximetry 99 05/27/18 05:00 05/27/18 06:00 05/27/18 07:00 Temperature Pulse Rate 90 102 H 90 Respiratory Rate Blood Pressure Pulse Oximetry 05/27/18 08:00 05/27/18 08:30 05/27/18 09:00 Temperature 97.9 F Pulse Rate 85 100 H Respiratory Rate 17 Blood Pressure 125/64 Pulse Oximetry 100 100 05/27/18 10:00 05/27/18 11:00 05/27/18 11:37 Temperature 98 F Pulse Rate 105 H 109 H 103 H Respiratory Rate 16 Blood Pressure 134/74 Pulse Oximetry 99 05/27/18 12:00 05/27/18 12:55 05/27/18 13:00 Temperature Pulse Rate 108 H 105 H Respiratory Rate Blood Pressure Pulse Oximetry 100 05/27/18 13:45 05/27/18 14:00 05/27/18 15:00 Temperature Pulse Rate 101 H 100 H Respiratory Rate Blood Pressure Pulse Oximetry 97 05/27/18 16:00 Temperature 97.7 F Pulse Rate 104 H Respiratory Rate 18 Blood Pressure 126/59 L Pulse Oximetry 100 Intake & Output 05/26/18 05/27/18 05/27/18 18:59 06:59 18:59 Intake Total 840 / 840 502.5 / 502.5 262.5 / 262.5 Output Total 550 / 550 250 / 250 Balance 290 / 290 252.5 / 252.5 262.5 / 262.5 Weight 73.6 kg Intake: IV 262.5 / 262.5 262.5 / 262.5 Vancomycin Inj 1,250 MG In NS 262.5 / 262.5 262.5 / 262.5 Inj 250 ML @ 250 mls/hr IV.SIG Q24H [facility] Rx#:[id number] Oral 840 / 840 240 / 240 Output: Urine Amount (Catheter) 550 / 550 250 / 250 Indwelling Urethral Catheter 550 / 550 250 / 250 Narrative: GENERAL: Elderly female in no respiratory distress. CARDIOVASCULAR: Normal rate and regular rhythm without murmurs, gallops, or rubs. RESPIRATORY: Basal crackles and Diffuse rhonchi. GASTROINTESTINAL: Abdomen soft, non-tender, non-distended. Normal active bowel sounds MUSCULOSKELETAL: 1 + bilateral lower extremity edema NEURO: Confused and agitated. Moves all ext x4 PSYCH: very resistant to care. - Urinary Catheter Management Indwelling Urethral Catheter Cath placed during this visit: yes Reason for continuing: Terminally ill/Comfort care Insertion date: 05/19/18 Results - Labs CBC & Chem 7: 05/27/18 11:23 05/27/18 11:23 Laboratory Results - last 24 hr 05/26/18 05/27/18 05/27/18 20:36 03:10 05:14 WBC RBC Hgb Hct MCV MCH MCHC RDW Plt Count MPV Sodium Potassium Chloride Carbon Dioxide Anion Gap BUN Creatinine 0.94 Estimated GFR 58 L POC Glucose 359 H 101 Random Glucose Calcium 05/27/18 05/27/18 05/27/18 07:47 11:04 11:23 WBC 11.5 H RBC 3.75 L Hgb 11.4 L Hct 35.4 MCV 94.6 MCH 30.5 MCHC 32.3 RDW 17.3 H Plt Count 203 MPV 9.7 Sodium Potassium Chloride Carbon Dioxide Anion Gap BUN Creatinine Estimated GFR POC Glucose 140 H 241 H Random Glucose Calcium 05/27/18 05/27/18 11:23 17:04 WBC RBC Hgb Hct MCV MCH MCHC RDW Plt Count MPV Sodium 143 Potassium 5.0 D Chloride 99 Carbon Dioxide 34.9 H Anion Gap 9 BUN 28 H Creatinine 1.00 Estimated GFR 54 L POC Glucose 410 H Random Glucose 241 H Calcium 8.6 Assessment and Plan - Assessment (1) Aspiration pneumonia Code(s): J69.0 - Pneumonitis due to inhalation of food and vomit Status: Acute (2) Dementia Code(s): F03.90 - Unspecified dementia without behavioral disturbance Status: Acute (3) Sepsis Code(s): A41.9 - Sepsis, unspecified organism Status: Acute (4) Respiratory failure Code(s): J96.90 - Respiratory failure, unspecified, unspecified whether with hypoxia or hypercapnia Status: Acute (5) COPD exacerbation Code(s): J44.1 - Chronic obstructive pulmonary disease with (acute) exacerbation Status: Acute (6) Pneumonia Code(s): J18.9 - Pneumonia, unspecified organism Status: Acute - Plan 1. Continue antibiotics Levaquin 500 mg Daily 2. Duoneb nebs qid. 3. Wean O2 to N/C 5 L 4. Symbicort 160/4.5 mcg, 2puffs BID 5. BiPAP at HS 6. CXR today 7. CBC,BMP in am 8. D/C Vanco and get Sputum culture. (4) Respiratory failure Qualifiers: Chronicity: acute Respiratory failure complication: hypoxia Qualified Code(s ): J96.01 - Acute respiratory failure with hypoxia (6) Pneumonia Qualifiers: Pneumonia type: due to unspecified organism Laterality: left Lung location: lower lobe of lung Qualified Code(s): J18.1 - Lobar pneumonia, unspecified organism
--- NOTE | 2018-05-27 17:59 | XR ---
EXAM DATE: 05/27/2018 12:00 AM EDT AGE/SEX: 73 years / Female INDICATIONS: Short of breath. CLINICAL DATA: This is the patient's subsequent encounter. Patient reports that signs and symptoms h ave been present for 3 days and indicates a pain score of 0/10. MEDICAL/SURGICAL HISTORY: . Chronic obstructive pulmonary disease. Diabetes. Hypertension. Dem entia. None. COMPARISON: [facility] [place] 1[place] SING[place] AP, [place]/23/2018. . FINDINGS: Stable mild diffuse interstitial prominence. Mild patchy airspace disease in the left lung base. Card iac selected is enlarged. Pulmonary vascularity is within normal limits. Bony thorax is intact. CONCLUSION: 1. Stable senescent changes with mild patchy airspace disease in the left lung base which may reflec t atelectasis. Differential considerations include developing pneumonia or aspiration in the appropri ate clinical setting. 2. Compensated cardiomegaly. Electronically signed by: Leo Lowe MD 05/27/2018 5:57 PM EDT
[2018-05-27] MEDS: Mirtazapine 15 MG Tablet PO SCH (21:23)
[2018-05-27] MEDS: Melatonin 5 MG Tablet PO SCH (21:24)
[2018-05-27] MEDS: clonazePAM 0.5 MG Tablet PO PRN (21:34)
[2018-05-27 23:14] LABS: Bacteria,Urine Few /hpf; Bilirubin,Urine Negative (Negative); Clarity,Urine Turbid (Clear); Color,Urine Amber (Yellw/Straw); Glucose,Urine (UA) 500 or Greater mg/dL (Negative); Leukocyte Esterase,Urine Moderate (Negative); Mucus,Urine Few /lpf (Occasional); Nitrite,Urine Negative (Negative); Specific Gravity,Urine 1.023 (1.002-1.035); Squamous Epithelial Cell,Urine 2 /hpf (0-5)
--- NOTE | 2018-05-28 05:05 | XR ---
EXAM DATE: 05/28/2018 6:00 AM EDT AGE/SEX: 73 years / Female INDICATIONS: Shortness of breath CLINICAL DATA: This is the patient's subsequent encounter. Patient reports that signs and symptoms h ave been present for 4 - 6 days and indicates a pain score of 0/10. MEDICAL/SURGICAL HISTORY: Chronic obstructive pulmonary disease. Diabetes. Hypertension. None . COMPARISON: [facility], CHEST 1V SINGLE AP, 05/27/2018. . FINDINGS: Mild basilar airspace disease, left greater than right. No significant effusion. No pneumothorax. CONCLUSION: Mild basilar airspace disease, left greater than right. No significant effusion or pneumothorax. Electronically signed by: Kunal Bauer MD 05/28/2018 5:04 AM EDT
[2018-05-28 05:45] LABS: Hematocrit 35.9 % (35.0-46.0); Hemoglobin 11.6 gm/dL (11.6-15.3); Mean Corpuscular HGB Conc 32.5 % (32.0-36.0); Mean Corpuscular Hemoglobin 30.3 pg (27.0-34.0); Mean Corpuscular Volume 93.4 fL (80.0-100.0); Platelet Count 208 th/mm3 (150-450); Red Blood Count 3.84 mil/mm3 (4.00-5.30); Red Cell Distribution Width 17.1 % (11.6-17.2); White Blood Count 12.7 th/mm3 (4.0-11.0)
[2018-05-28] MEDS: Insulin NovoLOG Aspart Correctional Sugar Inj SQ SCH ×5 (05:53→20:26)
[2018-05-28 06:01] LABS: Calcium 8.6 mg/dL (8.5-10.1); Carbon Dioxide 33.1 meq/L (21.0-32.0); Potassium 4.4 meq/L (3.5-5.1)
[2018-05-28] MEDS: Senna/Docusate Sodium 8.6/50 MG Tablet PO SCH ×2 (10:35→20:18)
[2018-05-28] MEDS: amLODIPine 10 MG Tablet PO SCH (10:35)
[2018-05-28] MEDS: levoFLOXacin 500 MG Tablet PO SCH (10:35)
[2018-05-28] MEDS: Sertraline 100 MG Tablet PO SCH (10:36)
[2018-05-28] MEDS: Lisinopril 10 MG Tablet PO SCH (10:36)
[2018-05-28] MEDS: MethylPREDNISolone Sod Succinate Inj 40 MG/ML Vial IV.PUSH SCH (10:38)
[2018-05-28] MEDS: Insulin Detemir Inj 1,000 UNIT/10 ML Vial SQ SCH (10:39)
[2018-05-28] MEDS: Heparin - SQ 10,000 UNITS/ML Vial SQ SCH ×2 (10:39→22:59)
[2018-05-28] MEDS: Sodium Chloride 0.9% 2 ML Flush BID IV.FLUSH SCH ×2 (10:40→20:20)
--- NOTE | 2018-05-28 12:42 | P.PN ---
Subjective Interval history: She is stable and on O2 40 % Venti. No new complaints. Takes po diet well. CXR is stable. Physical Exam Vital signs: Vital Signs 05/27/18 12:55 05/27/18 13:00 05/27/18 13:45 Temperature Pulse Rate 105 H Respiratory Rate Blood Pressure Pulse Oximetry 100 97 05/27/18 14:00 05/27/18 15:00 05/27/18 16:00 Temperature 97.7 F Pulse Rate 101 H 100 H 104 H Respiratory Rate 18 Blood Pressure 126/59 L Pulse Oximetry 100 05/27/18 17:00 05/27/18 17:43 05/27/18 19:00 Temperature Pulse Rate 108 H 107 H 99 H Respiratory Rate Blood Pressure Pulse Oximetry 05/27/18 20:00 05/27/18 21:00 05/27/18 22:00 Temperature 98.3 F Pulse Rate 99 H 91 H 91 H Respiratory Rate 18 Blood Pressure 119/60 Pulse Oximetry 100 05/27/18 23:00 05/28/18 00:00 05/28/18 02:00 Temperature 98.2 F Pulse Rate 91 H 91 H 91 H Respiratory Rate 18 Blood Pressure 112/58 L Pulse Oximetry 97 05/28/18 03:00 05/28/18 04:00 05/28/18 05:00 Temperature 98.1 F Pulse Rate 90 89 90 Respiratory Rate 18 Blood Pressure 118/60 Pulse Oximetry 89 L 05/28/18 05:21 05/28/18 08:00 Temperature Pulse Rate 89 Respiratory Rate Blood Pressure Pulse Oximetry 94 L Intake & Output 05/27/18 05/28/18 05/28/18 18:59 06:59 18:59 Intake Total 1292.5 / 1292.5 360 / 360 Output Total 1000 / 1000 300 / 300 Balance 292.5 / 292.5 60 / 60 Weight 73.1 kg Intake: IV 262.5 / 262.5 Vancomycin Inj 1,250 MG In NS 262.5 / 262.5 Inj 250 ML @ 250 mls/hr IV.SIG Q24H [facility] Rx#:[id number] Oral 1030 / 1030 360 / 360 Output: Urine 300 / 300 Urine Amount (Catheter) 1000 / 1000 Indwelling Urethral Catheter 1000 / 1000 Other: Date of Last Bowel Movement 05/23/18 Narrative: GENERAL: Elderly female in no respiratory distress. CARDIOVASCULAR: Normal rate and regular rhythm without murmurs, gallops, or rubs. RESPIRATORY: Few Basal crackles and occ rhonchi. GASTROINTESTINAL: Abdomen soft, non-tender, non-distended. Normal active bowel sounds MUSCULOSKELETAL: 1 + bilateral lower extremity edema NEURO: Confused and calm. Moves all ext x4 PSYCH: hostile. - Urinary Catheter Management Indwelling Urethral Catheter Cath placed during this visit: yes Reason for continuing: Terminally ill/Comfort care Insertion date: 05/19/18 Results - Labs CBC & Chem 7: 05/28/18 05:07 05/28/18 05:07 Laboratory Results - last 24 hr 05/27/18 05/27/18 05/27/18 17:04 20:17 22:48 WBC RBC Hgb Hct MCV MCH MCHC RDW Plt Count MPV Sodium Potassium Chloride Carbon Dioxide Anion Gap BUN Creatinine Estimated GFR POC Glucose 410 H 275 H Random Glucose Calcium Urine Color [place] Urine Clarity Turbid H Urine pH 5.0 Ur Specific [place] 1.023 Urine Protein 100 H Urine Glucose (UA) 500 or greater Urine Ketones Negative Urine Occult Blood Large H Urine Nitrate Negative Urine Bilirubin Negative Urine Urobilinogen Less than 2 Ur Leukocyte Esterase Moderate H Urine RBC Urine WBC Ur Squamous Epith Cells 2 Urine Bacteria Few H Urine Mucus Few H Urine Yeast Many H Micro UA Comment Cath-culture ind Ur Microscopic Review Not Reportable Urine Culture Comments Cath-cult indicated 05/28/18 05/28/18 05/28/18 05:03 05:07 05:07 WBC 12.7 H RBC 3.84 L Hgb 11.6 Hct 35.9 MCV 93.4 MCH 30.3 MCHC 32.5 RDW 17.1 Plt Count 208 MPV 10.0 Sodium 143 Potassium 4.4 Chloride 102 Carbon Dioxide 33.1 H Anion Gap 8 BUN 33 H Creatinine 1.03 H Estimated GFR 52 L POC Glucose 107 Random Glucose 116 H D Calcium 8.6 Urine Color Urine Clarity Urine pH Ur Specific [place] Urine Protein Urine Glucose (UA) Urine Ketones Urine Occult Blood Urine Nitrate Urine Bilirubin Urine Urobilinogen Ur Leukocyte Esterase Urine RBC Urine WBC Ur Squamous Epith Cells Urine Bacteria Urine Mucus Urine Yeast Micro UA Comment Ur Microscopic Review Urine Culture Comments 05/28/18 05/28/18 08:12 11:51 WBC RBC Hgb Hct MCV MCH MCHC RDW Plt Count MPV Sodium Potassium Chloride Carbon Dioxide Anion Gap BUN Creatinine Estimated GFR POC Glucose 146 H 193 H Random Glucose Calcium Urine Color Urine Clarity Urine pH Ur Specific [place] Urine Protein Urine Glucose (UA) Urine Ketones Urine Occult Blood Urine Nitrate Urine Bilirubin Urine Urobilinogen Ur Leukocyte Esterase Urine RBC Urine WBC Ur Squamous Epith Cells Urine Bacteria Urine Mucus Urine Yeast Micro UA Comment Ur Microscopic Review Urine Culture Comments - Imaging Impressions Chest X-Ray 05/27/18 00:00 CONCLUSION: 1. Stable senescent changes with mild patchy airspace disease in the left lung base which may reflect atelectasis. Differential considerations include developing pneumonia or aspiration in the appropriate clinical setting. 2. Compensated cardiomegaly. Chest X-Ray 05/28/18 06:00 CONCLUSION: Mild basilar airspace disease, left greater than right. No significant effusion or pneumothorax. Assessment and Plan - Assessment (1) Aspiration pneumonia Code(s): J69.0 - Pneumonitis due to inhalation of food and vomit Status: Acute (2) Dementia Code(s): F03.90 - Unspecified dementia without behavioral disturbance Status: Acute (3) Sepsis Code(s): A41.9 - Sepsis, unspecified organism Status: Acute (4) Respiratory failure Code(s): J96.90 - Respiratory failure, unspecified, unspecified whether with hypoxia or hypercapnia Status: Acute (5) COPD exacerbation Code(s): J44.1 - Chronic obstructive pulmonary disease with (acute) exacerbation Status: Acute (6) Pneumonia Code(s): J18.9 - Pneumonia, unspecified organism Status: Acute - Plan 1. Continue antibiotics Levaquin 500 mg Daily 2. Duoneb nebs qid. 3. Wean O2 to N/C 4 L 4. Symbicort 160/4.5 mcg, 2puffs BID 5. BiPAP at HS if tolerated. 6. D/C solumedrol. 7. CBC,BMP in am 8. Add Prednisone 10 mg PO BID (4) Respiratory failure Qualifiers: Chronicity: acute Respiratory failure complication: hypoxia Qualified Code(s ): J96.01 - Acute respiratory failure with hypoxia (6) Pneumonia Qualifiers: Pneumonia type: due to unspecified organism Laterality: left Lung location: lower lobe of lung Qualified Code(s): J18.1 - Lobar pneumonia, unspecified organism
--- NOTE | 2018-05-28 16:55 | P.PNIM ---
Subjective Interval history: Patient continues to require 40% on a Ventimask. Discussed with RN. Have not been able to wean her down. She still refuses BiPAP at night. Physical Exam Vital signs: Vital Signs 05/27/18 17:00 05/27/18 17:43 05/27/18 19:00 Temperature Pulse Rate 108 H 107 H 99 H Respiratory Rate Blood Pressure Pulse Oximetry 05/27/18 20:00 05/27/18 21:00 05/27/18 22:00 Temperature 98.3 F Pulse Rate 99 H 91 H 91 H Respiratory Rate 18 Blood Pressure 119/60 Pulse Oximetry 100 05/27/18 23:00 05/28/18 00:00 05/28/18 02:00 Temperature 98.2 F Pulse Rate 91 H 91 H 91 H Respiratory Rate 18 Blood Pressure 112/58 L Pulse Oximetry 97 05/28/18 03:00 05/28/18 04:00 05/28/18 05:00 Temperature 98.1 F Pulse Rate 90 89 90 Respiratory Rate 18 Blood Pressure 118/60 Pulse Oximetry 89 L 05/28/18 05:21 05/28/18 08:00 05/28/18 14:04 Temperature Pulse Rate 89 110 H Respiratory Rate 22 Blood Pressure Pulse Oximetry 94 L Intake & Output 05/27/18 05/28/18 05/28/18 18:59 06:59 18:59 Intake Total 1292.5 / 1292.5 360 / 360 Output Total 1000 / 1000 300 / 300 Balance 292.5 / 292.5 60 / 60 Weight 73.1 kg Intake: IV 262.5 / 262.5 Vancomycin Inj 1,250 MG In NS 262.5 / 262.5 Inj 250 ML @ 250 mls/hr IV.SIG Q24H [facility] Rx#:[id number] Oral 1030 / 1030 360 / 360 Output: Urine 300 / 300 Urine Amount (Catheter) 1000 / 1000 Indwelling Urethral Catheter 1000 / 1000 Other: Date of Last Bowel Movement 05/23/18 Narrative: GENERAL: Elderly female in no respiratory distress. CARDIOVASCULAR: Normal rate and regular rhythm without murmurs, gallops, or rubs. RESPIRATORY: Air movement is fair. Few Basal crackles and occ rhonchi. GASTROINTESTINAL: Abdomen soft, non-tender, non-distended. Normal active bowel sounds MUSCULOSKELETAL: 1 + bilateral lower extremity edema PSYCH: Easily irritable - Urinary Catheter Management Indwelling Urethral Catheter Cath placed during this visit: yes Reason for continuing: Terminally ill/Comfort care Insertion date: 05/19/18 Results - Labs CBC & Chem 7: 05/28/18 05:07 05/28/18 05:07 Laboratory Results - last 24 hr 05/27/18 05/27/18 05/27/18 17:04 20:17 22:48 WBC RBC Hgb Hct MCV MCH MCHC RDW Plt Count MPV Sodium Potassium Chloride Carbon Dioxide Anion Gap BUN Creatinine Estimated GFR POC Glucose 410 H 275 H Random Glucose Calcium Urine Color [place] Urine Clarity Turbid H Urine pH 5.0 Ur Specific [place] 1.023 Urine Protein 100 H Urine Glucose (UA) 500 or greater Urine Ketones Negative Urine Occult Blood Large H Urine Nitrate Negative Urine Bilirubin Negative Urine Urobilinogen Less than 2 Ur Leukocyte Esterase Moderate H Urine RBC Urine WBC Ur Squamous Epith Cells 2 Urine Bacteria Few H Urine Mucus Few H Urine Yeast Many H Micro UA Comment Cath-culture ind Ur Microscopic Review Not Reportable Urine Culture Comments Cath-cult indicated 05/28/18 05/28/18 05/28/18 05:03 05:07 05:07 WBC 12.7 H RBC 3.84 L Hgb 11.6 Hct 35.9 MCV 93.4 MCH 30.3 MCHC 32.5 RDW 17.1 Plt Count 208 MPV 10.0 Sodium 143 Potassium 4.4 Chloride 102 Carbon Dioxide 33.1 H Anion Gap 8 BUN 33 H Creatinine 1.03 H Estimated GFR 52 L POC Glucose 107 Random Glucose 116 H D Calcium 8.6 Urine Color Urine Clarity Urine pH Ur Specific [place] Urine Protein Urine Glucose (UA) Urine Ketones Urine Occult Blood Urine Nitrate Urine Bilirubin Urine Urobilinogen Ur Leukocyte Esterase Urine RBC Urine WBC Ur Squamous Epith Cells Urine Bacteria Urine Mucus Urine Yeast Micro UA Comment Ur Microscopic Review Urine Culture Comments 05/28/18 05/28/18 08:12 11:51 WBC RBC Hgb Hct MCV MCH MCHC RDW Plt Count MPV Sodium Potassium Chloride Carbon Dioxide Anion Gap BUN Creatinine Estimated GFR POC Glucose 146 H 193 H Random Glucose Calcium Urine Color Urine Clarity Urine pH Ur Specific [place] Urine Protein Urine Glucose (UA) Urine Ketones Urine Occult Blood Urine Nitrate Urine Bilirubin Urine Urobilinogen Ur Leukocyte Esterase Urine RBC Urine WBC Ur Squamous Epith Cells Urine Bacteria Urine Mucus Urine Yeast Micro UA Comment Ur Microscopic Review Urine Culture Comments - Imaging Impressions Chest X-Ray 05/27/18 00:00 CONCLUSION: 1. Stable senescent changes with mild patchy airspace disease in the left lung base which may reflect atelectasis. Differential considerations include developing pneumonia or aspiration in the appropriate clinical setting. 2. Compensated cardiomegaly. Chest X-Ray 05/28/18 06:00 CONCLUSION: Mild basilar airspace disease, left greater than right. No significant effusion or pneumothorax. Assessment and Plan - Plan 73-year-old female with: Acute respiratory failure secondary to COPD exacerbation/healthcare associated pneumonia/sepsis Patient with leukocytosis, elevated lactic acid, tachycardia and hypoxia. Chest x-ray significant for left base consolidation. Pulmonology consult appreciated. CT showed lower lobe atx vs consolidation and effusions. Still desaturating with minimal exertion. Repeat CXR 05/23 stable. -Continue Levaquin and vancomycin -Continue BiPAP/ NRB, wean as tolerated. She has been refusing BiPAP. -Duonebs standing and as needed. -IV Lasix 20 mg daily based on Is and Os. -PT daily, incentive spirometry. -the pt is DNR. Family initially open to hospice if the patient hasn't improved in a few days. Appreciate palliative care assistance. Hospice consulted for information discussed with the family. They declined hospice services at this point. - Prednisone added per pulmonology. - Continue to wean down oxygen as tolerated. Aspiration Nursing concerned that the pt choked on her food 05/20. -diet per speech therapy. -antibiotics as above. Diabetes mellitus Has had episodes of hypoglycemia. -Sliding scale. -long acting insulin at low dose of 5 units daily. Adjust as needed. Edema S/t IVFs. -Lasix IV based on Is and Os. Acute kidney injury -Renal functions normalized -Monitor renal function while diuresing. -avoid nephrotoxins. PPx: Heparin Discharge Planning: Patient remains severely hypoxemic requiring nonrebreather. Family do not want to escalate care, wished to remain a DNR. Hospice services consulted but family is declining for now. If she can be weaned down to nasal cannula, she can return to the nursing facility.
[2018-05-28] MEDS: Mirtazapine 15 MG Tablet PO SCH (20:18)
[2018-05-28] MEDS: predniSONE 10 MG Tablet PO SCH (20:20)
[2018-05-28] MEDS: Melatonin 5 MG Tablet PO SCH (20:20)
[2018-05-29] MEDS: Insulin NovoLOG Aspart Correctional Sugar Inj SQ SCH ×5 (03:32→21:01)
[2018-05-29] MEDS: levoFLOXacin 500 MG Tablet PO SCH (08:42)
[2018-05-29] MEDS: Sertraline 100 MG Tablet PO SCH (08:42)
[2018-05-29] MEDS: Lisinopril 10 MG Tablet PO SCH (08:42)
[2018-05-29] MEDS: Senna/Docusate Sodium 8.6/50 MG Tablet PO SCH ×2 (08:42→21:00)
[2018-05-29] MEDS: predniSONE 10 MG Tablet PO SCH ×2 (08:42→21:00)
[2018-05-29] MEDS: amLODIPine 10 MG Tablet PO SCH (08:42)
[2018-05-29] MEDS: Insulin Detemir Inj 1,000 UNIT/10 ML Vial SQ SCH (08:43)
[2018-05-29] MEDS: Sodium Chloride 0.9% 2 ML Flush BID IV.FLUSH SCH ×2 (08:43→21:01)
[2018-05-29] MEDS: Heparin - SQ 10,000 UNITS/ML Vial SQ SCH ×2 (10:40→22:43)
--- NOTE | 2018-05-29 10:53 | P.PNIM ---
Subjective Interval history: Patient reports feeling better today. She is down to 6 L on a nasal cannula. Breathing more comfortably. Physical Exam Vital signs: Vital Signs 05/28/18 12:00 05/28/18 14:04 05/28/18 16:00 Temperature 98.5 F 97.5 F L Pulse Rate 57 L 110 H 105 H Respiratory Rate 18 22 20 Blood Pressure 140/68 135/60 Pulse Oximetry 86 L 91 L 05/28/18 19:00 05/28/18 20:00 05/28/18 20:38 Temperature 98.3 F Pulse Rate 108 H 106 H Respiratory Rate 20 Blood Pressure 125/69 Pulse Oximetry 88 L 92 L 05/28/18 21:00 05/28/18 22:00 05/28/18 23:00 Temperature Pulse Rate 100 H 98 H 94 H Respiratory Rate Blood Pressure Pulse Oximetry 05/29/18 00:00 05/29/18 01:00 05/29/18 02:00 Temperature 98.5 F Pulse Rate 95 H 92 H 92 H Respiratory Rate 20 Blood Pressure 121/71 Pulse Oximetry 95 05/29/18 03:00 05/29/18 04:00 05/29/18 05:00 Temperature 98.5 F Pulse Rate 100 H 98 H 92 H Respiratory Rate 20 Blood Pressure 145/78 H Pulse Oximetry 95 05/29/18 06:00 05/29/18 07:00 05/29/18 08:00 Temperature 98.0 F Pulse Rate 89 90 95 H Respiratory Rate 16 Blood Pressure 135/73 Pulse Oximetry 97 Intake & Output 05/28/18 05/29/18 05/29/18 18:59 06:59 18:59 Intake Total 360 / 360 Output Total 300 / 300 1350 / 1350 Balance 60 / 60 -1350 / -1350 Weight 73.1 kg Intake: Oral 360 / 360 Output: Urine 300 / 300 Urine Amount (Catheter) 1350 / 1350 Indwelling Urethral Catheter 1350 / 1350 Other: Date of Last Bowel Movement 05/23/18 05/24/18 05/24/18 # Bowel Movements 0 # Incontinent Bowel Movements 0 Narrative: GENERAL: Elderly female in no respiratory distress. CARDIOVASCULAR: Normal rate and regular rhythm without murmurs, gallops, or rubs. RESPIRATORY: Air movement is fair. Bibasilar crackles and occ rhonchi. GASTROINTESTINAL: Abdomen soft, non-tender, non-distended. Normal active bowel sounds MUSCULOSKELETAL: 1 + bilateral lower extremity edema PSYCH: Calm - Urinary Catheter Management Indwelling Urethral Catheter Cath placed during this visit: yes Reason for continuing: Terminally ill/Comfort care Insertion date: 05/19/18 Results - Labs CBC & Chem 7: 05/28/18 05:07 05/28/18 05:07 Laboratory Results - last 24 hr 05/28/18 05/28/18 05/28/18 11:51 17:20 20:15 POC Glucose 193 H 365 H 312 H 05/29/18 05/29/18 03:21 07:24 POC Glucose 245 H 409 H Microbiology 05/27/18 22:48 Catheterized Urine Urine Culture - Final [place] albicans Assessment and Plan - Plan 73-year-old female with: Acute respiratory failure secondary to COPD exacerbation/healthcare associated pneumonia/sepsis Patient with leukocytosis, elevated lactic acid, tachycardia and hypoxia. Chest x-ray significant for left base consolidation. Pulmonology consult appreciated. CT showed lower lobe atx vs consolidation and effusions. Still desaturating with minimal exertion. Repeat CXR 05/23 stable. -Continue Levaquin -Continue BiPAP/ NRB, wean as tolerated. She has been refusing BiPAP. -Duonebs standing and as needed. -IV Lasix 20 mg daily based on Is and Os. -PT daily, incentive spirometry. -the pt is DNR. . Patient and family declined hospice services at this point. -Continue prednisone per pulmonology. - Continue to wean down oxygen as tolerated. Slight improvement. Aspiration Nursing concerned that the pt choked on her food 05/20. -diet per speech therapy. -antibiotics as above. Diabetes mellitus Has had episodes of hypoglycemia. -Sliding scale. -long acting insulin at low dose of 5 units daily. Adjust as needed. Edema S/t IVFs. -Lasix IV based on Is and Os. Acute kidney injury -Renal functions normalized -Monitor renal function while diuresing. -avoid nephrotoxins. PPx: Heparin Discharge Planning: Patient remains severely hypoxemic. Continue to wean down oxygen. Can return to nursing facility when she is more stable.
--- NOTE | 2018-05-29 19:30 | P.PN ---
Subjective Interval history: Now on 4 L o2 and sats are 92. Confused and pulls at O2. No SOB at rest. Physical Exam Vital signs: Vital Signs 05/28/18 20:00 05/28/18 20:38 05/28/18 21:00 Temperature 98.3 F Pulse Rate 106 H 100 H Respiratory Rate 20 Blood Pressure 125/69 Pulse Oximetry 88 L 92 L 05/28/18 22:00 05/28/18 23:00 05/29/18 00:00 Temperature 98.5 F Pulse Rate 98 H 94 H 95 H Respiratory Rate 20 Blood Pressure 121/71 Pulse Oximetry 95 05/29/18 01:00 05/29/18 02:00 05/29/18 03:00 Temperature Pulse Rate 92 H 92 H 100 H Respiratory Rate Blood Pressure Pulse Oximetry 05/29/18 04:00 05/29/18 05:00 05/29/18 06:00 Temperature 98.5 F Pulse Rate 98 H 92 H 89 Respiratory Rate 20 Blood Pressure 145/78 H Pulse Oximetry 95 05/29/18 07:00 05/29/18 08:00 05/29/18 09:00 Temperature 98.0 F Pulse Rate 90 96 H 96 H Respiratory Rate 16 Blood Pressure 135/73 Pulse Oximetry 97 05/29/18 10:00 05/29/18 11:00 05/29/18 12:00 Temperature 98.2 F Pulse Rate 100 H 84 90 Respiratory Rate 18 Blood Pressure 119/64 Pulse Oximetry 99 05/29/18 13:00 05/29/18 14:00 05/29/18 15:00 Temperature Pulse Rate 94 H 95 H 95 H Respiratory Rate Blood Pressure Pulse Oximetry 05/29/18 16:00 05/29/18 17:00 05/29/18 18:00 Temperature 98.0 F Pulse Rate 95 H 99 H 99 H Respiratory Rate 18 Blood Pressure 152/76 H Pulse Oximetry 96 05/29/18 18:31 Temperature Pulse Rate Respiratory Rate 22 Blood Pressure Pulse Oximetry Intake & Output 05/29/18 05/29/18 05/30/18 06:59 18:59 06:59 Intake Total 720 / 720 Output Total 1350 / 1350 800 / 800 Balance -1350 / -1350 -80 / -80 Weight 73.1 kg Intake: Oral 720 / 720 Output: Urine Amount (Catheter) 1350 / 1350 800 / 800 Indwelling Urethral Catheter 1350 / 1350 800 / 800 Other: Date of Last Bowel Movement 05/24/18 05/24/18 Narrative: GENERAL: Elderly female in no respiratory distress.On O2 N/C CARDIOVASCULAR: Normal rate and regular rhythm without murmurs, gallops, or rubs. RESPIRATORY: Air movement poor with Bibasilar crackles and occ wheeze. GASTROINTESTINAL: Abdomen soft, non-tender, non-distended. Normal active bowel sounds MUSCULOSKELETAL: 1 + bilateral lower extremity edema PSYCH: Calm today. Neuro : No deficits. - Urinary Catheter Management Indwelling Urethral Catheter Cath placed during this visit: yes, but has since been removed by the nurse Reason for continuing: Decision to DC catheter Insertion date: 05/19/18 Removal date: 05/29/18 Removal time: 16:29 Results - Labs CBC & Chem 7: 05/28/18 05:07 05/28/18 05:07 Laboratory Results - last 24 hr 05/28/18 05/29/18 05/29/18 20:15 03:21 07:24 POC Glucose 312 H 245 H 409 H 05/29/18 05/29/18 11:19 16:57 POC Glucose 305 H 189 H Microbiology 05/27/18 22:48 Catheterized Urine Urine Culture - Final Mone albicans Assessment and Plan - Assessment (1) Aspiration pneumonia Code(s): J69.0 - Pneumonitis due to inhalation of food and vomit Status: Acute (2) Dementia Code(s): F03.90 - Unspecified dementia without behavioral disturbance Status: Acute (3) Sepsis Code(s): A41.9 - Sepsis, unspecified organism Status: Acute (4) Respiratory failure Code(s): J96.90 - Respiratory failure, unspecified, unspecified whether with hypoxia or hypercapnia Status: Acute (5) COPD exacerbation Code(s): J44.1 - Chronic obstructive pulmonary disease with (acute) exacerbation Status: Acute (6) Pneumonia Code(s): J18.9 - Pneumonia, unspecified organism Status: Acute - Plan 1. Continue antibiotics Levaquin 500 mg Daily X3 2. Duoneb nebs qid. 3. Wean O2 to N/C 4 L 4. Symbicort 160/4.5 mcg, 2puffs BID 5. D/C BiPAP since she refuses. 6. OK to trasfer to intermediate if stable on 4 L O2 7.Cont Prednisone 10 mg PO BID (4) Respiratory failure Qualifiers: Chronicity: acute Respiratory failure complication: hypoxia Qualified Code(s ): J96.01 - Acute respiratory failure with hypoxia (6) Pneumonia Qualifiers: Pneumonia type: due to unspecified organism Laterality: left Lung location: lower lobe of lung Qualified Code(s): J18.1 - Lobar pneumonia, unspecified organism
[2018-05-29] MEDS: Mirtazapine 15 MG Tablet PO SCH (21:00)
[2018-05-29] MEDS: Melatonin 5 MG Tablet PO SCH (21:00)
[2018-05-30] MEDS: Insulin NovoLOG Aspart Correctional Sugar Inj SQ SCH ×4 (03:45→17:36)
[2018-05-30] MEDS: Lisinopril 10 MG Tablet PO SCH (08:08)
[2018-05-30] MEDS: amLODIPine 10 MG Tablet PO SCH (08:08)
[2018-05-30] MEDS: predniSONE 10 MG Tablet PO SCH (08:08)
[2018-05-30] MEDS: levoFLOXacin 500 MG Tablet PO SCH (08:08)
[2018-05-30] MEDS: Insulin Detemir Inj 1,000 UNIT/10 ML Vial SQ SCH (08:09)
[2018-05-30] MEDS: Sertraline 100 MG Tablet PO SCH (08:09)
[2018-05-30] MEDS: Senna/Docusate Sodium 8.6/50 MG Tablet PO SCH (08:09)
[2018-05-30] MEDS: Sodium Chloride 0.9% 2 ML Flush BID IV.FLUSH SCH (10:29)
--- NOTE | 2018-05-30 12:26 | P.DS ---
Date of admission: 05/18/18 22:09 Primary care physician: Carlos Broussard MD Brief History from admission: HPI from the admitting physician: 73-year-old female with past medical history significant for COPD, dementia, diabetes mellitus, hypertension and rheumatoid arthritis presents to the emergency department for increased work of breathing and confusion. The patient 's daughter reports that staff from her shelter facility called and stated that her mother had been confused, short of breath and had increased work of breathing despite multiple breathing treatments at the correction. The patient denies any fever/chills. No chest pain. No abdominal pain. No nausea/vomiting/diarrhea. No lateralizing signs/symptoms. Cough is at baseline. Patient remains hypoxic despite 8 L nasal cannula and was placed on BiPAP in the emergency department with good response. Patient update on day of discharge: Patient continued to improve today. She is down to 4 L nasal cannula. States she is more comfortable. Agreeable to returning at the shelter facility. DS: Diagnosis - Discharge Diagnosis (1) Respiratory failure Status: Acute (2) COPD exacerbation Status: Acute (3) Pneumonia Status: Acute (4) Aspiration pneumonia Status: Acute (5) Dementia Status: Acute (6) Sepsis Status: Acute DS: Medications - Discharge Medications Prescriptions: fluconazole 200 mg PO DAILY 14 Days #14 tab levofloxacin 500 mg PO DAILY #3 tab DS: Summary Hospital Course: 73-year-old female admitted and treated for the following: Acute respiratory failure secondary to COPD exacerbation/healthcare associated pneumonia/sepsis Patient with leukocytosis, elevated lactic acid, tachycardia and hypoxia. Chest x-ray significant for left base consolidation. Pulmonology consult appreciated. CT showed lower lobe atx vs consolidation and effusions. Still desaturating with minimal exertion. Repeat CXR 05/23 stable. Patient was treated with antibiotics, diuretics. She was followed by pulmonology and was given breathing treatments, steroids and offered BiPAP which she refused. It was difficult to wean her off her nonrebreather. Her respiratory status slowly improved and she was down to 4 L on a nasal cannula by the time of discharge. She will continue antibiotics for couple more days. Aspiration Nursing concerned that the pt choked on her food 05/20. -diet per speech therapy. -antibiotics as above. Diabetes mellitus Has had episodes of hypoglycemia. -Sliding scale. -long acting insulin at low dose of 5 units daily. Adjusted Acute kidney injury -Renal functions normalized - Time Spent with Patient Total time spent providing and/or coordinating discharge services: Greater than 30 minutes - Quality: VTE Deep Vein Thrombosis/Pulmonary Embolism Present on Admission: No Exam Vital signs: Vital Signs 05/29/18 13:00 05/29/18 14:00 05/29/18 15:00 Temperature Pulse Rate 94 H 95 H 95 H Respiratory Rate Blood Pressure Pulse Oximetry 05/29/18 16:00 05/29/18 17:00 05/29/18 18:00 Temperature 98.0 F Pulse Rate 95 H 99 H 99 H Respiratory Rate 18 Blood Pressure 152/76 H Pulse Oximetry 96 05/29/18 18:31 05/29/18 19:00 05/29/18 20:00 Temperature 97.6 F Pulse Rate 96 H 96 H Respiratory Rate 22 22 Blood Pressure 127/65 Pulse Oximetry 91 L 05/29/18 21:00 05/29/18 22:00 05/29/18 22:20 Temperature Pulse Rate 102 H 92 H Respiratory Rate Blood Pressure Pulse Oximetry 92 L 05/29/18 23:00 05/29/18 23:31 05/30/18 00:00 Temperature 98.2 F Pulse Rate 86 91 H 84 Respiratory Rate 22 Blood Pressure 161/82 H Pulse Oximetry 96 05/30/18 01:00 05/30/18 02:00 05/30/18 03:00 Temperature Pulse Rate 85 82 79 Respiratory Rate Blood Pressure Pulse Oximetry 05/30/18 04:00 05/30/18 05:00 05/30/18 06:00 Temperature 98.5 F Pulse Rate 96 H 96 H 100 H Respiratory Rate 20 Blood Pressure 139/89 Pulse Oximetry 95 05/30/18 07:00 05/30/18 08:00 05/30/18 09:00 Temperature 98.1 F Pulse Rate 100 H 108 H 120 H Respiratory Rate 18 Blood Pressure 161/86 H Pulse Oximetry 94 L 05/30/18 10:00 Temperature Pulse Rate 84 Respiratory Rate Blood Pressure Pulse Oximetry Intake & Output 05/29/18 05/30/18 05/30/18 18:59 06:59 18:59 Intake Total 720 / 720 240 / 240 Output Total 800 / 800 Balance -80 / -80 240 / 240 Weight 73.2 kg Intake: Oral 720 / 720 240 / 240 Output: Urine Amount (Catheter) 800 / 800 Indwelling Urethral Catheter 800 / 800 Other: # Incontinent Voids 1 Date of Last Bowel Movement 05/24/18 Narrative: GENERAL: Elderly female in no respiratory distress. CARDIOVASCULAR: Normal rate and regular rhythm without murmurs, gallops, or rubs. RESPIRATORY: Air movement is fair. Bibasilar crackles and occ rhonchi. GASTROINTESTINAL: Abdomen soft, non-tender, non-distended. Normal active bowel sounds MUSCULOSKELETAL: 1 + bilateral lower extremity edema PSYCH: Calm Results Procedures completed during hospitalization: None Labs on day of discharge: Labs from last 24 hours 05/30/18 05/30/18 05/30/18 12:06 07:48 03:43 POC Glucose 169 H 206 H 224 H 05/29/18 05/29/18 20:57 16:57 POC Glucose 343 H 189 H - Impressions ITS Impressions Abdomen/Bladder Ultrasound 05/20/18 00:00 CONCLUSION: 1. Small echogenic kidneys consistent with probable medical renal disease. Chest CT 05/21/18 00:00 CONCLUSION: Bilateral lower lobe atelectasis versus pneumonia. Small bilateral effusions Chest X-Ray 05/28/18 06:00 CONCLUSION: Mild basilar airspace disease, left greater than right. No significant effusion or pneumothorax. Discharge Plan - Discharge Disposition Patient Disposition: Discharge to SNF - Discharge Condition Condition: Stable - Discharge Order Discharge Orders: Discharge Order (Routine); Ordered 05/30/18 Ordered By: Chasidy Harley - Physicians Team Primary Care Provider: Carlos Broussard Attending Provider: Chasidy Harley Other Providers: Rehab,[facility] ; Kyler Emmanuel MD ; Andrew Cohen MD
[2018-05-30] MEDS: Heparin - SQ 10,000 UNITS/ML Vial SQ SCH (12:44)
[2018-05-30 13:07] VITALS: TEMP 98
--- NOTE | 2018-05-30 14:43 | P.PN ---
Subjective Interval history: She is stable but is incontinent and needs a Burch cath. Has perineal rash due to Mone. Alert and on O2 4 l and sats are 95. Physical Exam Vital signs: Vital Signs 05/29/18 15:00 05/29/18 16:00 05/29/18 17:00 Temperature 98.0 F Pulse Rate 95 H 95 H 99 H Respiratory Rate 18 Blood Pressure 152/76 H Pulse Oximetry 96 05/29/18 18:00 05/29/18 18:31 05/29/18 19:00 Temperature Pulse Rate 99 H 96 H Respiratory Rate 22 Blood Pressure Pulse Oximetry 05/29/18 20:00 05/29/18 21:00 05/29/18 22:00 Temperature 97.6 F Pulse Rate 96 H 102 H 92 H Respiratory Rate 22 Blood Pressure 127/65 Pulse Oximetry 91 L 05/29/18 22:20 05/29/18 23:00 05/29/18 23:31 Temperature 98.2 F Pulse Rate 86 91 H Respiratory Rate 22 Blood Pressure 161/82 H Pulse Oximetry 92 L 96 05/30/18 00:00 05/30/18 01:00 05/30/18 02:00 Temperature Pulse Rate 84 85 82 Respiratory Rate Blood Pressure Pulse Oximetry 05/30/18 03:00 05/30/18 04:00 05/30/18 05:00 Temperature 98.5 F Pulse Rate 79 96 H 96 H Respiratory Rate 20 Blood Pressure 139/89 Pulse Oximetry 95 05/30/18 06:00 05/30/18 07:00 05/30/18 08:00 Temperature 98.1 F Pulse Rate 100 H 100 H 108 H Respiratory Rate 18 Blood Pressure 161/86 H Pulse Oximetry 94 L 05/30/18 09:00 05/30/18 10:00 05/30/18 11:00 Temperature Pulse Rate 120 H 84 83 Respiratory Rate Blood Pressure Pulse Oximetry 05/30/18 12:00 05/30/18 13:00 Temperature 98.0 F Pulse Rate 80 102 H Respiratory Rate 16 Blood Pressure 162/79 H Pulse Oximetry 95 Intake & Output 05/29/18 05/30/18 05/30/18 18:59 06:59 18:59 Intake Total 720 / 720 240 / 240 Output Total 800 / 800 Balance -80 / -80 240 / 240 Weight 73.2 kg Intake: Oral 720 / 720 240 / 240 Output: Urine Amount (Catheter) 800 / 800 Indwelling Urethral Catheter 800 / 800 Other: # Incontinent Voids 1 Date of Last Bowel Movement 05/24/18 Narrative: GENERAL: Elderly female in no respiratory distress.On O2 N/C 4L CARDIOVASCULAR: Normal rate and regular rhythm without murmurs, gallops, or rubs. RESPIRATORY: Air movement poor with Bibasilar crackles and occ wheeze. GASTROINTESTINAL: Abdomen soft, non-tender, non-distended. Normal active bowel sounds MUSCULOSKELETAL: 1 + bilateral lower extremity edema. Has perineal rash and skin excoriation. PSYCH: Remains Calm today. Neuro : No deficits. - Urinary Catheter Management Indwelling Urethral Catheter Cath placed during this visit: yes, but has since been removed by the nurse Reason for continuing: Decision to DC catheter Insertion date: 05/19/18 Removal date: 05/29/18 Removal time: 16:29 Results - Labs CBC & Chem 7: 05/28/18 05:07 05/28/18 05:07 Laboratory Results - last 24 hr 05/29/18 05/29/18 05/30/18 16:57 20:57 03:43 POC Glucose 189 H 343 H 224 H 05/30/18 05/30/18 07:48 12:06 POC Glucose 206 H 169 H Assessment and Plan - Assessment (1) Aspiration pneumonia Code(s): J69.0 - Pneumonitis due to inhalation of food and vomit Status: Acute (2) Dementia Code(s): F03.90 - Unspecified dementia without behavioral disturbance Status: Acute (3) Sepsis Code(s): A41.9 - Sepsis, unspecified organism Status: Acute (4) Respiratory failure Code(s): J96.90 - Respiratory failure, unspecified, unspecified whether with hypoxia or hypercapnia Status: Acute (5) COPD exacerbation Code(s): J44.1 - Chronic obstructive pulmonary disease with (acute) exacerbation Status: Acute (6) Pneumonia Code(s): J18.9 - Pneumonia, unspecified organism Status: Acute - Plan 1. Continue antibiotics Levaquin 500 mg Daily X3 2. Duoneb nebs qid. 3. Wean O2 to N/C 4 L 4. Symbicort 160/4.5 mcg, 2puffs BID 5. Burch catheter 6. OK to trasfer to residential if stable on 4 L O2 7. Prednisone 10 mg PO daily X 7 days 8. Add Mycolog cream to Skin rash BID for 10 days (4) Respiratory failure Qualifiers: Chronicity: acute Respiratory failure complication: hypoxia Qualified Code(s ): J96.01 - Acute respiratory failure with hypoxia (6) Pneumonia Qualifiers: Pneumonia type: due to unspecified organism Laterality: left Lung location: lower lobe of lung Qualified Code(s): J18.1 - Lobar pneumonia, unspecified organism
[2018-05-30] MEDS: clonazePAM 0.5 MG Tablet PO PRN (17:40)
[2018-05-30 18:55] VITALS: BP 152/76; PULSE 95; RESP 18; O2SAT 96
== END 2018-05-30 18:14 ==
LOC: NEPC 19:21 → NEDA 22:09 → HCIS 05-19 01:20
PROVIDERS: ADMIT Family Medicine; ATTEND Family Medicine

== ENCOUNTER 2018-07-28 12:39 | Inpatient (IN) ==
--- NOTE | 2018-07-28 13:27 | ED ---
HPI General Chief Complaint: Shortness of Breath/Dyspnea Stated Complaint: SOB Time Seen by Provider: 07/28/18 13:07 Source: patient Mode of arrival: EMS Limitations: other (poor historian) History of Present Illness 73-year-old female presents by ambulance with shortness of breath. She had outpatient ultrasound of her legs that showed DVT. Report where she was placed on Eliquis for these on the 11 of this month. Patient is unsure what she was diagnosed with. She does note shortness of breath but feels better on the oxygen. She does not know when she got her last breathing treatment. EMS was not present when I went to the room. History is limited. Related Data Home Medications Medication Instructions Recorded Confirmed amlodipine 10 mg PO DAILY 05/18/18 07/28/18 clonazepam [Klonopin] 0.5 mg PO TID 05/18/18 07/28/18 docusate sodium 100 mg PO DAILY 05/18/18 07/28/18 insulin detemir U-100 [Levemir 22 unit SUBCUT AC 05/18/18 07/28/18 FlexTouch U-100 Insuln] lisinopril 10 mg PO DAILY 05/18/18 07/28/18 melatonin 3 mg PO HS 05/18/18 07/28/18 mirtazapine [Remeron] 30 mg PO HS 05/18/18 07/28/18 nitroglycerin 0.4 mg SUBLINGUAL Q5-15M PRN 05/18/18 07/28/18 ranitidine HCl 75 mg PO BID 05/18/18 07/28/18 sertraline 150 mg PO DAILY 05/18/18 07/28/18 sucralfate 1 g PO BID 05/18/18 07/28/18 tramadol 50 mg PO TID 05/18/18 07/28/18 apixaban 5 mg PO BID 07/28/18 07/28/18 insulin aspart U-100 [Novolog 3 unit SUBCUT ACHS 07/28/18 07/28/18 U-100 Insulin aspart] ipratropium-albuterol [Combivent 2 puff INHALATION Q6H 07/28/18 07/28/18 Respimat] levofloxacin 750 mg PO DAILY 07/28/18 07/28/18 prednisone 40 mg PO BID 07/28/18 07/28/18 Previous Rx's Medication Instructions Recorded ipratropium-albuterol 1 amp NEB Q4HR NEB PRN ml 05/30/18 Allergies Allergy/AdvReac Type Severity Reaction Status Date / Time penicillin G Allergy Unknown Rash Verified 05/19/18 04:48 Review of Systems ROS Unobtainable ROS Unobtainable: other (Poor historian but denies pain) [facility] Medical History Medical History COPD (chronic obstructive pulmonary disease) (Acute) Dementia (Acute) Diabetes (Acute) Hypertension (Acute) Rheumatoid arthritis (Acute) Surgical History Surgical History History of hip surgery (Acute) Hx of cholecystectomy (Acute) Family History Family History Other Diabetes mellitus Social History Social History Substance History: No History of Abuse Second Hand Smoke Exposure: No Smoking Status: Former smoker How Often Do You Have a Drink Containing Alcohol: Monthly or less Recent Travel in [facility] within the Last 8 Weeks: No Recent Out of Country Travel within the Last 8 Weeks: No Immunization History Tetanus Immunization: <5 Years Exam Narrative Exam Narrative: GENERAL: 73-year-old female in no apparent distress SKIN: Focused skin assessment warm/dry. HEAD: Atraumatic. Normocephalic. EYES: Pupils equal and round. No scleral icterus. No injection or drainage. ENT: No nasal bleeding or discharge. Mucous membranes pink and moist. NECK: Trachea midline. No JVD. CARDIOVASCULAR: Regular rate and rhythm. RESPIRATORY: No accessory muscle use. Expiratory wheezing bilaterally. GASTROINTESTINAL: Abdomen soft, non-tender, nondistended. MUSCULOSKELETAL: No obvious deformities. No clubbing. No cyanosis. Patient has pain to bilateral calves, neurovascularly intact NEUROLOGICAL: Awake. Motor grossly within normal limits. Normal speech Course Reevaluation(s) Reevaluation #1: Patient with incidental bilateral DVTs just started on Eliquis. CTA shows no central PE. Will repeat DuoNeb and placed on Solu- Medrol as she could have concurrent COPD exacerbation. Given process shown on CT or cannot exclude neoplastic process versus infection will dose with Levaquin although patient has no white count or fever. She will need to have her ultrasound and arterial Dopplers followed and she will be watched in the hospital overnight given her increasing oxygen requirement from 4 liters. Consultations Consultation #1: dr lin requested icu admission Initial Documented Vital Signs Temperature 98.1 F 07/28/18 12:59 Pulse Rate 97 H 07/28/18 12:59 Respiratory Rate 23 07/28/18 12:59 Blood Pressure 103/66 07/28/18 12:59 Pulse Oximetry 98 07/28/18 12:59 Last Documented Vital Signs Temperature 98.8 F 07/28/18 15:47 Pulse Rate 75 07/28/18 15:53 Respiratory Rate 18 07/28/18 15:53 Blood Pressure 104/54 L 07/28/18 15:47 Pulse Oximetry 98 07/28/18 15:47 Medical Decision Making MDM Narrative Medical decision making narrative: Patient has arterial Doppler report that shows extensive bilateral lower extremity DVTs and was started on Eliquis. It also shows no flow to the left side arterially. We will check blood work, chest x-ray, CT chest and CTA runoff, and dose with DuoNeb and heparin drip and reevaluate Medical Screen Exam Complete: Yes Emergency Medical Condition: Yes Differential Diagnosis Differential Diagnosis: PE, COPD, pneumothorax, anemia, renal failure Lab Data Lab results reviewed: Yes I reviewed the patient's lab results. Lab results narrative: ABG shows adequate oxygenation on partial nonrebreather, pH is normal and PCO2 is only mildly elevated Result diagrams: 07/28/18 13:17 07/28/18 13:17 Lab Results 07/28/18 07/28/18 07/28/18 Range/Units 13:17 13:17 13:17 WBC 8.6 (4.0-11.0) th/mm3 RBC 3.64 L (4.00-5.30) mil/mm3 Hgb 10.9 L (11.6-15.3) gm/dL Hct 33.7 L (35.0-46.0) % MCV 92.6 (80.0-100.0) fL MCH 30.1 (27.0-34.0) pg MCHC 32.5 (32.0-36.0) % RDW 16.5 (11.6-17.2) % Plt Count 247 (150-450) th/mm3 MPV 9.2 (7.0-11.0) fL Neut % (Auto) 73.0 H (16.0-70.0) % Lymph % (Auto) 14.6 (9.0-44.0) % [place] % (Auto) 9.3 H (0.0-8.0) % Eos % (Auto) 2.6 (0.0-4.0) % Baso % (Auto) 0.5 (0.0-2.0) % Neut # (Auto) 6.3 (1.8-7.7) th/mm3 Lymph # (Auto) 1.3 (1.0-4.8) th/mm3 [place] # (Auto) 0.8 (0.0-0.9) th/mm3 Eos # (Auto) 0.2 (0.0-0.4) th/mm3 Baso # (Auto) 0.0 (0.0-0.2) th/mm3 WBC Differential . Differential Comment Auto diff final PT 13.1 H (9.8-11.6) sec INR 1.3 Ratio APTT 33.1 H (23.4-31.7) sec Puncture Site Patient Temperature O2 Saturation (90-100) % ABG pH (7.380-7.420) ABG pCO2 (38-42) mmHg ABG pO2 (61-120) mmHg ABG HCO3 (22-26) mmol/L ABG O2 Content (12.0-20.0) Vol % ABG Base Excess (-2-2) mmol/L ABG Methemoglobin (0-2) % Laz Test Hemoglobin (12.0-16.0) G/DL Carboxyhemoglobin (0-4) % O2 Delivery Device Liter Flow L/M Critical Value Sodium 143 (136-145) meq/L Potassium 4.4 (3.5-5.1) meq/L Chloride 106 (98-107) meq/L Carbon Dioxide 27.0 (21.0-32.0) meq/L Anion Gap 10 (5-15) meq/L BUN 30 H (7-18) mg/dL Creatinine 1.54 H (0.50-1.00) mg/dL Estimated GFR 33 L (>89) mL/min Random Glucose 101 (74-106) mg/dL Calcium 8.2 L (8.5-10.1) mg/dL Magnesium 1.7 (1.5-2.5) mg/dL Total Bilirubin 0.3 (0.2-1.0) mg/dL AST 28 (15-37) U/L ALT 16 (10-53) U/L Alkaline Phosphatase 102 (45-117) U/L Total Creatine Kinase 70 (26-192) U/L Troponin I 0.05 (0.02-0.05) ng/mL B-Natriuretic Peptide (0-100) pg/mL Total Protein 5.9 L (6.4-8.2) g/dL Albumin 2.2 L (3.4-5.0) g/dL 07/28/18 07/28/18 Range/Units 13:17 13:20 WBC (4.0-11.0) th/mm3 RBC (4.00-5.30) mil/mm3 Hgb (11.6-15.3) gm/dL Hct (35.0-46.0) % MCV (80.0-100.0) fL MCH (27.0-34.0) pg MCHC (32.0-36.0) % RDW (11.6-17.2) % Plt Count (150-450) th/mm3 MPV (7.0-11.0) fL Neut % (Auto) (16.0-70.0) % Lymph % (Auto) (9.0-44.0) % [place] % (Auto) (0.0-8.0) % Eos % (Auto) (0.0-4.0) % Baso % (Auto) (0.0-2.0) % Neut # (Auto) (1.8-7.7) th/mm3 Lymph # (Auto) (1.0-4.8) th/mm3 [place] # (Auto) (0.0-0.9) th/mm3 Eos # (Auto) (0.0-0.4) th/mm3 Baso # (Auto) (0.0-0.2) th/mm3 WBC Differential Differential Comment PT (9.8-11.6) sec INR Ratio APTT (23.4-31.7) sec Puncture Site Right radial Patient Temperature 98.6 O2 Saturation 94 (90-100) % ABG pH 7.39 (7.380-7.420) ABG pCO2 44 H (38-42) mmHg ABG pO2 78 (61-120) mmHg ABG HCO3 26 (22-26) mmol/L ABG O2 Content 14.6 (12.0-20.0) Vol % ABG Base Excess 1.9 (-2-2) mmol/L ABG Methemoglobin 0.4 (0-2) % Laz Test Present Hemoglobin 11.0 L (12.0-16.0) G/DL Carboxyhemoglobin 1.3 (0-4) % O2 Delivery Device Pnrb Liter Flow 10.00 L/M Critical Value No Sodium (136-145) meq/L Potassium (3.5-5.1) meq/L Chloride (98-107) meq/L Carbon Dioxide (21.0-32.0) meq/L Anion Gap (5-15) meq/L BUN (7-18) mg/dL Creatinine (0.50-1.00) mg/dL Estimated GFR (>89) mL/min Random Glucose (74-106) mg/dL Calcium (8.5-10.1) mg/dL Magnesium (1.5-2.5) mg/dL Total Bilirubin (0.2-1.0) mg/dL AST (15-37) U/L ALT (10-53) U/L Alkaline Phosphatase (45-117) U/L Total Creatine Kinase (26-192) U/L Troponin I (0.02-0.05) ng/mL B-Natriuretic Peptide 423 H (0-100) pg/mL Total Protein (6.4-8.2) g/dL Albumin (3.4-5.0) g/dL Imaging Data Attestation: I personally reviewed and interpreted this imaging study as follows : Radiologist's impression: Chest CTA 07/28/18 13:07 CONCLUSION: 1. There is no evidence of central pulmonary emboli 2. Significant deterioration appearance of the chest from 05/21/2018. Inflammatory process right lung suspected because of the rapid change. Neoplastic process cannot be entirely excluded. Chest X-Ray 07/28/18 13:07 CONCLUSION: Stable chest compared to 4:52 AM. Venous Doppler Study 07/28/18 13:52 CONCLUSION: 1. Bilateral deep venous thrombosis. Discharge Plan Discharge Disposition Patient Disposition: ED Admit(ED Internal Use Only) Discharge Order Discharge Orders: ED Use Only Admit Order (Routine); Ordered 07/28/18 Ordered By: Janelle Asencio Discharge Details Diagnosis: DVT (deep venous thrombosis), COPD exacerbation, Breath, shortness Physicians Team ED Provider: Janelle Asencio Primary Care Provider: UNKNOWN, Attending Provider: Danita Lin Status ED Status: Admitted Patient
[2018-07-28] MEDS ORDERED: Heparin 10,000 UNITS/10 ML Vial (for IV use) IV.PUSH STA (13:28)
[2018-07-28] MEDS ORDERED: Heparin Drip 25,000 UNIT/250 ML BAG IV.CONT PRN (13:28)
[2018-07-28 13:29] LABS: ABG Base Excess 1.9 mmol/L (-2-2); ABG PCO2 44 mmHg (38-42); ABG PO2 78 mmHg (61-120)
[2018-07-28 13:38] LABS: Baso % (Auto) 0.5 % (0.0-2.0); Eos # (Auto) 0.2 th/mm3 (0.0-0.4); Eos % (Auto) 2.6 % (0.0-4.0); Hematocrit 33.7 % (35.0-46.0); Hemoglobin 10.9 gm/dL (11.6-15.3); Lymph # (Auto) 1.3 th/mm3 (1.0-4.8); Lymph % (Auto) 14.6 % (9.0-44.0); Mean Corpuscular HGB Conc 32.5 % (32.0-36.0); Mean Corpuscular Hemoglobin 30.1 pg (27.0-34.0); Mean Corpuscular Volume 92.6 fL (80.0-100.0); Mean Platelet Volume 9.2 fL (7.0-11.0); Mono # (Auto) 0.8 th/mm3 (0.0-0.9); Mono % (Auto) 9.3 % (0.0-8.0); Neut # (Auto) 6.3 th/mm3 (1.8-7.7); Platelet Count 247 th/mm3 (150-450); Red Blood Count 3.64 mil/mm3 (4.00-5.30); Red Cell Distribution Width 16.5 % (11.6-17.2); White Blood Count 8.6 th/mm3 (4.0-11.0)
[2018-07-28 13:46] LABS: Activated Partial Thrombo Time 33.1 sec (23.4-31.7); INR 1.3 Ratio; Prothrombin Time 13.1 sec (9.8-11.6)
[2018-07-28 13:52] LABS: Alanine Aminotransferase 16 U/L (10-53); Albumin 2.2 g/dL (3.4-5.0); Anion Gap 10 meq/L (5-15); Aspartate Aminotransferase 28 U/L (15-37); Blood Urea Nitrogen 30 mg/dL (7-18); Calcium 8.2 mg/dL (8.5-10.1); Chloride 106 meq/L (98-107); Glomerular Filtration Rate 33 mL/min (>89); Glucose,Random 101 mg/dL (74-106); Magnesium 1.7 mg/dL (1.5-2.5); Potassium 4.4 meq/L (3.5-5.1); Sodium 143 meq/L (136-145)
[2018-07-28 13:56] LABS: Alkaline Phosphatase 102 U/L (45-117); Total Protein 5.9 g/dL (6.4-8.2); Troponin I 0.05 ng/mL (0.02-0.05)
[2018-07-28 13:58] LABS: Creatine Kinase 70 U/L (26-192)
[2018-07-28] MEDS ORDERED: Sodium Chlor 0.9% Inj 500 ML IV.SIG SCH (14:00)
--- NOTE | 2018-07-28 14:11 | XR ---
EXAM DATE: 07/28/2018 1:44 PM EST AGE/SEX: 73 years / Female INDICATIONS: Short of breath. CLINICAL DATA: This is the patient's initial encounter. Patient reports that signs and symptoms have been present for 1 day and indicates a pain score of 0/10. MEDICAL/SURGICAL HISTORY: . Chronic obstructive pulmonary disease. Diabetes. Hypertension. No ne. [place] [facility] [place]. . FINDINGS: Lungs are under aerated with moderate bibasilar parenchymal changes worse on the left. Moderate perib ronchial thickening is present. Minimal interstitial edema is noted. There is no pneumothorax. CONCLUSION: Stable chest compared to 4:52 AM. Electronically signed by: Paras Christiansen MD 07/28/2018 2:10 PM EST
--- NOTE | 2018-07-28 15:22 | CT ---
EXAM DATE: 07/28/2018 3:15 PM EST AGE/SEX: 73 years / Female INDICATIONS: Short of breath, recent diagnosis of DVT. CLINICAL DATA: This is the patient's initial encounter. Patient reports that signs and symptoms have been present for 1 day and indicates a pain score of 4/10. MEDICAL/SURGICAL HISTORY: Chronic obstructive pulmonary disease. Diabetes. Rheumatoid arthritis. dementia Cholecystectomy. RADIATION DOSE: 9.99 CTDI (mGy) COMPARISON: [facility] [place], [place] CHEST W/O CONTRAST, 05/21/2018. . TECHNIQUE: Volumetric scanning was performed using a multi-row detector CT scanner during bolus infu aline of 50 ml Visipaque 320 (iodixanol) nonionic water-soluble contrast as a single exam dose. The d prudencio was post processed with a variety of visualization algorithms including full volume maximum inten sity projection and sliding thin slab reformation. Using automated exposure control and adjustment of the mA and/or kV according to patient size, radiation dose was kept as low as reasonably achievable to obtain optimal diagnostic quality images. DICOM format image data is available electronically for review and comparison. FINDINGS: Pulmonary Arteries: There are no central pulmonary emboli. Lung: Extensive edematous changes are seen in both lungs with airspace disease and pleural thickenin g beginning in the right upper lobe extending down towards the right base associated with minimal med iastinal disease. There are no suspicious lesions in the left lung. There are no pleural effusions. Mediastinum: Minimal nonspecific mediastinal adenopathy present worse about the right hilum. Pulmona ry arteries are prominent centrally reflux into hepatic veins suggesting pulmonary hypertension. Moderate coronary calcifications are noted. Other: Bone windows reveal moderate degenerative changes. CONCLUSION: 1. There is no evidence of central pulmonary emboli 2. Significant deterioration appearance of the chest from 05/21/2018. Inflammatory process right lung suspected because of the rapid change. Neoplastic process cannot be entirely excluded. Electronically signed by: Paras Christiansen MD 07/28/2018 3:20 PM EST
[2018-07-28] MEDS ORDERED: MethylPREDNISolone Sod Succinate Inj 125 MG/2 ML Vial IV.PUSH ONE (15:26)
--- NOTE | 2018-07-28 16:13 | US ---
EXAM DATE: 07/28/2018 4:06 PM EST AGE/SEX: 73 years / Female INDICATIONS: Bilateral leg swelling. CLINICAL DATA: This is the patient's initial encounter. Patient reports that signs and symptoms have been present for 2 days and indicates a pain score of 0/10. MEDICAL/SURGICAL HISTORY: Chronic obstructive pulmonary disease. Dementia. Diabetes. Hyperte nsion. Rheumatoid arthritis. Cholecystectomy. Hip surgery. COMPARISON: No prior exams available for comparison. TECHNIQUE: Venous ultrasound of both lower extremities was performed from the inguinal ligament to t he proximal calf. Real-time, color Doppler and spectral tracing, compression and augmentation techni ques were used. FINDINGS: Right Leg: Nonocclusive thrombus is present in the right common femoral vein which views partially c ompressible. The superficial femoral vein, popliteal vein and calf veins are patent and compressible and demonstrate normal venous waveform and augmentation response. Left Leg: There is nonocclusive thrombus in the greater saphenous vein which is partially compressib le. There is nonocclusive thrombus in the common femoral vein, distal superficial femoral vein and po pliteal veins. There is also thrombus in the peroneal vein and posterior tibial veins . Other: None. CONCLUSION: 1. Bilateral deep venous thrombosis. Electronically signed by: Daren Recio MD 07/28/2018 4:11 PM EST
--- NOTE | 2018-07-28 17:05 | ECG ---
Date Performed: 07/28/2018 Time Performed: 13:16:02 PTAGE: 73 years EKG: SINUS TACHYCARDIA WITH SHORT KS INTERVAL WITH FREQUENT SUPRAVENTRICULAR PREMATURE COMPLEXES MARKED LEFT AXIS DEVIATION LEFT BUNDLE BRANCH BLOCK ABNORMAL ECG No significant change from prior el ectrocardiogram. PREVIOUS TRACING : 05/18/2018 21.02 DOCTOR: Murali Pandey Interpretating Date/Time 07/28/2018 17:03:43
[2018-07-28] MEDS ORDERED: Sodium Chloride 0.9% 2 ML Flush PRN IV.FLUSH (17:06)
--- NOTE | 2018-07-28 17:51 | P.HP ---
History of Present Illness Primary Care Physician: UNKNOWN Chief Complaint: Shortness of breath, Bilateral DVT History of Present Illness: Patient is a 73-year-old female, resident of a nearby assisted living facility with history of diabetes type 2 insulin requiring, hypertension, baseline dementia, diabetes type 2 insulin requiring, COPD on O2 dependent 4 L nasal cannula. Patient is a resident of [facility] who was sent here because. Patient states he is states that she gets around with a wheelchair and when asked why she stated that I hurt all over, she states she eats regular diet consistency,. On review of records she was sent here because of bilateral DVT that was noted yesterday on on arterial Doppler study. she was started on apixaban 10 mg twice daily last evening. This morning was noted to be short of breath and was sent here for further evaluation. CTA of the chest was done and ruled out pulmonary embolism. Patient denies any fever or chills. Patient does cough. Review of labs shows no white count. On initial evaluation - ER MD notes with diffuse wheezing. Now patient currently on nasal cannula at 4 L Sat at 90%. Is awake alert oriented to person and year. Very interactive and a little manic Exam shows some occasional few expiratory wheeze Admitted for further evaluation and management. Review of records patient just completed a course of prednisone few days ago . She is on ranitidine, Zoloft, tramadol, amlodipine 5 mg twice a day, clonazepam 0.5 3 times daily, lisinopril 10 mg daily, melatonin 3 mg at bedtime mirtazapine 30 mg at bedtime multivitamin, Levemir 22 units subcu twice daily and p.o. Levaquin Inpatient Certification: I certify that the inpatient services were ordered in accordance with Medicare regulations governing the order. This includes certification that hospital inpatient services are reasonable and necessary and in the case of services not specified as inpatient-only under 42 CFR 419.22(n), that they are appropriately provided as inpatient services in accordance to with the 2-midnight benchmark under 43 CFR 412.3(e) Estimated Total Length of Stay (Days): 2 Plans for Post Hospital Care: Not yet determined PMFSH - History History Provided By: Patient - Medical History Medical History: Medical History (Last Reviewed 07/29/18 @ 13:20 by Evangelina Fabian PT) COPD (chronic obstructive pulmonary disease) Dementia Diabetes Hypertension Rheumatoid arthritis - Surgical History Surgical History: Surgical History (Last Reviewed 07/29/18 @ 13:20 by Evangelina Fabian PT) History of hip surgery Hx of cholecystectomy - Family History Family History: Family History (Last Reviewed 07/29/18 @ 13:20 by Evangelina Fabian PT) Other Diabetes mellitus - Tobacco History Second Hand Smoke Exposure: No Tobacco Use In Past 30 Days: No Smoking Status: Former smoker - Alcohol History How Often Do You Have a Drink Containing Alcohol: Monthly or less - Substance Use History Substance History: No History of Abuse - Travel History Recent Travel in the [place] Within the Last 8 Weeks: No Recent Travel Out of the Country Within the Last 8 Weeks: No - Immunization History Tetanus Immunization: <5 Years Medications and Allergies Active Medications: Active Medications Apixaban (Eliquis) 10 mg PO BID CHARISSE Stop: 08/04/18 17:59 Sodium Chloride (Ns Inj) 1,000 mls @ 42 mls/hr IV.CONT .[id number] CHARISSE Sodium Chloride (Ns Flush) 2 ml IV.FLUSH BID CHARISSE Sodium Chloride (Ns Flush) 2 ml IV.FLUSH PRN PRN PRN Reason: FLUSH AFTER USING IV ACCESS Allergies Allergy/AdvReac Type Severity Reaction Status Date / Time penicillin G Allergy Unknown Rash Verified 05/19/18 04:48 Home Medications Medication Instructions Recorded Confirmed Type amlodipine 10 mg PO DAILY 05/18/18 07/28/18 History clonazepam [Klonopin] 0.5 mg PO TID 05/18/18 07/28/18 History docusate sodium 100 mg PO DAILY 05/18/18 07/28/18 History insulin detemir U-100 [Levemir 22 unit SUBCUT AC 05/18/18 07/28/18 History FlexTouch U-100 Insuln] lisinopril 10 mg PO DAILY 05/18/18 07/28/18 History melatonin 3 mg PO HS 05/18/18 07/28/18 History mirtazapine [Remeron] 30 mg PO HS 05/18/18 07/28/18 History nitroglycerin 0.4 mg SUBLINGUAL Q5-15M PRN 05/18/18 07/28/18 History ranitidine HCl 75 mg PO BID 05/18/18 07/28/18 History sertraline 150 mg PO DAILY 05/18/18 07/28/18 History sucralfate 1 g PO BID 05/18/18 07/28/18 History tramadol 50 mg PO TID 05/18/18 07/28/18 History apixaban 5 mg PO BID 07/28/18 07/28/18 History insulin aspart U-100 [Novolog 3 unit SUBCUT ACHS 07/28/18 07/28/18 History U-100 Insulin aspart] ipratropium-albuterol [Combivent 2 puff INHALATION Q6H 07/28/18 07/28/18 History Respimat] levofloxacin 750 mg PO DAILY 07/28/18 07/28/18 History prednisone 40 mg PO BID 07/28/18 07/28/18 History Exam Vital signs: Vital Signs 07/28/18 12:59 07/28/18 13:18 07/28/18 13:25 Temperature 98.1 F Pulse Rate 97 H 69 Respiratory Rate 23 20 Blood Pressure 103/66 Pulse Oximetry 98 96 07/28/18 14:01 07/28/18 15:29 07/28/18 15:42 Temperature 98.3 F Pulse Rate 66 Respiratory Rate 18 Blood Pressure 129/59 L 111/65 Pulse Oximetry 98 95 07/28/18 15:47 07/28/18 15:53 Temperature 98.8 F Pulse Rate 62 75 Respiratory Rate 18 18 Blood Pressure 104/54 L Pulse Oximetry 98 Intake & Output 07/27/18 07/28/18 07/28/18 18:59 06:59 18:59 Intake Total 500 / 500 Balance 500 / 500 Weight 69.853 kg Intake: IV 500 / 500 NS Inj 500 ML @ 1000 mls/hr IV. 500 / 500 SIG [facility] Rx#:[id number] Narrative: Patient is awake alert interactive. Slightly combative but follows all commands and sarcastic on response. Oriented to person, she knows the president is Trump, follows all commands Anicteric, edentulous Neck supple Chest lungs bilateral breath sounds equal with some few expiratory wheezes Regular rhythm Abdomen is soft flabby Extremities no edema bilateral pulses equal no calf tenderness or swelling right foot slightly externally rotated Left heel-with stage II superficial ulcer Right thumb with erythema and a dry scab. Right forearm with some superficial tears. Results - Labs CBC & Chem 7: 07/30/18 05:24 07/30/18 05:24 Labs: Laboratory Results - last 24 hr 07/28/18 07/28/18 07/28/18 13:17 13:17 13:17 WBC 8.6 RBC 3.64 L Hgb 10.9 L Hct 33.7 L MCV 92.6 MCH 30.1 MCHC 32.5 RDW 16.5 Plt Count 247 MPV 9.2 Neut % (Auto) 73.0 H Lymph % (Auto) 14.6 Emmet % (Auto) 9.3 H Eos % (Auto) 2.6 Baso % (Auto) 0.5 Neut # (Auto) 6.3 Lymph # (Auto) 1.3 Emmet # (Auto) 0.8 Eos # (Auto) 0.2 Baso # (Auto) 0.0 WBC Differential . Differential Comment Auto diff final PT 13.1 H INR 1.3 APTT 33.1 H Puncture Site Patient Temperature O2 Saturation ABG pH ABG pCO2 ABG pO2 ABG HCO3 ABG O2 Content ABG Base Excess ABG Methemoglobin Laz Test Hemoglobin Carboxyhemoglobin O2 Delivery Device Liter Flow Critical Value Sodium 143 Potassium 4.4 Chloride 106 Carbon Dioxide 27.0 Anion Gap 10 BUN 30 H Creatinine 1.54 H Estimated GFR 33 L Random Glucose 101 Calcium 8.2 L Magnesium 1.7 Total Bilirubin 0.3 AST 28 ALT 16 Alkaline Phosphatase 102 Total Creatine Kinase 70 Troponin I 0.05 B-Natriuretic Peptide Total Protein 5.9 L Albumin 2.2 L 07/28/18 07/28/18 13:17 13:20 WBC RBC Hgb Hct MCV MCH MCHC RDW Plt Count MPV Neut % (Auto) Lymph % (Auto) Emmet % (Auto) Eos % (Auto) Baso % (Auto) Neut # (Auto) Lymph # (Auto) Emmet # (Auto) Eos # (Auto) Baso # (Auto) WBC Differential Differential Comment PT INR APTT Puncture Site Right radial Patient Temperature 98.6 O2 Saturation 94 ABG pH 7.39 ABG pCO2 44 H ABG pO2 78 ABG HCO3 26 ABG O2 Content 14.6 ABG Base Excess 1.9 ABG Methemoglobin 0.4 Laz Test Present Hemoglobin 11.0 L Carboxyhemoglobin 1.3 O2 Delivery Device Pnrb Liter Flow 10.00 Critical Value No Sodium Potassium Chloride Carbon Dioxide Anion Gap BUN Creatinine Estimated GFR Random Glucose Calcium Magnesium Total Bilirubin AST ALT Alkaline Phosphatase Total Creatine Kinase Troponin I B-Natriuretic Peptide 423 H Total Protein Albumin - Imaging Impressions Chest CTA 07/28/18 13:07 CONCLUSION: 1. There is no evidence of central pulmonary emboli 2. Significant deterioration appearance of the chest from 05/21/2018. Inflammatory process right lung suspected because of the rapid change. Neoplastic process cannot be entirely excluded. Chest X-Ray 07/28/18 13:07 CONCLUSION: Stable chest compared to 4:52 AM. Venous Doppler Study 07/28/18 13:52 CONCLUSION: 1. Bilateral deep venous thrombosis. Caprini VTE Risk Assessment Caprini VTE Risk Assessment: Moderate/High Risk (score >= 2) Caprini Risk Assessment Model: Point Value = 1 Point Value = 2 Point Value = 3 Point Value = 5 Age 41-60 Minor surgery BMI > 25 kg/m2 Swollen legs Varicose veins or History of unexplained or recurrent spontaneous Oral contraceptives or hormone replacement Sepsis (< 1 month) Serious lung disease, including pneumonia (< 1 month) Abnormal pulmonary function Acute myocardial infarction Congestive heart failure (< 1 month) History of inflammatory bowel disease Medical patient at bed rest Age 61-74 Arthroscopic surgery Major open surgery (> 45 min) Laparoscopic surgery (> 45 min) Malignancy Confined to bed (> 72 hours) Immobilizing plaster cast Central venous access Age >= 75 History of VTE Family history of VTE Factor V Leiden Prothrombin [id number] Lupus anticoagulant Anticardiolipin antibodies Elevated serum homocysteine Heparin-induced thrombocytopenia Other congenital or acquired thrombophilia Stroke (< 1 month) Elective arthroplasty Hip, pelvis, or leg fracture Acute spinal cord injury (< 1 month) Prophylaxis Regimen: Total Risk Factor Score Risk Level Prophylaxis Regimen 0-1 Low Early ambulation 2 Moderate Order ONE of the following: *Sequential Compression Device (SCD) *Heparin 5000 units SQ BID 3-4 Higher Order ONE of the following medications: *Heparin 5000 units SQ TID *Enoxaparin/Lovenox 40 mg SQ daily (WT < 150 kg, CrCl > 30 mL/min) *Enoxaparin/Lovenox 30 mg SQ daily (WT < 150 kg, CrCl > 10-29 mL/min) *Enoxaparin/Lovenox 30 mg SQ BID (WT < 150 kg, CrCl > 30 mL/min) AND/OR *Sequential Compression Device (SCD) 5 or more Highest Order ONE of the following medications: *Heparin 5000 units SQ TID (Preferred with Epidurals) *Enoxaparin/Lovenox 40 mg SQ daily (WT < 150 kg, CrCl > 30 mL/min) *Enoxaparin/Lovenox 30 mg SQ daily (WT < 150 kg, CrCl > 10-29 mL/min) *Enoxaparin/Lovenox 30 mg SQ BID (WT < 150 kg, CrCl > 30 mL/min) AND *Sequential Compression Device (SCD) Assessment and Plan - Plan 73-year-old female presenting with Shortness of breath. Patient is a non-smoker likely with underlying Acute COPD in exacerbation.with chronic respiratory failure -O2 dependent - continue on IV steroids for 2 more doses then change to po in am if clinically improved Continue on duo nebs every 6 scheduled and every [address] shows no pulmonary embolism. Bilateral DVT Start on Eliquis as originally planned 10 mg twice a day for 7 days then 5 mg twice daily. DC heparin drip History of hypertension mildly elevated BNP. Clinically no signs of heart failure We will check a 2D echo. -Continue on lisinopril 10 mg daily.- monitor creatinine- Acute kidney Injury reviewed old labs from 05/2018- creatinine 1.02. already on CHAS is part of her home meds We will start patient on gentle hydration since the patient received IV contrast for the CTA study recheck BMP in a.m. Diabetes type 2 insulin requiring on review of records Check fingersticks 3 times daily and at bedtime Low-dose sliding scale coverage. As outpatient was on Levemir 22 units twice daily. - will hold for now. check A1C Blood sugar here was 101. Will hold off on long-acting insulin. Left heel stage II ulcer Right thumb cellulitis -Get the wound care team consult. - on levaquin Underlying dementia. Continue on home meds melatonin, mirtazapine, CODE STATUS. Patient is DNR is on facility records
[2018-07-28] MEDS ORDERED: Nitroglycerin SL (Override) 0.4 MG Tab SL PRN (17:56)
[2018-07-28] MEDS ORDERED: Dextrose 50% in Water 50 ML Vial IV.PUSH PRN ×2 (18:17→23:12)
[2018-07-28] MEDS: Famotidine 20 MG Tablet PO SCH (20:59)
[2018-07-28] MEDS ORDERED: MethylPREDNISolone Sod Succinate Inj 125 MG/2 ML Vial IV.PUSH SCH (21:00)
[2018-07-28] MEDS: Sod Chloride 0.9% Inj 1,000 ML IV.CONT SCH (21:00)
[2018-07-28] MEDS: Sodium Chloride 0.9% 2 ML Flush BID IV.FLUSH SCH (21:00)
[2018-07-28] MEDS ORDERED: Insulin NovoLOG Aspart Correctional Sugar Inj SQ SCH (21:00)
[2018-07-28] MEDS ORDERED: RANITIDINE HCL 75 MG PO SCH (21:00)
[2018-07-28] MEDS: MethylPREDNISolone Sod Succinate Inj 125 MG/2 ML Vial IV.PUSH SCH (21:00)
[2018-07-28] MEDS: Melatonin 5 MG Tablet PO SCH (21:18)
[2018-07-28] MEDS: Mirtazapine 15 MG Tablet PO SCH (21:18)
[2018-07-28] MEDS ORDERED: Insulin Detemir Inj 1,000 UNIT/10 ML Vial SQ SCH (23:15)
[2018-07-28] MEDS: Sucralfate 1 GM Tablet PO SCH (23:41)
[2018-07-29 02:51] LABS: Hematocrit 32.4 % (35.0-46.0); Hemoglobin 10.7 gm/dL (11.6-15.3); Mean Corpuscular HGB Conc 33.1 % (32.0-36.0); Mean Corpuscular Volume 90.5 fL (80.0-100.0); Mean Platelet Volume 9.2 fL (7.0-11.0); Platelet Count 228 th/mm3 (150-450); Red Blood Count 3.58 mil/mm3 (4.00-5.30); Red Cell Distribution Width 16.1 % (11.6-17.2); White Blood Count 5.3 th/mm3 (4.0-11.0)
[2018-07-29 05:22] LABS: Calcium 7.8 mg/dL (8.5-10.1); Carbon Dioxide 24.8 meq/L (21.0-32.0); Potassium 4.8 meq/L (3.5-5.1)
[2018-07-29] MEDS ORDERED: Insulin NovoLOG Aspart Correctional Sugar Inj SQ SCH (08:00)
--- NOTE | 2018-07-29 08:13 | P.PNIM ---
Subjective Interval history: f/u; COPD exacerbation in no acute distress. has mild wheezing but she says that overall her sob is improving. no fever. Physical Exam Vital signs: Last Vital Signs Temp 97.6 F 07/29/18 05:35 Pulse 81 07/29/18 07:00 Resp 18 07/29/18 05:35 BP 100/48 L 07/29/18 05:35 Pulse Ox 93 L 07/29/18 05:35 Intake & Output 07/27/18 07/28/18 07/29/18 07/30/18 06:59 06:59 06:59 06:59 Intake Total 650 / 650 Balance 650 / 650 Weight 70 kg Constitutional mild distress Routine Respiratory Exam Present decreased breath sounds and wheezes Routine Cardiovascular Exam Present RRR Routine Abdominal Exam Present soft Routine Extremities Exam Comments: mild bilateral pedal edema. Routine Neurological Exam Present alert Results Labs CBC & Chem 7: 07/29/18 02:42 07/29/18 02:42 Imaging Imaging: Impressions Chest CTA 07/28/18 13:07 CONCLUSION: 1. There is no evidence of central pulmonary emboli 2. Significant deterioration appearance of the chest from 05/21/2018. Inflammatory process right lung suspected because of the rapid change. Neoplastic process cannot be entirely excluded. Chest X-Ray 07/28/18 13:07 CONCLUSION: Stable chest compared to 4:52 AM. Venous Doppler Study 07/28/18 13:52 CONCLUSION: 1. Bilateral deep venous thrombosis. Assessment and Plan Plan A/P Acute COPD in exacerbation.with chronic respiratory failure -O2 dependent - received IV Solumedrol- will change to oral Prednisone Continue on duo nebs every 6 scheduled and every 2 as needed continue Levaquin CT shows no pulmonary embolism. Bilateral DVT Start on Eliquis as originally planned 10 mg twice a day for 7 days then 5 mg twice daily. DC'ed heparin drip History of hypertension mildly elevated BNP. Clinically no signs of heart failure We will check a 2D echo. -Continue on lisinopril 10 mg daily. Acute kidney Injury We will start patient on gentle hydration since the patient received IV contrast for the CTA study recheck BMP in a.m. Diabetes type 2 insulin requiring on review of records Check fingersticks 3 times daily and at bedtime Low-dose sliding scale coverage. As outpatient was on Levemir 22 units twice daily. - will start on 10 units hs for now. follow A1C Blood sugar here was 101. Will hold off on long-acting insulin. Left heel stage II ulcer Right thumb cellulitis -wound care consulted. - on levaquin Underlying dementia. Continue on home meds melatonin, mirtazapine, CODE STATUS. Patient is DNR is on facility records Progress Note: Quality VTE Deep Vein Thrombosis/Pulmonary Embolism Present on Admission: Yes
[2018-07-29] MEDS ORDERED: Dextrose 50% in Water 50 ML Vial IV.PUSH PRN (08:16)
[2018-07-29] MEDS: predniSONE 20 MG Tablet PO SCH ×2 (09:47→10:07)
[2018-07-29] MEDS: Sucralfate 1 GM Tablet PO SCH ×2 (09:47→21:07)
[2018-07-29] MEDS: Sodium Chloride 0.9% 2 ML Flush BID IV.FLUSH SCH ×2 (09:48→21:11)
[2018-07-29] MEDS: Famotidine 20 MG Tablet PO SCH ×2 (09:48→21:09)
[2018-07-29] MEDS: Insulin NovoLOG Aspart Correctional Sugar Inj SQ SCH ×4 (11:06→21:10)
--- NOTE | 2018-07-29 13:32 | ECHRPT ---
Indication: Shortness of breath CONCLUSIONS Very technically difficult study. In limited views, the left ventricular systolic function is moderately reduced with an estimated eje ction fraction in the range of 40-45%. Fuvw-ft-rtvcsyhk mitral valve regurgitation. There is estimated llmdzzqc-qt-fythsc pulmonary hypertension present (range 60-70 mmHg). There is moderate tricuspid regurgitation. BP: / HR: Rhythm: Sinus MEASUREMENTS (Male / Female) Normal Values Technical Quality:Very technically difficult study 2D ECHO LV Diastolic Diameter PLAX 3.9 cm 4.2 - 5.9 / 3.9 - 5.3 cm LV Systolic Diameter PLAX 3.2 cm IVS Diastolic Thickness 1.1 cm 0.6 - 1.0 / 0.6 - 0.9 cm LVPW Diastolic Thickness 1.1 cm 0.6 - 1.0 / 0.6 - 0.9 cm LV Relative Wall Thickness 0.6 LVOT Diameter 1.9 cm M-MODE Aortic Root Diameter MM 2.2 cm LA Systolic Diameter MM 3.0 cm LA Ao Ratio MM 1.4 AV Cusp Separation MM 1.6 cm DOPPLER AV Peak Velocity 122.0 cm/s AV Peak Gradient 6.0 mmHg LVOT Peak Velocity 99.7 cm/s LVOT Peak Gradient 4.0 mmHg AV Area Cont Eq pk 2.3 cm MR Peak Velocity 427.5 cm/s MR Peak Gradient 73.1 mmHg TR Peak Velocity 360.0 cm/s TR Peak Gradient 51.8 mmHg Right Atrial Pressure 10.0 mmHg Pulmonary Artery Systolic Pressu 61.8 mmHg Right Ventricular Systolic Press 61.8 mmHg PV Peak Velocity 106.0 cm/s PV Peak Gradient 4.5 mmHg FINDINGS LEFT VENTRICLE In limited views, the left ventricular systolic function is moderately reduced with an estimated eje ction fraction in the range of 40-45%. Wall thickness is normal. Normal left ventricular size. RIGHT VENTRICLE The right ventricle was not well visualized. LEFT ATRIUM Grossly normal RIGHT ATRIUM The right atrium is not well visualized. ATRIAL SEPTUM Normal atrial septal thickness AORTA The aortic root and proximal ascending aorta are normal in size on limited imaging. MITRAL VALVE Grossly normal No mitral valve stenosis. Evoa-bk-ypwwdjvs mitral valve regurgitation. AORTIC VALVE Trileaflet aortic valve. No aortic valve stenosis or regurgitation. TRICUSPID VALVE Grossly normal There is moderate tricuspid regurgitation. The estimated pulmonary arterial pressure is 61.8 mmHg. There is estimated ignmaacr-wz-ibqbpu pulmonary hypertension present (range 60-70 mmHg). PULMONARY VALVE No pulmonary valve regurgitation or stenosis. Leopoldo Newman DO (Electronically Signed) Final Date:29 July 2018 13:32
[2018-07-29 16:25] LABS: Hemoglobin A1c 8.3 % (4.3-6.0)
--- NOTE | 2018-07-29 16:35 | P.PNWCN ---
Wound Care Nurse Consult Description: Received wound pressure ulcer/ wound management consult for L heel and R thumb. Communicated with: RN Nely [facility] and Doctor Valentín Recommendation: 1.Please place heel raiser boots on patient and apply Skin barrier film spray to erythematous heel BID and leave open to air. 2. Please cleanse all skin tears to R arm and R thumb with wound cleanser and pat dry. Apply Versatel one contact layer and secure with rolled gauze and tape. may change rolled gauze as needed if saturated or dislodged. Please leave versatel one in place for 7 days or change if dislodged or saturated. Wound/Pressure Injury - Additional Information Patient seen on [facility] for pressure ulcer/ wound management of L heel and R thumb. Patient is noted with skin tears to R forearm and abrasion to R thumb that is open to air and dry. RN to change dislodged dressing and apply Versatel one to skin tears and abrasion on R thumb, securing with rolled gauze and tape, when versatel one arrives. Assessed patient's L heel to reveal blanchable erythema to intact skin. Recommended heel raiser boots and skin barrier film be applied. Please leave L heel open to air.There are no pressure injuries noted to heels at this time.Patient tolerated wound assessment well.
[2018-07-29] MEDS: MethylPREDNISolone Sod Succinate Inj 125 MG/2 ML Vial IV.PUSH SCH (17:24)
[2018-07-29] MEDS ORDERED: Insulin Detemir Inj 1,000 UNIT/10 ML Vial SQ SCH (21:00)
[2018-07-29] MEDS: Melatonin 5 MG Tablet PO SCH (21:06)
[2018-07-29] MEDS: Mirtazapine 15 MG Tablet PO SCH (21:08)
[2018-07-29] MEDS: Sod Chloride 0.9% Inj 1,000 ML IV.CONT SCH (21:09)
[2018-07-30 06:51] LABS: Hematocrit 32.8 % (35.0-46.0); Hemoglobin 10.7 gm/dL (11.6-15.3); Mean Corpuscular HGB Conc 32.6 % (32.0-36.0); Mean Corpuscular Hemoglobin 29.4 pg (27.0-34.0); Mean Corpuscular Volume 90.3 fL (80.0-100.0); Mean Platelet Volume 9.3 fL (7.0-11.0); Platelet Count 263 th/mm3 (150-450); Red Blood Count 3.63 mil/mm3 (4.00-5.30); Red Cell Distribution Width 16.5 % (11.6-17.2); White Blood Count 13.2 th/mm3 (4.0-11.0)
[2018-07-30 07:06] LABS: Calcium 8.3 mg/dL (8.5-10.1); Carbon Dioxide 27.2 meq/L (21.0-32.0); Potassium 3.8 meq/L (3.5-5.1)
[2018-07-30] MEDS: predniSONE 20 MG Tablet PO SCH ×2 (08:56→21:18)
[2018-07-30] MEDS: Famotidine 20 MG Tablet PO SCH ×2 (08:56→21:25)
[2018-07-30] MEDS: Insulin NovoLOG Aspart Correctional Sugar Inj SQ SCH ×4 (08:57→21:23)
[2018-07-30] MEDS: Sucralfate 1 GM Tablet PO SCH ×2 (08:57→21:16)
[2018-07-30] MEDS: Sodium Chloride 0.9% 2 ML Flush BID IV.FLUSH SCH ×2 (08:58→21:25)
[2018-07-30] MEDS ORDERED: levoFLOXacin 750 MG Tablet PO SCH (09:00)
--- NOTE | 2018-07-30 13:32 | P.PNIM ---
Subjective Interval history: For shortness of breath, right hand cellulitis Shortness of breath a little bit better but not back to baseline, on 6 L of oxygen. No chest pain or palpitations., No cough Mild lower extremity pain. Patient also complaining of thumb pain bilaterally , no fever. Physical Exam Vital signs: Last Vital Signs Temp 98.3 F 07/30/18 11:00 Pulse 113 H 07/30/18 12:00 Resp 20 07/30/18 11:00 BP 113/60 07/30/18 11:00 Pulse Ox 92 L 07/30/18 11:00 Intake & Output 07/28/18 07/29/18 07/30/18 07/31/18 06:59 06:59 06:59 06:59 Intake Total 650 / 650 1720 / 1720 Output Total 1220 / 1220 Balance 650 / 650 500 / 500 Weight 70 kg 68.5 kg Narrative: Patient is awake, alert, follows commands. Anicteric Regular rhythm, tachycardic, no murmurs appreciated Bilateral breath sounds equal equal, positive wheezing, no crackles Abdomen soft, flabby No edema Right thumb wound, less than 1 cm, at the base with mild erythema, no induration , no abscess, no tenderness. Right forearm with superficial tear Awake, alert, oriented to place and person, she knows who the president is. Results Labs CBC & Chem 7: 07/30/18 05:24 07/30/18 05:24 Assessment and Plan Attending Attestation This is a 73-year-old female who lives in an [facility] with history of diabetes mellitus, hypertension, baseline dementia, type 2 diabetes mellitus, COPD on oxygen at 4 L nasal cannula who was sent to the hospital because of bilateral DVT and shortness of breath. Upon ED evaluation, the patient was found to have diffuse wheezing and was thought to have COPD exacerbation. Acute hypoxia secondary to COPD in exacerbation with chronic respiratory failure , possible underlying pneumonia-O2 dependent, on 4 L of oxygen. On continue duo nebs, continue Levaquin. Restart steroids at 40 mg twice a day now. CT scan of the chest did not show any pulmonary embolism. CT however showed extensive edematous changes with airspace disease and pleural thickening beginning in the right upper lobe towards the right base. No suspected lesions in the left lung. There is also mediastinal adenopathy worse on the right hilum. Follow-up echocardiogram. Bilateral DVT-CT chest ruled out PE. Continue Eliquis. Off heparin drip. Tachycardia-sinus rhythm, restart Klonopin. History of hypertension-blood pressure stable, restart lisinopril, hold Norvasc. Acute kidney Injury, could be from hypovolemia--gentle hydration, BMP improving , recheck BMP tomorrow. Creatinine 1.41. Diabetes type 2 insulin requiring, uncontrolled, with skin ulcer-BG's from 280s- 300. On Levemir 22 units twice a day at home with 3 units of aspart 3 times a day, presently on 10 units, restart 22 units HS, hemoglobin A1c 8.3. Continue sliding scale insulin. Left heel stage II ulcer, Right thumb cellulitis-wound care following. On Levaquin. Underlying dementia-Continue on home meds melatonin, mirtazapine, Anxiety-on Klonopin 3 times a day as needed, will restart, patient is tachycardic, could be beginning withdrawal Mechanical soft thin liquids. CODE STATUS. Patient is DNR D/C to SNF when ready Progress Note: Quality VTE Deep Vein Thrombosis/Pulmonary Embolism Present on Admission: Yes
[2018-07-30] MEDS: clonazePAM 0.5 MG Tablet PO PRN ×2 (14:40→21:41)
[2018-07-30] MEDS ORDERED: Insulin Detemir Inj 1,000 UNIT/10 ML Vial SQ SCH (21:00)
[2018-07-30] MEDS: Mirtazapine 15 MG Tablet PO SCH (21:16)
[2018-07-30] MEDS: Sod Chloride 0.9% Inj 1,000 ML IV.CONT SCH (21:21)
[2018-07-30] MEDS: Melatonin 5 MG Tablet PO SCH (21:24)
[2018-07-31 08:26] LABS: Hematocrit 34.3 % (35.0-46.0); Hemoglobin 11.3 gm/dL (11.6-15.3); Mean Corpuscular HGB Conc 32.9 % (32.0-36.0); Mean Corpuscular Hemoglobin 29.8 pg (27.0-34.0); Mean Corpuscular Volume 90.5 fL (80.0-100.0); Mean Platelet Volume 9.1 fL (7.0-11.0); Platelet Count 249 th/mm3 (150-450); Red Blood Count 3.79 mil/mm3 (4.00-5.30); Red Cell Distribution Width 16.6 % (11.6-17.2); White Blood Count 9.5 th/mm3 (4.0-11.0)
[2018-07-31 08:43] LABS: Calcium 8.2 mg/dL (8.5-10.1); Carbon Dioxide 24.1 meq/L (21.0-32.0); Potassium 4.5 meq/L (3.5-5.1)
[2018-07-31] MEDS: Famotidine 20 MG Tablet PO SCH (08:58)
[2018-07-31] MEDS: Sucralfate 1 GM Tablet PO SCH (08:58)
[2018-07-31] MEDS: predniSONE 20 MG Tablet PO SCH (08:58)
[2018-07-31] MEDS: Insulin NovoLOG Aspart Correctional Sugar Inj SQ SCH ×2 (08:59→11:27)
[2018-07-31] MEDS: Sodium Chloride 0.9% 2 ML Flush BID IV.FLUSH SCH (08:59)
[2018-07-31] MEDS ORDERED: Sertraline 100 MG Tablet PO SCH (09:00)
[2018-07-31] MEDS ORDERED: Docusate Sodium 100 MG Capsule PO SCH (09:00)
[2018-07-31] MEDS ORDERED: Lisinopril 10 MG Tablet PO SCH (09:00)
--- NOTE | 2018-07-31 09:48 | P.PNIM ---
Subjective Interval history: Follow-up for shortness of breath Shortness of breath at baseline, will titrate oxygen to 4 L, no chest pain, no palpitations. No nausea or vomiting. Creatinine is back to baseline. Blood glucose is better. Heart rate is in the 90s. Physical Exam Vital signs: Last Vital Signs Temp 98.6 F 07/31/18 08:00 Pulse 91 H 07/31/18 09:00 Resp 14 07/31/18 09:00 BP 105/59 L 07/31/18 08:00 Pulse Ox 98 07/31/18 08:00 Intake & Output 07/29/18 07/30/18 07/31/18 08/01/18 06:59 06:59 06:59 06:59 Intake Total 650 / 650 1720 / 1720 1291 / 1291 250 / 250 Output Total 1220 / 1220 540 / 540 Balance 650 / 650 500 / 500 751 / 751 250 / 250 Weight 70 kg 68.5 kg 70.8 kg Narrative: Patient is awake, alert, follows commands. Anicteric Regular rhythm, normal rate, no murmurs appreciated Bilateral breath sounds equal equal, no wheezing, no crackles Abdomen soft, flabby No edema Right thumb wound, less than 1 cm, at the base with mild erythema, no induration , no abscess, no tenderness. Right forearm with superficial tear Awake, alert, oriented to place and person, she knows who the president is. Results Labs CBC & Chem 7: 07/31/18 07:17 07/31/18 07:17 Assessment and Plan Plan This is a 73-year-old female who lives in an [facility] with history of diabetes mellitus, hypertension, baseline dementia, type 2 diabetes mellitus, COPD on oxygen at 4 L nasal cannula who was sent to the hospital because of bilateral DVT and shortness of breath. Upon ED evaluation, the patient was found to have diffuse wheezing and was thought to have COPD exacerbation. Acute hypoxia secondary to COPD in exacerbation with chronic respiratory failure , possible underlying pneumonia-O2 dependent, on 4 L of oxygen. On continue duo nebs, continue Levaquin. Continue prednisone 40 mg twice a day, slow taper upon discharge. CT scan of the chest did not show any pulmonary embolism. CT however showed extensive edematous changes with airspace disease and pleural thickening beginning in the right upper lobe towards the right base. No suspected lesions in the left lung. There is also mediastinal adenopathy worse on the right hilum. Echocardiogram showed ejection fraction of 40-45% with mild to moderate mitral valve regurgitation. Bilateral DVT-CT chest ruled out PE. Continue Eliquis. Off heparin drip. Tachycardia-sinus rhythm, restart Klonopin. Heart rate better. History of hypertension-blood pressure stable, continue lisinopril, hold Norvasc. Acute kidney Injury, could be from hypovolemia--gentle hydration, BMP improved, creatinine back to baseline at 1.04. Diabetes type 2 insulin requiring, uncontrolled, with skin ulcer-BG's from 280s- 300. On Levemir 22 units twice a day at home with 3 units of aspart 3 times a day, presently on 10 units, restart 22 units HS, hemoglobin A1c 8.3. Continue sliding scale insulin. Left heel stage II ulcer, Right thumb cellulitis-wound care following. Finish Levaquin. Underlying dementia-Continue on home meds melatonin, mirtazapine, Anxiety-on Klonopin 3 times a day as needed, continue Mechanical soft thin liquids. CODE STATUS. Patient is DNR D/C to SNF when ready Discharge to snf today. Progress Note: Quality VTE Deep Vein Thrombosis/Pulmonary Embolism Present on Admission: Yes
--- NOTE | 2018-07-31 10:28 | P.DS ---
DS: Providers Date of admission: 07/28/18 15:45 Primary care physician: UNKNOWN Consults: 07/30/18 10:10 HUB Only Consult Order Routine Consulting Provider: Sernia Salazar Brief History from admission: Patient is a 73-year-old female, resident of a nearby assisted living facility with history of diabetes type 2 insulin requiring, hypertension, baseline dementia, diabetes type 2 insulin requiring, COPD on O2 dependent 4 L nasal cannula. Patient is a resident of [facility] who was sent here because. Patient states he is states that she gets around with a wheelchair and when asked why she stated that I hurt all over, she states she eats regular diet consistency,. On review of records she was sent here because of bilateral DVT that was noted yesterday on on arterial Doppler study. she was started on apixaban 10 mg twice daily last evening. This morning was noted to be short of breath and was sent here for further evaluation. CTA of the chest was done and ruled out pulmonary embolism. Patient denies any fever or chills. Patient does cough. Review of labs shows no white count. On initial evaluation - ER MD notes with diffuse wheezing. Now patient currently on nasal cannula at 4 L Sat at 90%. Is awake alert oriented to person and year. Very interactive and a little manic Exam shows some occasional few expiratory wheeze Admitted for further evaluation and management. Review of records patient just completed a course of prednisone few days ago . She is on ranitidine, Zoloft, tramadol, amlodipine 5 mg twice a day, clonazepam 0.5 3 times daily, lisinopril 10 mg daily, melatonin 3 mg at bedtime mirtazapine 30 mg at bedtime multivitamin, Levemir 22 units subcu twice daily and p.o. Levaquin DS: Diagnosis Discharge Diagnosis (1) Respiratory failure: Status: Acute (2) COPD exacerbation: Status: Acute (3) Pneumonia: Status: Acute (4) DVT (deep venous thrombosis): Status: Acute DS: Summary This is a 73-year-old female who lives in an [facility] with history of diabetes mellitus, hypertension, baseline dementia, type 2 diabetes mellitus, COPD on oxygen at 4 L nasal cannula who was sent to the hospital because of bilateral DVT and shortness of breath. Upon ED evaluation, the patient was found to have diffuse wheezing and was thought to have COPD exacerbation. Patient was found to have acute hypoxic respiratory failure secondary to COPD exacerbation on top of chronic respiratory failure with underlying pneumonia. Patient was getting Levaquin prior to admission. Patient was started on Levaquin, joana justice, continued on steroids 40 mg twice a day. CT scan of the chest did not show any pulmonary embolism. CT however showed extensive edematous changes with airspace disease and pleural thickening beginning in the right upper lobe towards the right base. No suspected lesions in the left lung. There is also mediastinal adenopathy worse on the right hilum. Echocardiogram showed ejection fraction of 40-45% with mild to moderate mitral valve regurgitation. She was initially placed on heparin drip, when patient remained stable and PE was ruled out, patient was switched to Eliquis and she will continue on Eliquis 10 mg twice a day for 7 days and then switch to 5 mg twice a day. She had mild acute renal failure from hypovolemia which improved with volume resuscitation. Her diabetes was controlled using her home medications with insulin. She was also found to have mild right thumb cellulitis, she will also be on Levaquin for this. She [facility] be [facility] to [facility]. Her prednisone needs to be tapered based on clinical response. Time Spent with Patient Total time spent providing and/or coordinating discharge services: Greater than 30 minutes Quality: VTE Deep Vein Thrombosis/Pulmonary Embolism Present on Admission: Yes Exam Narrative Exam Narrative: atient is awake, alert, follows commands. Anicteric Regular rhythm, normal rate, no murmurs appreciated Bilateral breath sounds equal equal, no wheezing, no crackles Abdomen soft, flabby No edema Right thumb wound, less than 1 cm, at the base with mild erythema, no induration , no abscess, no tenderness. Right forearm with superficial tear Awake, alert, oriented to place and person, she knows who the president is. Results Labs on day of discharge: Labs from last 24 hours 07/31/18 07/31/18 07/31/18 08:56 07:17 07:17 WBC 9.5 RBC 3.79 L Hgb 11.3 L Hct 34.3 L MCV 90.5 MCH 29.8 MCHC 32.9 RDW 16.6 Plt Count 249 MPV 9.1 Sodium 143 Potassium 4.5 Chloride 111 H Carbon Dioxide 24.1 Anion Gap 8 BUN 32 H Creatinine 1.04 H Estimated GFR 52 L POC Glucose 233 H Random Glucose 233 H Calcium 8.2 L 07/30/18 07/30/18 07/30/18 21:17 17:17 12:08 WBC RBC Hgb Hct MCV MCH MCHC RDW Plt Count MPV Sodium Potassium Chloride Carbon Dioxide Anion Gap BUN Creatinine Estimated GFR POC Glucose 374 H 396 H 104 Random Glucose Calcium Impressions ITS Impressions Chest CTA 07/28/18 13:07 CONCLUSION: 1. There is no evidence of central pulmonary emboli 2. Significant deterioration appearance of the chest from 05/21/2018. Inflammatory process right lung suspected because of the rapid change. Neoplastic process cannot be entirely excluded. Chest X-Ray 07/28/18 13:07 CONCLUSION: Stable chest compared to 4:52 AM. Venous Doppler Study 07/28/18 13:52 CONCLUSION: 1. Bilateral deep venous thrombosis. Discharge Plan Discharge Disposition Patient Disposition: Discharge to SNF Discharge Condition Condition: Good Discharge Order Discharge Orders: Discharge Order (Routine); Ordered 07/31/18 Ordered By: Robb Madera Discharge Details Anticipated Discharge Date: 07/31/18 Discharge Comment: d/c if SaO2 is >88% on 4 L of oxygen Physicians Team ED Provider: Janelle Asencio Primary Care Provider: UNKNOWN, Attending Provider: Robb Madera [facility] Rxs /Orders / Referrals /Forms Prescriptions: New clonazepam [Klonopin] 0.5 mg Tablet 0.5 mg PO TID PRN (Reason: Anxiety) Qty: 6 RF: 0 tramadol [Ultram] 50 mg Tablet 50 mg PO TID PRN (Reason: pain 1-10) Qty: 5 RF: 0 apixaban [Eliquis] 5 mg Tablet 10 mg PO BID 5 Days Qty: 20 RF: 0 apixaban [Eliquis] 5 mg Tablet 5 mg PO BID Qty: 60 RF: 0 insulin detemir U-100 [Levemir U-100 Insulin] 100 unit/mL Solution 22 unit subcut HS Qty: 30 RF: 0 lisinopril 10 mg Tablet 5 mg PO DAILY Qty: 30 RF: 0 levofloxacin 750 mg Tablet 750 mg PO Q48H Qty: 3 RF: 0 Continue sucralfate 1 gram Tablet 1 g PO BID RF: 0 sertraline 100 mg Tablet 150 mg PO DAILY RF: 0 melatonin 3 mg Tablet 3 mg PO HS RF: 0 ranitidine HCl 75 mg Tablet 75 mg PO BID RF: 0 mirtazapine [Remeron] 30 mg Tablet 30 mg PO HS RF: 0 nitroglycerin 0.4 mg Tablet, Sublingual 0.4 mg SUBLINGUAL Q5-15M PRN (Reason: Chest Pain) RF: 0 docusate sodium 100 mg Capsule 100 mg PO DAILY RF: 0 ipratropium-albuterol 0.5 mg-3 mg(2.5 mg base)/3 mL Solution For Nebulization 1 amp NEB Q4HR NEB PRN (Reason: SOB/Wheezing) RF: 0 insulin aspart U-100 [Novolog U-100 Insulin aspart] 100 unit/mL Solution 3 unit SUBCUT ACHS RF: 0 ipratropium-albuterol [Combivent Respimat] 20-100 mcg/actuation Mist 2 puff INHALATION Q6H RF: 0 prednisone 10 mg tablet 40 mg PO BID RF: 0 Discontinued clonazepam [Klonopin] 0.5 mg Tablet 0.5 mg PO TID RF: 0 tramadol 50 mg Tablet 50 mg PO TID RF: 0 amlodipine 10 mg Tablet 10 mg PO DAILY RF: 0 lisinopril 10 mg Tablet 10 mg PO DAILY RF: 0 insulin detemir U-100 [Levemir FlexTouch U-100 Insuln] 100 unit/mL (3 mL) Insulin Pen 22 unit SUBCUT AC RF: 0 apixaban 5 mg Tablet 5 mg PO BID RF: 0 levofloxacin 500 mg tablet 750 mg PO DAILY RF: 0 Referrals: UNKNOWN, [Primary Care Provider] - See Instructions Status ED Status: Left Department
[2018-07-31] MEDS ORDERED: Lisinopril 5 MG Tablet PO SCH (11:00)
== END 2018-07-31 16:29 ==
LOC: NEPC 12:39 → NEDA 15:45 → NEDH 20:18 → HCPC 07-29 00:05 → HCIS 07-29 08:26
PROVIDERS: ADMIT Hospitalist; ATTEND Hospitalist
DX: E86.1 Hypovolemia; I34.0 Nonrheumatic mitral (valve) insufficiency; I10 Essential (primary) hypertension; Z66 Do not resuscitate; Z87.891 Personal history of nicotine dependence; E11.621 Type 2 diabetes mellitus with foot ulcer; N17.9 Acute kidney failure, unspecified; L97.429 Non-pressure chronic ulcer of left heel and midfoot with unspecified severity; I82.812 Embolism and thrombosis of superficial veins of left lower extremity; J18.9 Pneumonia, unspecified organism; M06.9 Rheumatoid arthritis, unspecified; Z79.01 Long term (current) use of anticoagulants; J96.21 Acute and chronic respiratory failure with hypoxia; I82.432 Acute embolism and thrombosis of left popliteal vein; F03.90 Unspecified dementia, unspecified severity, without behavioral disturbance, psychotic disturbance, mood disturbance, and anxiety; Z99.81 Dependence on supplemental oxygen; E11.65 Type 2 diabetes mellitus with hyperglycemia; R59.0 Localized enlarged lymph nodes; L03.113 Cellulitis of right upper limb; J44.1 Chronic obstructive pulmonary disease with (acute) exacerbation; L03.011 Cellulitis of right finger; R00.0 Tachycardia, unspecified; Z79.4 Long term (current) use of insulin; J44.0 Chronic obstructive pulmonary disease with (acute) lower respiratory infection; I82.413 Acute embolism and thrombosis of femoral vein, bilateral